=== PATIENT | male | born 1955 | race American Indian/Alaskan Native ===

== ENCOUNTER 2017-07-08 15:11 | Inpatient (IN) | payer MEDICAID, OTHER ==
--- NOTE | 2017-07-08 15:34 | ED PDOC ---
Arrival/HPI - General Chief Complaint: Psychiatric Evaluation Time Seen by Provider: 07/08/17 15:13 Historian: Patient - History of Present Illness Narrative History of Present Illness (Text): 07/08/17 15:30 A 62 year old male, whose past medical history includes liver cirrhosis and bipolar disorder, was [facility] for reported [facility] behavior. Limited history provided by penitentiary record. Patient is currently alert, awake and cooperative. He denies any physical complaints at this time. Patient denies any fever, chills, nausea, vomiting, abdominal pain, chest pain, shortness of breath or any other complaints. Time/Duration: Prior to Arrival Context: Home (penitentiary) Past Medical History - Provider Review Nursing Documentation Reviewed: Yes - Infectious Disease Hx of Infectious Diseases: None - Cardiac Hx Hypertension: Yes - Hematological/Oncological Hx Cirrhosis: Yes - Psychiatric Hx Bipolar Disorder: Yes Hx Substance Use: No Family/Social History - Physician Review Nursing Documentation Reviewed: Yes Family/Social History: No Known Family HX Smoking Status: Unknown If Ever Smoked Hx Alcohol Use: No Hx Substance Use: No Allergies/Home Meds Allergies/Adverse Reactions: Allergies clonidine Allergy (Verified 07/08/17 15:26) RASH Penicillins Allergy (Verified 07/08/17 15:26) RASH codone Allergy (Uncoded 07/08/17 15:26) RASH Home Medications: Home Meds Medication Instructions Recorded Confirmed Acetaminophen [Tylenol 325mg tab] 650 mg PO Q4 PRN 07/08/17 07/08/17 Aspirin [Ecotrin] 81 mg PO DAILY 07/08/17 07/08/17 Atorvastatin [Lipitor] 20 mg PO DAILY 07/08/17 07/08/17 Bisacodyl [Dulcolax] 0 mg RC PRN PRN 07/08/17 07/08/17 Furosemide [Lasix] 40 mg PO DAILY 07/08/17 07/08/17 Gabapentin [Neurontin] 100 mg PO BID 07/08/17 07/08/17 Levothyroxine [Levoxyl] 0.05 mg PO DAILY 07/08/17 07/08/17 Losartan [Cozaar] 50 mg PO DAILY 07/08/17 07/08/17 Magnesium Hydroxide [Milk Of 30 ml PO PRN PRN 07/08/17 07/08/17 Magnesia] Metoprolol Tartrate [Lopressor] 25 mg PO BID 07/08/17 07/08/17 Omeprazole 20 mg PO DAILY 07/08/17 07/08/17 QUEtiapine [SEROquel] 50 mg PO BID 07/08/17 07/08/17 Sod Phos,M-B/Na Phos,Di-Ba [Fleet 0 ml RC PRN PRN 07/08/17 07/08/17 Enema] Review of Systems - Physician Review All systems were reviewed & negative as marked: Yes - Review of Systems Constitutional: Normal. absent: Fevers, Night Sweats Respiratory: absent: SOB Cardiovascular: absent: Chest Pain Gastrointestinal: absent: Abdominal Pain, Nausea, Vomiting Psychiatric: Other (Nursig home reported aggressive behavior) Physical Exam Vital Signs Reviewed: Yes Vital Signs Temp Pulse Resp BP Pulse Ox 07/08/17 15:15 98.0 F 66 16 108/62 96 Temperature: Afebrile Blood Pressure: Normal Pulse: Regular Respiratory Rate: Normal Appearance: Positive for: Well-Appearing, Non-Toxic, Comfortable Pain Distress: None Mental Status: Positive for: Alert and Oriented X 3, other (Cooperative) - Systems Exam Head: Present: Atraumatic, Normocephalic Pupils: Present: PERRL Extroacular Muscles: Present: EOMI Conjunctiva: Present: Normal Mouth: Present: Moist Mucous Membranes Neck: Present: Normal Range of Motion Respiratory/Chest: Present: Clear to Auscultation, Good Air Exchange. No: Respiratory Distress, Accessory Muscle Use Cardiovascular: Present: Regular Rate and Rhythm, Normal S1, S2. No: Murmurs Abdomen: Present: Normal Bowel Sounds. No: Tenderness, Distention, Peritoneal Signs Back: Present: Normal Inspection Upper Extremity: Present: Normal Inspection. No: Cyanosis, Edema Lower Extremity: Present: Normal Inspection. No: Edema Neurological: Present: GCS=15, CN II-XII Intact, Speech Normal Skin: Present: Warm, Dry, Normal Color. No: Rashes Psychiatric: Present: Alert, Oriented x 3, Normal Insight, Normal Concentration Medical Decision Making ED Course and Treatment: 07/08/17 15:30 Impression: A 62 year old male sent from [facility]entiary for aggressive behavior. At bedside, patient is alert, awake and cooperative. He denies any complaints. Plan: -- Chest xray -- EKG -- Labs -- Urinalysis -- Reassess and disposition Progress Notes: EKG shows NSR at [address]/T wave changes. Interpreted by me. Report Date : 07/08/2017 15:48:31 Procedure: Chest xray Dictator : Parvez Bajwa MD IMPRESSION: No active disease. 07/08/17 18:[address] Oliver, covering for Dr. Back, who accepts patient admission. - Lab Interpretations Lab Results: 07/08/17 16:12 07/08/17 16:12 Lab Results 07/08/17 17:55: Ammonia 74 H 07/08/17 16:12: Alcohol, Quantitative < 10 07/08/17 16:12: Salicylates < 1 L, Acetaminophen < 10.0 L 07/08/17 16:12: Sodium 138, Potassium 4.3, Chloride 107, Carbon Dioxide 22, Anion Gap 13, BUN 19, Creatinine 1.7 H, Est GFR ( Amer) 50, Est GFR (Non- Af Amer) 41, Random Glucose 94, Calcium 8.4, Total Bilirubin 0.8, AST 70 H, ALT 66 H, Alkaline Phosphatase 110, Total Protein 6.6, Albumin 3.2, Globulin 3.5, Albumin/Globulin Ratio 0.9 L 07/08/17 16:12: WBC 3.4 L, RBC 2.60 L, Hgb 9.3 L, Hct 25.9 L, MCV 99.6, MCH 35.8 H, MCHC 35.9, RDW 14.3, Plt Count 99 L, MPV 11.4 H, Gran % 48.6 L, Lymph % (Auto) 33.2, [place] % (Auto) 14.7 H, Eos % (Auto) 3.2, Baso % (Auto) 0.3, Gran # 1.65, Lymph # 1.1 L, [place] # 0.5, Eos # 0.1, Baso # 0.01, Corrected WBC (Man) Cancelled, Neutrophils % (Manual) Cancelled, Band Neutrophils % Cancelled, Lymphocytes % (Manual) Cancelled, Atypical Lymphs % Cancelled, Monocytes % ( Manual) Cancelled, Eosinophils % (Manual) Cancelled, Basophils % (Manual) Cancelled, Metamyelocytes % Cancelled, Myelocytes % Cancelled, Promyelocytes % Cancelled, Nucleated RBC % Cancelled, Hypersegmented Polys Cancelled, Immature Lymphocytes Cancelled, Blast Cells Cancelled, Smudge Cells Cancelled, Toxic Granulation Cancelled, Dohle Bodies Cancelled, Zenia Rods Cancelled, Platelet Evaluation Cancelled, Plt Clumps, EDTA Cancelled, Large Platelets Cancelled, Giant Platelets Cancelled, Polychromasia Cancelled, Hypochromasia Cancelled, Hyperchromasia Cancelled, Poikilocytosis (manual Cancelled, Basophilic Stippling Cancelled, Anisocytosis (manual) Cancelled, Microcytosis (manual) Cancelled, Macrocytosis (manual) Cancelled, Spherocytes Cancelled, Sickle Cells Cancelled, Target Cells Cancelled, Tear Drop Cells Cancelled, Ovalocytes Cancelled, Stomatocytes Cancelled, Helmet Cells Cancelled, Dickerson Rings Cancelled , Mary Cells Cancelled, Acanthocytes (Spur) Cancelled, Rouleaux Cancelled, Schistocytes Cancelled I have reviewed the lab results: Yes - RAD Interpretation Radiology Orders: 07/08/17 15:29 CHEST PORTABLE [RAD] Stat - Medication Orders Current Medication Orders: Acetaminophen (Tylenol 325mg Tab) 650 mg PO Q4 PRN PRN Reason: Pain, moderate (4-7) Aspirin (Ecotrin) 81 mg PO DAILY AMY Atorvastatin Calcium (Lipitor) 20 mg PO DAILY AMY Furosemide (Lasix) 40 mg PO DAILY AMY Gabapentin (Neurontin) 100 mg PO BID AMY PRN Reason: Protocol Lactulose (Enulose) 20 gm PO DAILY AMY Levothyroxine Sodium (Synthroid) 50 mcg PO ACB AMY Losartan Potassium (Cozaar) 50 mg PO DAILY AMY Metoprolol Tartrate (Lopressor) 25 mg PO BID AMY Pantoprazole Sodium (Protonix Ec Tab) 20 mg PO DAILY AMY Quetiapine Fumarate (Seroquel) 50 mg PO BID AMY PRN Reason: Protocol Discontinued Medications Lactulose (Enulose) 20 gm PO STAT STA Stop: 07/08/17 18:52 Last Admin: 07/08/17 20:20 Dose: 20 gm Lorazepam (Ativan) 0.5 mg PO STAT STA PRN Reason: Protocol Stop: 07/08/17 20:19 Last Admin: 07/08/17 20:22 Dose: 0.5 mg Re-Assess: Reassess Psych Meds Document 07/08/17 21:22 NW (Rec: 07/08/17 21:24 [id number]) Reassess Psych Med Effective - Scribe Statement The provider has reviewed the documentation as recorded by the Scribe Inés Benitez Provider Scribe Attestation: All medical record entries made by the Scribe were at my direction and personally dictated by me. I have reviewed the chart and agree that the record accurately reflects my personal performance of the history, physical exam, medical decision making, and the department course for this patient. I have also personally directed, reviewed, and agree with the discharge instructions and disposition. Disposition/Present on Arrival - Present on Arrival Any Indicators Present on Arrival: No History of DVT/PE: No History of Uncontrolled Diabetes: No Urinary Catheter: No History of Decub. Ulcer: No History Surgical Site Infection Following: None - Disposition Have Diagnosis and Disposition been Completed?: Yes Diagnosis: Hyperammonemia Disposition: HOSPITALIZED Disposition Time: 07:00 Condition: STABLE
--- NOTE | 2017-07-08 15:49 | RAD ---
HISTORY: pysch COMPARISON: No prior. FINDINGS: LUNGS: No active pulmonary disease. PLEURA: No significant pleural effusion identified, no pneumothorax apparent. CARDIOVASCULAR: Normal. OSSEOUS STRUCTURES: No significant abnormalities. VISUALIZED UPPER ABDOMEN: Normal. OTHER FINDINGS: None. IMPRESSION: No active disease.
[2017-07-08 16:42] LABS: BASO # 0.01 K/mm3 (0.0-2.0); BASO % 0.3 % (0.0-3.0); EOS # 0.1 (0.0-0.7); EOS % 3.2 % (1.5-5.0); GRAN # 1.65 (1.4-6.5); GRAN % 48.6 % (50.0-68.0); HEMATOCRIT 25.9 % (42.0-52.0); LYMPH # 1.1 (1.2-3.4); LYMPH % 33.2 % (22.0-35.0); MEAN CELL VOLUME 99.6 fl (80.0-105.0); MEAN CORPUSCULAR HEMOGLOBIN 35.8 pg (25.0-35.0); MEAN CORPUSCULAR HGB CONC 35.9 g/dl (31.0-37.0); MEAN PLATELET VOLUME 11.4 fl (7.0-11.0); MONO # 0.5 (0.1-0.6); MONO % 14.7 % (1.0-6.0); RED CELL DISTRIBUTION WIDTH 14.3 % (11.5-14.5); WHITE BLOOD COUNT 3.4 10^3/ul (4.5-11.0)
[2017-07-08 16:47] LABS: ALB/GLOB RATIO 0.9 (1.1-1.8); BILIRUBIN,TOTAL 0.8 mg/dL (0.2-1.3); CALCIUM 8.4 mg/dL (8.4-10.5); POTASSIUM 4.3 mmol/L (3.6-5.0); TOTAL PROTEIN 6.6 g/dL (5.8-8.3)
[2017-07-08 21:46] VITALS: BMI 40.1
[2017-07-08] MEDS ORDERED: QUEtiapine 50 mg XR Tab PO STA (23:13)
--- NOTE | 2017-07-09 04:25 | HP ---
HISTORY OF PRESENT ILLNESS: This is a 62-year-old white male patient who was transferred from custodial because he was manifesting aggressive behavior and confusion. The patient has underlying history of cirrhosis of the liver. Patient also has history of bipolar disorder. PAST MEDICAL HISTORY: Significant that patient has had the history of bipolar disorder before going to the custodial. ALLERGIES: CLONIDINE, PENICILLIN, AND CODEINE. PHYSICAL EXAMINATION: VITAL SIGNS: Temperature 98, pulse is 66 per minute, blood pressure 108/62, patient's oxygen saturation on room air is 96%, respiratory rate is 16. HEENT: Examination of the head is normocephalic. SKIN: The skin shows evidence of leukoderma. NECK: The thyroid is not enlarged. The carotid pulses are present. LUNGS: Trachea is central. Breath sounds are vesicular. No adventitious sounds. HEART: S1 and S2 present. No murmurs, no rubs. ABDOMEN: Soft. Liver and spleen are not palpable. Clinically, patient has no ascites. CENTRAL NERVOUS SYSTEM: Patient has a state of aggressive obsessive personality at this time. Patient has no neurological deficits. He is able to sit up independently and walk. LABORATORY DATA: Blood work; the white count is 3400, patient's hemoglobin is 9.3. Chemistry; the patient's ammonia level is 74, which is elevated. The patient's creatinine is 1.7. GFR is 50, which is low. His EKG and chest x-rays did not reveal any pathology at this time. IMPRESSION AND PLAN: The patient is admitted with altered mental state, behavioral disorder. The patient has cirrhosis of the liver with elevated ammonia level. We are calling a psychiatrist to see the patient and also a consultation with cylinder inspector and tester, Dr. Chevy George for evaluation of the liver disease. The patient's condition seems to be critically stable at this time. His overall prognosis is guarded. We will continue to care for the patient until the patient is seen by his attending physician, Dr. Ezekiel Back, tomorrow morning. Fan Oliver MD ARIEL
--- NOTE | 2017-07-09 06:51 | CP.PCM.PN ---
<Clary Uribe - Last Filed: 07/09/17 11:44> Subjective - Date & Time of Evaluation Date of Evaluation: 07/09/17 Time of Evaluation: 06:50 - Subjective Subjective: Medicine Progress Note for Abdi Rodríguez PGY2 Patient seen and examined at bedside. As per nursing, there were no acute overnight events. Patient feels well today. He is A&O x 2. He denies CP, SOB, n/ v/d, numbness/tingling, fever or chills. He only had 2 BMs since yesterday while on the lactulose. Objective - Vital Signs/Intake and Output Vital Signs (last 24 hours): Temp Pulse Resp BP Pulse Ox 98.0 F 57 L 20 111/63 96 07/08/17 21:23 07/08/17 21:23 07/08/17 21:23 07/08/17 21:23 07/08/17 21:08 Intake and Output: 07/08/17 07/09/17 18:59 06:59 Intake Total 240 Balance 240 - Medications Medications: Current Medications Acetaminophen (Tylenol 325mg Tab) 650 mg PO Q4 PRN PRN Reason: Pain, moderate (4-7) Aspirin (Ecotrin) 81 mg PO DAILY AMY Atorvastatin Calcium (Lipitor) 20 mg PO DAILY AMY Furosemide (Lasix) 40 mg PO DAILY AMY Gabapentin (Neurontin) 100 mg PO BID AMY PRN Reason: Protocol Lactulose (Enulose) 20 gm PO DAILY AMY Levothyroxine Sodium (Synthroid) 50 mcg PO ACB AMY Losartan Potassium (Cozaar) 50 mg PO DAILY AMY Metoprolol Tartrate (Lopressor) 25 mg PO BID AMY Pantoprazole Sodium (Protonix Ec Tab) 20 mg PO DAILY AYM Quetiapine Fumarate (Seroquel) 50 mg PO BID AMY PRN Reason: Protocol - Constitutional Appears: No Acute Distress - Head Exam Head Exam: ATRAUMATIC, NORMAL INSPECTION, NORMOCEPHALIC - Eye Exam Eye Exam: EOMI, Normal appearance, PERRL Pupil Exam: NORMAL ACCOMODATION, PERRL - ENT Exam ENT Exam: Mucous Membranes Moist - Neck Exam Neck Exam: Full ROM - Respiratory Exam Respiratory Exam: Clear to Ausculation Bilateral, NORMAL BREATHING PATTERN. absent: Rales, Rhonchi, Wheezes - Cardiovascular Exam Cardiovascular Exam: REGULAR RHYTHM, +S1, +S2. absent: Gallop, Rubs, Murmur - GI/Abdominal Exam GI & Abdominal Exam: Soft, Normal Bowel Sounds. absent: Rigid, Tenderness, Rebound - Extremities Exam Extremities Exam: Normal Inspection. absent: Pedal Edema - Neurological Exam Neurological Exam: Alert, Awake, CN II-XII Intact, Oriented x3 Additional comments: no asterixis - Psychiatric Exam Psychiatric exam: Normal Affect, Normal Mood Additional comments: tangential speech - Skin Skin Exam: Dry, Intact, Warm Additional comments: vitiligo Assessment and Plan - Assessment and Plan (Free Text) Assessment: This is a 62Y M with PMh of bipolar disorder, HTN, HLD, hyperthroidism, liver cirrhosis secondary to untreated hep C admitted from shelter for confusion and aggressive behavior was found to have hepatic encephalopathy. Plan: 1. Hepatic encephalopathy - Secondary to liver cirrhosis - A&O x 2. No aggressive behavior noted - ammonia elevated to 107 - GI consulted - Lactulose increased - Rifaxamin added 2. HTN - Continue Lasix, Lopressor, Cozaar 3. HLD - Continue Lipitor and ASA 4. Bipolar - Continue Seroquel - Psych consulted 5. Hypothyroidism - Continue Synthroid 6. Hx of Hep C - Untreated - Will follow up with [facility] for further treatment GI ppx: Protonix DVT ppx: SCDs. Dispo: Patient awaiting physical therapy and TCU eval. Upon d/c he will go back to shelter. Case seen, discussed and reviewed with attending. Abdi Uribe PGY2 <Ezekiel Back - Last Filed: 08/07/17 21:37> Objective - Vital Signs/Intake and Output Vital Signs (last 24 hours): Temp Pulse Resp BP Pulse Ox 98.5 F 73 18 123/63 96 07/13/17 07:58 07/13/17 10:27 07/13/17 07:58 07/13/17 10:29 07/13/17 07:58 - Labs Labs: 07/12/17 06:30 07/12/17 06:30 PT 12.6 Seconds (9.9-11.8) H 07/09/17 09:00 INR 1.17 (0.93-1.08) H 07/09/17 09:00 APTT 31.4 Seconds (23.7-30.8) H 07/09/17 09:00 Attending/Attestation - Attestation I have personally seen and examined this patient.: Yes I have fully participated in the care of the patient.: Yes I have reviewed all pertinent clinical information, including history, physical exam and plan: Yes
[2017-07-09 07:10] LABS: BASO # 0.01 K/mm3 (0.0-2.0); BASO % 0.4 % (0.0-3.0); EOS # 0.1 (0.0-0.7); EOS % 3.9 % (1.5-5.0); GRAN # 1.02 (1.4-6.5); GRAN % 40.2 % (50.0-68.0); HEMATOCRIT 25.2 % (42.0-52.0); LYMPH % 40.9 % (22.0-35.0); MEAN CELL VOLUME 99.2 fl (80.0-105.0); MEAN CORPUSCULAR HGB CONC 35.3 g/dl (31.0-37.0); MEAN PLATELET VOLUME 10.8 fl (7.0-11.0); MONO # 0.4 (0.1-0.6); MONO % 14.6 % (1.0-6.0); RED CELL DISTRIBUTION WIDTH 14.2 % (11.5-14.5)
[2017-07-09 07:13] LABS: WHITE BLOOD COUNT 2.5 10^3/ul (4.5-11.0)
[2017-07-09 07:20] LABS: ALB/GLOB RATIO 0.9 (1.1-1.8); ALKALINE PHOSPHATASE 132 U/L (38-133); ALT/SGPT 59 U/L (7-56); AST/SGOT 61 U/L (15-59); BILIRUBIN,TOTAL 0.4 mg/dL (0.2-1.3); BLOOD UREA NITROGEN 16 mg/dL (7-21); CALCIUM 8.1 mg/dL (8.4-10.5); CARBON DIOXIDE 23 mmol/L (21-33); CHLORIDE 110 mmol/L (98-107); GFR AFRICAN-AMERICAN > 60; GLUCOSE,RANDOM 98 mg/dL (70-110); POTASSIUM 4.2 mmol/L (3.6-5.0); SODIUM 140 mmol/L (132-148); TOTAL PROTEIN 5.9 g/dL (5.8-8.3)
[2017-07-09] MEDS ORDERED: Levothyroxine 50 MCG TAB PO SCH (07:30)
[2017-07-09] MEDS ORDERED: Lactulose 10 gm/15 ml (Rectal Use) PR ONE (08:34)
[2017-07-09 09:31] LABS: RETIC% 3.65 % (0.5-1.5)
[2017-07-09 09:53] LABS: BILIRUBIN,DIRECT 0.2 mg/dL (0.0-0.4); BILIRUBIN,TOTAL 0.4 mg/dL (0.2-1.3); TOTAL PROTEIN 6.2 g/dL (5.8-8.3)
[2017-07-09 10:00] LABS: IRON 100 ug/dL (45-180)
[2017-07-09] MEDS ORDERED: Pantoprazole 20 mg EC Tab PO SCH (10:00)
[2017-07-09 10:08] LABS: INR 1.17 (0.93-1.08); PARTIAL THROMBOPLASTIN TIME 31.4 Seconds (23.7-30.8)
--- NOTE | 2017-07-09 14:05 | CT ---
PROCEDURE: CT HEAD WITHOUT CONTRAST. HISTORY: Altered mental status, COMPARISON: None available. TECHNIQUE: Axial computed tomography images were obtained through the head/brain without intravenous contrast. Radiation dose: Total exam DLP = 767 mGy-cm. This CT exam was performed using one or more of the following dose reduction techniques: Automated exposure control, adjustment of the mA and/or kV according to patient size, and/or use of iterative reconstruction technique. FINDINGS: HEMORRHAGE: No intracranial hemorrhage. BRAIN: No mass effect or edema. No atrophy or chronic microvascular ischemic changes. VENTRICLES: Unremarkable. No hydrocephalus. CALVARIUM: Unremarkable. PARANASAL SINUSES: Unremarkable as visualized. No significant inflammatory changes. MASTOID AIR CELLS: Unremarkable as visualized. No inflammatory changes. OTHER FINDINGS: None. IMPRESSION: No acute findings
[2017-07-09 16:16] LABS: URINE BILIRUBIN NEGATIVE (NEGATIVE); URINE BLOOD NEGATIVE (NEGATIVE); URINE GLUCOSE (UA) NEGATIVE (NEGATIVE); URINE KETONE NEGATIVE (NEGATIVE); URINE LEUKOCYTE ESTERASE NEGATIVE Leu/uL (NEGATIVE); URINE PROTEIN NEGATIVE mg/dL (<30 mg/dL); URINE UROBILINOGEN 0.2 E.U./dL (<1 E.U./dL)
[2017-07-09 16:17] LABS: URINE APPEARANCE CLEAR (CLEAR); URINE COLOR YELLOW (YELLOW)
[2017-07-09 17:18] LABS: FOLATE 13.6 ng/mL
--- NOTE | 2017-07-09 18:54 | US ---
HISTORY: cirrhosis COMPARISON: None. TECHNIQUE: Sonographic evaluation of the right upper quadrant of the abdomen. FINDINGS: LIVER: Measures 13.7 cm in length. Diffusely increased echogenicity of the liver parenchyma. Consistent with fatty infiltration. No mass. No biliary ductal dilatation. GALLBLADDER: Unremarkable. No gallstones. COMMON BILE DUCT: Measures 5 mm. No stones. No dilatation. PANCREAS: Pancreas obscured by bowel gas. RIGHT KIDNEY: Measures 10.5 cm in length. Normal echogenicity. No calculus, mass, or hydronephrosis. AORTA: No aneurysmal dilatation. IVC: Unremarkable. OTHER FINDINGS: None . IMPRESSION: Fatty infiltration of the liver. No evidence of cholelithiasis or cholecystitis. Otherwise unremarkable. Pancreas was obscured and could not be evaluated.
--- NOTE | 2017-07-09 19:34 | CARD ---
APPROVED REPORT EKG Measurement Heart [id number] <Conclusion> Normal sinus rhythm Normal ECG
--- NOTE | 2017-07-09 21:33 | PN ---
DATE: 07/09/2017 LOCATION: The patient is seen in room 372, bed 1. SUBJECTIVE: The patient is lying in the bed. The patient is alert, awake, and responsive. The patient's overnight nurses notes were reviewed. No adverse events documented. CURRENT MEDICATIONS: Ecotrin 81 mg daily, lactulose increased to 30 g 3 times a day. The patient was given lactulose retention enema 200 g. The patient is started on Geodon 10 mg IM q. 4 p.r.n., Lasix 40 mg p.o. daily. The patient's Cozaar is held at this time for hypotension, Lipitor 20 mg daily, Lopressor 25 mg twice a day, Neurontin 100 mg twice a day, Neurontin 100 mg h.s., Protonix 40 mg daily, Seroquel 50 mg twice a day, and Seroquel 100 mg h.s., Synthroid 50 mcg daily. The patient is started on 550 mg twice a day. OBJECTIVE: VITAL SIGNS: T-max 98.8, heart rate 59 to 68 to 66, blood pressure averaging around 110-115 systolic, diastolic in the 60s, respiration 18 to 20, O2 saturation 96-99%. Intake and output not documented correctly. HEENT: Head examination is normocephalic and atraumatic. HEENT examination shows pinkish pale conjunctivae. Positive vitiligo noted. No neck rigidity. CHEST: Kyphosis. LUNGS: Examination shows questionable decreased breath sound at the bases. CARDIOVASCULAR: S1, S2, regular rhythm. Questionable soft systolic murmur, left sternal border, left second intercostal space. ABDOMEN: Protuberant. Positive bowel sounds. Nontender. No guarding. No rigidity. No thrill. GENITALIA: Male. RECTAL: Deferred. EXTREMITIES: Lower extremity shows positive vitiligo and upper extremity also shows positive vitiligo, trace swelling of the lower extremity.. No asterixis noted. DIAGNOSTICS: On 07/09/2017, WBC 2.5, hemoglobin/hematocrit 8.9/25.2, platelets 62,000. Sodium 140, potassium 4.2, chloride 110, CO2 23, anion gap 11, BUN 16, creatinine 1.3, GFR 60, glucose 98, calcium 8.1, iron 100, TIBC 247, saturation 41, transferrin 180, ferritin 554, AST 61, ALT 58, alk phos 137, ammonia 107. Vitamin D 25-hydroxy 32 B12 is low. Urinalysis noted salicylate alcohol acetaminophen disease. Blood type A+. Ultrasound of the abdomen noted, which was positive for hepatic steatosis. No evidence of cholecystitis. CT of the head was noted, which was done on 07/09/2017. EKG shows sinus rhythm. IMPRESSION AND PLAN 1. Hepatic encephalopathy with hyperammonemia with behavioral disorder. 2. Hepatic cirrhosis. 3. History of hepatitis C. 4. Pancytopenia with mild lymphocytosis and granulocytopenia. 5. Mild coagulopathy. 6. Status post acute kidney injury. 7. Hyperammonemia. 8. Transaminitis. 9. Hepatic steatosis. 10. Hepatic encephalopathy. 11. History of bipolar disorder. 12. History of hypothyroidism. 13. History of hypertension. 14. Neuropathy. 15. Dyslipidemia. 16. Transient hypotension. 17. Obesity with elevated body mass index of 40. PLAN: At this time, the patient has been seen by hot wound spring production supervisor. The patient has been ordered hepatitis panel, alpha-fetoprotein, repeat ammonia level. Thyroid panel ordered. LFT, magnesium, and phosphorus ordered. HIV ordered. CBC has been ordered. Manual platelet count ordered. The patient has been ordered GI and hematology and psychiatry consultation. The patient has been typed and screened. Heart-healthy diet. Stool for occult blood. TCU evaluation has been ordered. The patient has been updated about his condition. The patient has been ordered out of bed to chair physical therapy. Ambulation therapy ordered. The patient has been explained about all the details. The patient will be followed up very closely. Dictated and electronically signed, not read. Ezekiel Back MD
--- NOTE | 2017-07-09 22:23 | CON ---
DATE: 07/09/2017 REQUESTING PHYSICIAN: Dr. Back. REASON FOR CONSULT: I have been asked to see this 62-year-old male who has a history of cirrhosis of the liver secondary to hepatitis C, bipolar disorder, who was sent to the hospital from the alf for aggressive behavior. The patient has a history of bipolar disorder. The patient was also confused at that time. In the emergency room, the patient was noted to have an elevated serum ammonia level. He is currently awake and alert. He denies any abdominal pain, rectal bleeding, melena, nausea, vomiting, fevers, or chills. PAST MEDICAL HISTORY: Notable for cirrhosis of the liver secondary to hepatitis C, bipolar disorder. He also has a history of hypothyroidism, hyperlipidemia, and hypertension. FAMILY HISTORY: Noncontributory. SOCIAL HISTORY: He denies cigarette smoking. He used to be an intermittent alcohol user in the past. The patient has a history of intravenous drug use [place]. REVIEW OF SYSTEMS: A 14-point review of systems is notable for confusion and aggressive behavior. PHYSICAL EXAMINATION GENERAL: Well developed pleasant male, awake and alert, lying in bed, in no acute distress. VITAL SIGNS: Reveal temperature of 98.8, blood pressure 115/51, heart rate 59. HEENT: Reveal sclerae to be white. Conjunctivae pale. NECK: Supple. CARDIOPULMONARY: Heart exam reveals a regular rate and rhythm. LUNGS: Chest reveal lungs to be clear. ABDOMEN: Obese, soft, nontender. EXTREMITIES: Show no edema. He does have areas of vitiligo on his arms and legs. LABORATORY DATA: Notable for white blood cell count 2.5, hemoglobin 8.9, platelet count is 62,000. Chemistries reveal AST 61, ALT 50, and alkaline phosphatase of 137. Normal iron levels. Serum ammonia level this morning is 107. IMPRESSION: A 62-year-old male with cirrhosis of the liver, most likely secondary to hepatitis C from intravenous drug use during the [place] with elevated ammonia level, aggressive behavior in the alf, history of bipolar disorder. At this point, the patient does not appear to have hepatic encephalopathy. He is awake and alert. There is no asterixis on physical exam. He has been started on lactulose and Xifaxan 550 mg twice a day. He receives his health care and is followed closely at the [facility] (formerly [facility] RECOMMENDATIONS: 1. We will request an ultrasound of the liver to rule out liver mass. 2. We will check alpha-fetoprotein tumor marker. 3. Continue lactulose and Chronulac. 4. Pancytopenia is most likely secondary to cirrhosis. 5. He can be followed up at the [facility] upon discharge from the hospital. Chevy George MD
--- NOTE | 2017-07-09 23:15 | CON ---
PSYCHIATRIC CONSULTATION DATE: HISTORY OF PRESENT ILLNESS: The patient is a 62-year-old male who was transferred from a prison in [place], [place] to our ER due to the fact that he was very agitated and threatening other patients and staff according to the medical electronic record. The patient states he has been very depressed for three years. He was drinking heavily up until a year ago when he was admitted to one of two nursing homes. The patient states that he has been very nervous, anxious and depressed. He was suicidal in the past, but not now. The patient has been found to have an elevated ammonia level. PAST HISTORY: Includes a history of cirrhosis. He has a history of hyperlipidemia, bipolar disorder, hypothyroidism, and hypertension. That is all his history in addition to the alcohol abuse in the past. PERSONAL HISTORY: As noted above, he has been a for three years. He has been in prison for the past 13 months. Claims he has 8 daughters, does not know any of their phone numbers. According to his chart, the [facility] is his legal guardian. The patient does not known any of his daughters' phone numbers. The patient claims he is a [place] and was in the [employer] for three years in [place] in the early 1970s. The patient's history appears possibly unreliable. LABORATORY DATA: The patient's current laboratory data is as follows: Hi toxicology level and alcohol level are negative. His most recent CBC reveals a white count of 2500, hemoglobin 8.9, hematocrit of 25.2 and a platelet count of 62,000. The patient's most recent chemistry: Sodium 140, potassium 4.2, chloride 110, CO2 23, and anion gap 11. The patient's BUN is 16, creatinine 1.3, estimated GFR is greater than 60, calcium 8.1, iron 247, ferritin pending. His most recent AST is 61, ALT is 58. His alkaline phosphatase is 137, his albumin is 3.0. His B12 and folate are pending. CURRENT MEDICATIONS: Include Synthroid 50 mcg daily, Cozaar 50 mg daily, Ecotrin 81 mg daily, Enulose 30 g t.i.d., Lasix 40 mg daily, Lipitor 20 mg daily, Lopressor 25 mg b.i.d., Neurontin 100 mg b.i.d. He is on Seroquel 50 mg b.i.d. He is on rifaximin 550 mg b.i.d., Protonix. REVIEW OF SYSTEM: He has some slightly abdominal pain, a slight back pain, otherwise rest of 12-point review of systems is noncontributory. PHYSICAL EXAMINATION: VITAL SIGNS: His blood pressure is 145/72, pulse 59, afebrile, respiration 20 per minute, and O2 saturation 96% on room air. PSYCHIATRIC: His mental status, he is awake, his speech is somewhat pressure, he is slightly confused, states the year is 1999, initially says the month is April, then corrects to June, not quire sure of the day of the week. Knows that he is in the hospital, does not know the name. The patient is able to have a conversation. Sporacity is somewhat questionable. The patient states he is nervous, anxious, he has been depressed for three years, has been suicidal in the past, not now. The patient claims he has extreme difficulty sleeping at night. He is inappropriately euphoric, at times patient states he is seeing bugs on the wall and on the hair at times. IMPRESSION: The patient has mild delirium secondary to cirrhosis and elevated ammonia level. The patient has a possible history according to his record of bipolar disorder. He has had recent agitation at nursing at home, history of hyperlipidemia, history of past alcohol abuse, history of hypertension in the past, history of hypothyroidism. PLAN: We will order 10 mg IM p.r.n. of Geodon for agitation. We will increase Seroquel to 50 mg b.i.d. and also 100 mg at bedtime. We will also add dose of 300 of gabapentin for sedation at night, as most of it is not metabolized in the liver. We will monitor mental status. I have spoken to social media director. Hopefully, we will get additional family information and verification of patient's history. Mikael Gautam MD MTDEduardo
[2017-07-10] MEDS: Pantoprazole 40 mg EC Tab PO SCH (06:01)
[2017-07-10 06:53] LABS: BASO # 0.01 K/mm3 (0.0-2.0); BASO % 0.4 % (0.0-3.0); EOS # 0.1 (0.0-0.7); EOS % 3.9 % (1.5-5.0); GRAN # 0.97 (1.4-6.5); GRAN % 41.8 % (50.0-68.0); HEMATOCRIT 25.2 % (42.0-52.0); LYMPH # 0.8 (1.2-3.4); LYMPH % 34.9 % (22.0-35.0); MEAN CELL VOLUME 99.6 fl (80.0-105.0); MEAN CORPUSCULAR HEMOGLOBIN 35.2 pg (25.0-35.0); MEAN CORPUSCULAR HGB CONC 35.3 g/dl (31.0-37.0); MEAN PLATELET VOLUME 11.1 fl (7.0-11.0); MONO # 0.4 (0.1-0.6); PLATELET COUNT 76 10^3/uL (120.0-450.0); RED CELL DISTRIBUTION WIDTH 14.4 % (11.5-14.5)
[2017-07-10 06:57] LABS: ALB/GLOB RATIO 0.9 (1.1-1.8); ALKALINE PHOSPHATASE 115 U/L (38-133); ALT/SGPT 51 U/L (7-56); AST/SGOT 57 U/L (15-59); BILIRUBIN,DIRECT 0.2 mg/dL (0.0-0.4); BILIRUBIN,TOTAL 0.5 mg/dL (0.2-1.3); BLOOD UREA NITROGEN 13 mg/dL (7-21); CALCIUM 8.4 mg/dL (8.4-10.5); CARBON DIOXIDE 25 mmol/L (21-33); CHLORIDE 111 mmol/L (98-107); GFR AFRICAN-AMERICAN > 60; GLUCOSE,RANDOM 92 mg/dL (70-110); MAGNESIUM 1.9 mg/dL (1.7-2.2); PHOSPHOROUS 2.7 mg/dL (2.5-4.5); POTASSIUM 4.2 mmol/L (3.6-5.0); SODIUM 140 mmol/L (132-148); TOTAL PROTEIN 5.8 g/dL (5.8-8.3)
--- NOTE | 2017-07-10 07:07 | CP.PCM.PN ---
<Clary Uribe - Last Filed: 07/10/17 10:51> Subjective - Date & Time of Evaluation Date of Evaluation: 07/10/17 Time of Evaluation: 07:03 - Subjective Subjective: Medicine Progress Note for Abdi Rodríguez PGY2 Patient seen and examined at bedside. As per nursing, there were no acute overnight events. Patient feels well today. He is A&O x 2. He denies CP, SOB, n/ v/d, numbness/tingling, fever or chills. Objective - Vital Signs/Intake and Output Vital Signs (last 24 hours): Temp Pulse Resp BP Pulse Ox 98.1 F 56 L 20 87/46 L 99 07/09/17 16:54 07/09/17 16:54 07/09/17 16:54 07/09/17 16:54 07/09/17 16:54 Intake and Output: 07/10/17 07/10/17 06:59 18:59 Intake Total 600 Balance 600 - Medications Medications: Current Medications Acetaminophen (Tylenol 325mg Tab) 650 mg PO Q4 PRN PRN Reason: Pain, moderate (4-7) Aspirin (Ecotrin) 81 mg PO DAILY [facility] Last Admin: 07/09/17 10:13 Dose: 81 mg Atorvastatin Calcium (Lipitor) 20 mg PO DAILY [facility] Last Admin: 07/09/17 10:13 Dose: 20 mg Furosemide (Lasix) 40 mg PO DAILY [facility] Last Admin: 07/09/17 10:13 Dose: 40 mg Gabapentin (Neurontin) 100 mg PO BID [facility] PRN Reason: Protocol Last Admin: 07/09/17 18:25 Dose: 100 mg Gabapentin (Neurontin) 100 mg PO HS [facility] Last Admin: 07/09/17 22:01 Dose: 100 mg Lactulose (Enulose) 30 gm PO TID [facility] Last Admin: 07/09/17 18:25 Dose: 30 gm Levothyroxine Sodium (Synthroid) 50 mcg PO ACB [facility] Last Admin: 07/09/17 07:39 Dose: 50 mcg Metoprolol Tartrate (Lopressor) 25 mg PO BID [facility] Last Admin: 07/09/17 18:02 Dose: Not Given Pantoprazole Sodium (Protonix Ec Tab) 40 mg PO 0600 [facility] Last Admin: 07/10/17 06:01 Dose: 40 mg Quetiapine Fumarate (Seroquel) 50 mg PO BID [facility] PRN Reason: Protocol Last Admin: 07/09/17 18:25 Dose: 50 mg Quetiapine Fumarate (Seroquel) 100 mg PO HS [facility] Last Admin: 07/09/17 22:01 Dose: 100 mg Rifaximin (Xifaxan) 550 mg PO BID [facility] PRN Reason: Protocol Last Admin: 07/09/17 18:25 Dose: 550 mg Ziprasidone (Geodon Inj) 10 mg IM Q4H PRN PRN Reason: Agitation - Labs Labs: 07/09/17 06:00 07/09/17 06:00 PT 12.6 Seconds (9.9-11.8) H 07/09/17 09:00 INR 1.17 (0.93-1.08) H 07/09/17 09:00 APTT 31.4 Seconds (23.7-30.8) H 07/09/17 09:00 - Constitutional Appears: No Acute Distress - Head Exam Head Exam: ATRAUMATIC, NORMAL INSPECTION, NORMOCEPHALIC - Eye Exam Eye Exam: EOMI, Normal appearance, PERRL Pupil Exam: NORMAL ACCOMODATION, PERRL - ENT Exam ENT Exam: Mucous Membranes Moist - Neck Exam Neck Exam: Full ROM, Normal Inspection - Respiratory Exam Respiratory Exam: Clear to Ausculation Bilateral, NORMAL BREATHING PATTERN. absent: Rales, Rhonchi, Wheezes - Cardiovascular Exam Cardiovascular Exam: +S1, +S2. absent: Gallop, REGULAR RHYTHM, Rubs, Murmur - GI/Abdominal Exam GI & Abdominal Exam: Soft, Normal Bowel Sounds. absent: Rigid, Tenderness, Mass , Rebound - Extremities Exam Extremities Exam: Normal Inspection. absent: Calf Tenderness, Pedal Edema - Neurological Exam Neurological Exam: Alert, Awake, CN II-XII Intact, Oriented x3 - Psychiatric Exam Psychiatric exam: Normal Affect, Normal Mood - Skin Skin Exam: Dry, Intact, Warm Additional comments: vitiligo Assessment and Plan - Assessment and Plan (Free Text) Assessment: This is a 62Y M with PMh of bipolar disorder, HTN, HLD, hyperthroidism, liver cirrhosis secondary to untreated hep C admitted from prison for confusion and aggressive behavior was found to have hepatic encephalopathy. Plan: 1. Aggressive behavior - Secondary to hepatic encephalopathy versus bipolar disorder - A&O x 2 - No aggressive behavior noted as per nursing - Ammonia level trending down - GI consulted- recs appreciated - Hepatic U/S showed fatty liver - AFP pending 2. Neutropenia - ANC: 943 - Granix given once - Heme consulted - neutropenic precaution 3. Anemia/pancytopenia - Iron studies showed anemia of chronic disease - Heme consulted - HIV negative 4. HTN - Lasix, Lopressor decreased 5. HLD - ASA, Lipitor 6. Bipolar - Continue Seroquel - Geodon prn - Continue Neurontin - Psych consulted- recs appreciated 7. Hypothyroidism - TSH high, T4 Low - Synthroid increased from 50 to 75mcg 8. Hx of Hep C-Untreated - Will follow up [facility] for further treatment GI ppx: Protonix DVT ppx: SCDs. Dispo: Patient awaiting physical therapy and TCU eval. Upon d/c he will go back to prison. Patient will follow up with [facility] clinic. Case seen, discussed and reviewed with attending. Abdi Uribe PGY2 <Ezekiel Back U - Last Filed: 08/07/17 21:37> Objective - Vital Signs/Intake and Output Vital Signs (last 24 hours): Temp Pulse Resp BP Pulse Ox 98.5 F 73 18 123/63 96 07/13/17 07:58 07/13/17 10:27 07/13/17 07:58 07/13/17 10:29 07/13/17 07:58 - Labs Labs: 07/12/17 06:30 07/12/17 06:30 PT 12.6 Seconds (9.9-11.8) H 07/09/17 09:00 INR 1.17 (0.93-1.08) H 07/09/17 09:00 APTT 31.4 Seconds (23.7-30.8) H 07/09/17 09:00 Attending/Attestation - Attestation I have personally seen and examined this patient.: Yes I have fully participated in the care of the patient.: Yes I have reviewed all pertinent clinical information, including history, physical exam and plan: Yes
[2017-07-10 07:11] LABS: FREE T4 0.67 ng/dL (0.78-2.19); T4 4.2 ug/dL (5.5-11.0)
[2017-07-10 07:15] LABS: WHITE BLOOD COUNT 2.3 10^3/ul (4.5-11.0)
[2017-07-10 07:24] LABS: THYROID STIMULATING HORMONE 5.24 mIU/mL (0.46-4.68)
[2017-07-10 09:11] LABS: NEUTROPHIL 49 % (50.0-70.0)
[2017-07-10 09:12] LABS: ANISOCYTOSIS 1+; HYPOCHROMIA 1+; LARGE PLATELETS PRESENT; PLATELET ESTIMATE LOW (NORMAL); POLYCHROMASIA SLIGHT
[2017-07-10 09:13] LABS: OVALOCYTES SLIGHT
--- NOTE | 2017-07-10 14:23 | PN ---
DATE OF VISIT: 07/10/2017 SUBJECTIVE: The patient is a sitting in chair, comfortable. He denies any abdominal pain, nausea, vomiting, or rectal bleeding. PHYSICAL EXAMINATION: VITAL SIGNS: Revealed, temperature 98.5, blood pressure 101/54, heart rate is 60. GENERAL: The patient is awake, alert, not combative. ABDOMEN: Soft. Nontender. EXTREMITIES: Show no edema. There is no asterixis. LABORATORY DATA: White blood cell count 2.3, hemoglobin 8.9, platelet count is 80,000. Serum ammonia level was down to 84. Chemistries reveal normal electrolytes. IMPRESSION: This is a 62-year-old male with bipolar disorder, cirrhosis of the liver secondary to hepatitis C admitted to the hospital with combative behavior at the alf. His serum ammonia level was elevated and he was somewhat confused. He has been treated with lactulose and Xifaxan 550 mg twice a day with improvement of his mentation and hepatic encephalopathy. RECOMMENDATION: Continue lactulose and Xifaxan 550 mg p.o. b.i.d. The patient is followed at the [facility] for his medical problems as well as his liver disease. Chevy George MD
--- NOTE | 2017-07-10 16:56 | CP.PCM.PCO ---
Physician Communication Note - Physician Communication Note Physician Communication Note: responded to code hobson, stat dose of ativan IV given, pt callmed down/sleep
--- NOTE | 2017-07-10 19:48 | PN ---
DATE: SUBJECTIVE: Patient is a 62-year-old -[place] male who is originally admitted to the emergency room due to extreme agitation and belligerency. Patient also has history of cirrhosis. He has a history of hepatic encephalopathy. Today, patient was demanding to be allowed to leave the hospital despite the fact that he has nowhere to go and he is felt to be incompetent. Patient is a guardian of the State. I made an attempt to discuss with the patient his current conditions and reason for needing to remain in the hospital; however, he is unable to calm down and accept any rational understanding of why he was admitted initially. Discussed case with medical office supervisor. I also spoke with fellow psychiatrist and clinical nurse depot manager of psychiatric unit and nursing staff here on the floor. LABORATORY DATA: Patient's current laboratory data is sodium 140, potassium 4.2, chloride 111, CO2 25, anion gap 8, BUN 13, creatinine 1.2, estimated GFR greater than 60. All other liver functions are normal except for an ammonia level which today is 84. His albumin is 2.7, his free T4 is 0.67, his T4 is 4.2, TSH is 5.24. Patient's CBC today revealed white count of 2300, hemoglobin of 8.9, hematocrit of 25.2, [place] [address], [place] [address]. His absolute neutrophil count is currently unavailable. MEDICATIONS: Patient's current medications include Ecotrin, Enulose, p.r.n. IM Geodon, Lasix 40 mg daily, Lipitor 20 mg daily, Lopressor 12.5 mg b.i.d., Gabapentin 100 mg b.i.d. and 100 mg at bedtime, Protonix 40 mg daily, Seroquel 50 mg b.i.d. and 100 mg at bedtime. His Synthroid was increased to 75 mcg every morning. He is on rifaximin 550 mg b.i.d. PHYSICAL EXAMINATION: VITAL SIGNS: Blood pressure 101/54, pulse 60, afebrile, respirations 20, O2 saturation reportedly 97% on room air. PSYCHIATRIC: Mental status: He is dressed in all his street clothes. He is very agitated. He is demanding to be discharged from the hospital. He is oriented to month and he is not quite sure what the name of the hospital is. His recent memory is mildly impaired, recalls 1 of 3 objects after 3 minutes. Patient states recently he has been seeing bugs flying in the air. Patient denies suicidal intent. He is very argumentative, highly verbally belligerent. His thinking is very irrational. Patient currently is on one-to-one observation. IMPRESSION: Patient has mild hepatic encephalopathy. He has probable history of bipolar disorder with paranoia and confusion. Patient has elevated ammonia. He has pancytopenia, thrombocytopenia. Patient has hypothyroidism. History of cirrhosis. History of alcohol abuse. PLAN: When consulted with fellow psychiatrist, he was giving him 100 mg p.o. stat of Seroquel and 1 mg IV push of Ativan and we will continue to discuss with staff and we will increase Seroquel to 100 mg b.i.d. and 200 mg at bedtime and continue if the patient is agitated, uncontrollable Geodon 20 mg IM q. 4 h. p.r.n. Patient should not be allowed to leave the hospital as he is totally incompetent at this time in my opinion. We will closely monitor his mental status. Mikael Gautam MD
[2017-07-11] MEDS: Levothyroxine 75 MCG TAB PO SCH (05:58)
[2017-07-11] MEDS: Pantoprazole 40 mg EC Tab PO SCH (05:58)
[2017-07-11 07:00] LABS: BASO # 0.01 K/mm3 (0.0-2.0); BASO % 0.1 % (0.0-3.0); EOS # 0.1 (0.0-0.7); GRAN # 8.15 (1.4-6.5); GRAN % 82.1 % (50.0-68.0); HEMATOCRIT 25.1 % (42.0-52.0); LYMPH % 10.2 % (22.0-35.0); MEAN CELL VOLUME 99.6 fl (80.0-105.0); MEAN CORPUSCULAR HEMOGLOBIN 35.3 pg (25.0-35.0); MEAN CORPUSCULAR HGB CONC 35.5 g/dl (31.0-37.0); MEAN PLATELET VOLUME 10.9 fl (7.0-11.0); MONO # 0.7 (0.1-0.6); MONO % 6.6 % (1.0-6.0); RED CELL DISTRIBUTION WIDTH 14.7 % (11.5-14.5); WHITE BLOOD COUNT 9.9 10^3/ul (4.5-11.0)
--- NOTE | 2017-07-11 07:03 | CP.PCM.PN ---
<Clary Uribe - Last Filed: 07/11/17 10:49> Subjective - Date & Time of Evaluation Date of Evaluation: 07/11/17 Time of Evaluation: 07:01 - Subjective Subjective: Medicine Progress Note for Abdi Rodríguez PGY2 Patient seen and examined at bedside. Yesterday patient was agitated and wanted to leave. Patient was given geodon and ativan. As per psych, patient is not able to make own decisions. He has a 1:1 sitter. He was given Ativan 30min prior to examination and was confused upon examination. He denies CP, SOB, n/v/d , numbness/tingling, fever or chills. Objective - Vital Signs/Intake and Output Vital Signs (last 24 hours): Temp Pulse Resp BP Pulse Ox 98.5 F 84 18 109/60 95 07/11/17 06:00 07/11/17 06:00 07/11/17 06:00 07/11/17 06:00 07/11/17 06:00 Intake and Output: 07/11/17 07/11/17 06:59 18:59 Intake Total 1020 Output Total 1000 Balance 20 - Medications Medications: Current Medications Acetaminophen (Tylenol 325mg Tab) 650 mg PO Q4 PRN PRN Reason: Pain, moderate (4-7) Aspirin (Ecotrin) 81 mg PO DAILY [facility] Last Admin: 07/10/17 10:16 Dose: 81 mg Atorvastatin Calcium (Lipitor) 20 mg PO DAILY [facility] Last Admin: 07/10/17 10:15 Dose: 20 mg Furosemide (Lasix) 40 mg PO DAILY [facility] Last Admin: 07/10/17 10:16 Dose: Not Given Gabapentin (Neurontin) 100 mg PO BID [facility] PRN Reason: Protocol Last Admin: 07/10/17 18:14 Dose: 100 mg Gabapentin (Neurontin) 100 mg PO HS [facility] Last Admin: 07/10/17 21:39 Dose: 100 mg Lactulose (Enulose) 30 gm PO TID [facility] Last Admin: 07/10/17 18:13 Dose: 30 gm Levothyroxine Sodium (Synthroid) 75 mcg PO 0600 [facility] Last Admin: 07/11/17 05:58 Dose: 75 mcg Lorazepam (Ativan) 0.5 mg IVP TID PRN; Protocol PRN Reason: agitation/anxiety Last Admin: 07/11/17 05:59 Dose: 0.5 mg Metoprolol Tartrate (Lopressor) 12.5 mg PO BID [facility] Last Admin: 07/10/17 17:45 Dose: Not Given Pantoprazole Sodium (Protonix Ec Tab) 40 mg PO 0600 [facility] Last Admin: 07/11/17 05:58 Dose: 40 mg Quetiapine Fumarate (Seroquel) 200 mg PO HS [facility] Last Admin: 07/10/17 21:40 Dose: 200 mg Quetiapine Fumarate (Seroquel) 100 mg PO BID [facility] Last Admin: 07/10/17 18:14 Dose: 100 mg Rifaximin (Xifaxan) 550 mg PO BID [facility] PRN Reason: Protocol Last Admin: 07/10/17 18:14 Dose: 550 mg Ziprasidone (Geodon Inj) 20 mg IM Q4H PRN PRN Reason: Agitation - Labs Labs: 07/10/17 05:30 07/10/17 05:30 PT 12.6 Seconds (9.9-11.8) H 07/09/17 09:00 INR 1.17 (0.93-1.08) H 07/09/17 09:00 APTT 31.4 Seconds (23.7-30.8) H 07/09/17 09:00 - Constitutional Appears: No Acute Distress - Head Exam Head Exam: ATRAUMATIC, NORMAL INSPECTION, NORMOCEPHALIC - Eye Exam Eye Exam: Normal appearance, PERRL Pupil Exam: NORMAL ACCOMODATION, PERRL - ENT Exam ENT Exam: Mucous Membranes Moist - Neck Exam Neck Exam: Full ROM - Respiratory Exam Respiratory Exam: Clear to Ausculation Bilateral. absent: Rales, Rhonchi, Wheezes - Cardiovascular Exam Cardiovascular Exam: REGULAR RHYTHM, +S1, +S2. absent: Gallop, Rubs, Murmur - GI/Abdominal Exam GI & Abdominal Exam: Soft, Normal Bowel Sounds. absent: Rigid, Tenderness, Rebound - Extremities Exam Extremities Exam: Normal Inspection. absent: Calf Tenderness, Pedal Edema - Neurological Exam Neurological Exam: Awake, CN II-XII Intact. absent: Oriented x3 Neuro motor strength exam: Left Upper Extremity: 5, Right Upper Extremity: 5, Left Lower Extremity: 5, Right Lower Extremity: 5 - Skin Skin Exam: Dry, Intact, Warm Additional comments: vitiligo Assessment and Plan - Assessment and Plan (Free Text) Assessment: This is a 62Y M with PMh of bipolar disorder, HTN, HLD, hyperthroidism, liver cirrhosis secondary to untreated hep C admitted from [facility] for confusion and aggressive behavior. Plan: 1. Aggressive behavior - Secondary to hepatic encephalopathy versus bipolar disorder - Ammonia level increased to 116 - Continue Rixamin and lactulose - Psych consulted- increased seroquel and added ativan - Ativan decreased to BID prn secondary to confusion - GI consulted- recs appreciated - Hepatic U/S showed fatty liver - AFP slightly elevated - Spoke with Dr. George (GI), psych meds OK as long as liver enzymes are monitored 2. Neutropenia - resolved - Granix given once - Heme consulted - neutropenic precaution d/c 3. Anemia/pancytopenia - Iron studies showed anemia of chronic disease - Heme consulted - HIV negative 4. HTN - Continue Lasix, Lopressor 5. HLD - ASA, Lipitor 6. Bipolar - Continue Seroquel - Geodon prn, Ativan prn - Continue Neurontin - Psych consulted- recs appreciated 7. Hypothyroidism - TSH high, T4 Low - Synthroid 75mcg 8. Hx of Hep C-Untreated - Will follow up [facility] for further treatment GI ppx: Protonix DVT ppx: SCDs. Dispo: PT reports patient can be d/c back to [facility]- no need for TCU. Upon d/c [facility] will go back to [facility]. Patient will follow up with [facility] clinic. Patient will be d/c home once cleared by Psych. Case seen, discussed and reviewed with attending. Abdi Uribe PGY2 <Ezekiel Back U - Last Filed: 08/07/17 21:37> Objective - Vital Signs/Intake and Output Vital Signs (last 24 hours): Temp Pulse Resp BP Pulse Ox 98.5 F 73 18 123/63 96 07/13/17 07:58 07/13/17 10:27 07/13/17 07:58 07/13/17 10:29 07/13/17 07:58 - Labs Labs: 07/12/17 06:30 07/12/17 06:30 PT 12.6 Seconds (9.9-11.8) H 07/09/17 09:00 INR 1.17 (0.93-1.08) H 07/09/17 09:00 APTT 31.4 Seconds (23.7-30.8) H 07/09/17 09:00 Attending/Attestation - Attestation I have personally seen and examined this patient.: Yes I have fully participated in the care of the patient.: Yes I have reviewed all pertinent clinical information, including history, physical exam and plan: Yes
[2017-07-11 07:14] LABS: ALKALINE PHOSPHATASE 170 U/L (38-133); ALT/SGPT 60 U/L (7-56); AST/SGOT 62 U/L (15-59); BILIRUBIN,DIRECT 0.2 mg/dL (0.0-0.4); BILIRUBIN,TOTAL 0.5 mg/dL (0.2-1.3); BLOOD UREA NITROGEN 11 mg/dL (7-21); CALCIUM 8.4 mg/dL (8.4-10.5); CARBON DIOXIDE 23 mmol/L (21-33); CHLORIDE 111 mmol/L (98-107); GFR AFRICAN-AMERICAN > 60; GLUCOSE,RANDOM 130 mg/dL (70-110); POTASSIUM 3.7 mmol/L (3.6-5.0); SODIUM 141 mmol/L (132-148); TOTAL PROTEIN 5.8 g/dL (5.8-8.3)
[2017-07-11] MEDS ORDERED: Lactulose 10 gm/15 ml (Rectal Use) PR ONE (11:19)
--- NOTE | 2017-07-11 14:03 | PN ---
DATE: 07/10/2017 LOCATION: The patient seen in room 372, bed 1. SUBJECTIVE: The patient is seen lying in the bed. The patient is now put on neutropenic precaution because of low absolute neutrophil count. The patient was seen and examined with a medical sales representative. The patient is alert, awake, responsive. The patient's overnight nurses' notes were reviewed. The patient is stating and expressing his wishes to be discharged today, but the patient is under a legal guardian service. PHYSICAL EXAM: VITAL SIGNS: T-max afebrile, heart rate 60s to high 50s, respirations 18 to 20, O2 saturation is mid-to-high 90s. Blood pressure 110/70, 116/82. HEENT: Head examination is normocephalic and atraumatic. HEENT examination shows pinkish pale conjunctivae, anicteric sclerae. No oropharyngeal lesion. No neck rigidity. CHEST: Symmetrical. LUNGS: Examination shows no rales, crackles, or wheezing. CARDIOVASCULAR: S1, S2, regular rhythm. ABDOMEN: Slightly protuberant, obese, distended. No . SKIN: Positive vitiligo noted of the skin. MUSCULOSKELETAL: Shows an elevated body mass index. Trace swelling of the lower extremity noted. No pitting edema. No asterixis noted. VASCULAR EXAMINATION: Palpable pulses. DIAGNOSTICS: Reviewed. The patient still has neutropenia, anemia, thrombocytopenia, and ANC is less than 1000. Electrolytes show elevated transaminase and ammonia level is now in 70s. The patient seen by psychiatry. The patient seen by gastroenterology. Their recommendations were noted. IMPRESSION: 1. Questionable possible hepatic encephalopathy with altered mental status with behavioral disorder. 2. Hyperammonemia. 3. Pancytopenia with severe neutropenia and leukopenia with ANC below 1000. 4. History of hepatitis C. 5. Bipolar disorder. 6. Bradycardia. 7. Hypotension. 8. Elevated alpha-fetoprotein. 9. Obesity. 10. Vitiligo. 11. Behavioral disorder. 1. Hepatic encephalopathy with hyperammonemia with behavioral disorder. 2. Hepatic cirrhosis. 3. History of hepatitis C. 4. Pancytopenia with mild lymphocytosis and granulocytopenia. 5. Mild coagulopathy. 6. Status post acute kidney injury. 7. Hyperammonemia. 8. Transaminitis. 9. Hepatic steatosis. 10. Hepatic encephalopathy. 11. History of bipolar disorder. 12. History of hypothyroidism. 13. History of hypertension. 14. Neuropathy. 15. Dyslipidemia. 16. Transient hypotension. 17. Obesity with elevated body mass index of 40. PLAN: At this time, the patient's antihypertensive will be adjusted. The patient's beta blockers will be reduced to optimize blood pressure control and heart rate. The patient's psychiatric medications have been titrated and adjusted by Dr. Gautam. The patient is awaiting hematology/oncology evaluation. The patient's medications are as per MAR which are reviewed as of 07/10/2017. The patient is awaiting hematology/oncology evaluation. The patient will be considered for discharge back to senior care once stable and cleared by psychiatry, hematology/oncology, and gastroenterology. The patient has been recommended by gastroenterology to continue future followup at [facility] for further treatment. Dictated and electronically signed, not read. Signing off, Ezekiel Back MD. Ezekiel Back MD MTDD
--- NOTE | 2017-07-11 16:59 | CP.PCM.CON ---
History of Present Illness - History of Present Illness History of Present Illness: 62 yo man admitted with confusion, agitation, found to have pancytopenia, asymptomatic, work up showing normal iron studies, normal B12 level. Also found to have an elevated alphafetoprotein. Patient denies bleeding, easy bruising, fever, night sweats or weight loss. PMHX as per chart showing Liver cirrhosis, bipolar disorder Past Patient History - Infectious Disease Hx of Infectious Diseases: None - Past Social History Smoking Status: Unknown If Ever Smoked - CARDIAC Hx Hypertension: Yes - PULMONARY Hx Pneumonia: Yes Hx Sleep Apnea: Yes - HEMATOLOGICAL/ONCOLOGICAL Hx Cirrhosis: Yes - MUSCULOSKELETAL/RHEUMATOLOGICAL Hx Arthritis: Yes Hx Falls: Yes - GENITOURINARY/GYNECOLOGICAL Hx Urinary Tract Infection: Yes - PSYCHIATRIC Hx Bipolar Disorder: Yes Hx Substance Use: No Meds Allergies/Adverse Reactions: Allergies Allergy/AdvReac Type Severity Reaction Status Date / Time clonidine Allergy RASH Verified 07/08/17 15:26 Penicillins Allergy RASH Verified 07/08/17 15:26 codone Allergy RASH Uncoded 07/08/17 15:26 - Medications Medications: Current Medications Acetaminophen (Tylenol 325mg Tab) 650 mg PO Q4 PRN PRN Reason: Pain, moderate (4-7) Aspirin (Ecotrin) 81 mg PO DAILY [facility] Last Admin: 07/11/17 09:48 Dose: 81 mg Atorvastatin Calcium (Lipitor) 20 mg PO DAILY [facility] Last Admin: 07/11/17 09:49 Dose: 20 mg Furosemide (Lasix) 40 mg PO DAILY [facility] Last Admin: 07/11/17 09:47 Dose: 40 mg Gabapentin (Neurontin) 100 mg PO BID [facility] PRN Reason: Protocol Last Admin: 07/11/17 09:49 Dose: 100 mg Gabapentin (Neurontin) 100 mg PO HS [facility] Last Admin: 07/10/17 21:39 Dose: 100 mg Lactulose (Enulose) 30 gm PO TID [facility] Last Admin: 07/11/17 13:14 Dose: 30 gm Levothyroxine Sodium (Synthroid) 75 mcg PO 0600 [facility] Last Admin: 07/11/17 05:58 Dose: 75 mcg Metoprolol Tartrate (Lopressor) 12.5 mg PO BID [facility] Last Admin: 07/11/17 09:46 Dose: 12.5 mg Pantoprazole Sodium (Protonix Ec Tab) 40 mg PO 0600 [facility] Last Admin: 07/11/17 05:58 Dose: 40 mg Quetiapine Fumarate (Seroquel) 200 mg PO HS [facility] Last Admin: 07/10/17 21:40 Dose: 200 mg Quetiapine Fumarate (Seroquel) 100 mg PO BID [facility] Last Admin: 07/11/17 09:48 Dose: 100 mg Rifaximin (Xifaxan) 550 mg PO BID [facility] PRN Reason: Protocol Last Admin: 07/11/17 09:48 Dose: 550 mg Ziprasidone (Geodon Inj) 20 mg IM Q4H PRN PRN Reason: Agitation Results - Vital Signs Recent Vital Signs: Last Vital Signs Temp 98.5 F 07/11/17 08:51 Pulse 84 07/11/17 08:51 Resp 18 07/11/17 08:51 BP 112/62 07/11/17 09:47 Pulse Ox 95 07/11/17 08:51 - Labs Result Diagrams: 07/11/17 06:30 07/11/17 06:30 Labs: Laboratory Results - last 24 hr 07/11/17 07/11/17 07/11/17 06:30 06:30 06:30 WBC 9.9 D RBC 2.52 L Hgb 8.9 L Hct 25.1 L MCV 99.6 MCH 35.3 H MCHC 35.5 RDW 14.7 H Plt Count 70 L Manual Plt Count 75 L* MPV 10.9 Gran % 82.1 H Lymph % (Auto) 10.2 L [place] % (Auto) 6.6 H Eos % (Auto) 1.0 L Baso % (Auto) 0.1 Gran # 8.15 H Lymph # 1.0 L [place] # 0.7 H Eos # 0.1 Baso # 0.01 Sodium 141 Potassium 3.7 Chloride 111 H Carbon Dioxide 23 Anion Gap 11 BUN 11 Creatinine 1.2 Est GFR ( Amer) > 60 Est GFR (Non-Af Amer) > 60 Random Glucose 130 H Calcium 8.4 Total Bilirubin 0.5 Direct Bilirubin 0.2 AST 62 H ALT 60 H Alkaline Phosphatase 170 H Ammonia 116 H Total Protein 5.8 Albumin 2.9 L Globulin 3.0 Albumin/Globulin Ratio 1.0 L Assessment & Plan - Assessment and Plan (Free Text) Assessment: 62 yo man with asymptomatic pancytopenia, previous records not available. 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 and the possibility of a liver 'tumor', that may be malignant and the need for a CAT scan. At this time patient is very reluctant to get further testing, and said he will follow up at the [facility] No further work up at this time, unless the patient agrees to it
--- NOTE | 2017-07-11 19:46 | PN ---
DATE: SUBJECTIVE: Patient is a 62-year-old -[place] male who is admitted to the hospital for agitation, confusion and psychosis. Patient has had a history of elevated ammonia level. Yesterday, it is quite agitated. His doses of Seroquel were increased. Patient today, I spoke with nursing staff and interviewed patient. The patient is calm today, but still experiencing auditory and visual hallucination. He has seen and heard birds and birds chirping earlier this morning. Patient is sightly confused, he is oriented to months and year and knows he is in hospital. His recent memory is mildly impaired. Patient is much more cooperative, however, much less argumentative than yesterday. LABORATORY DATA: Patient's current laboratory data; his white count has gone from 2300 to 9900, his hemoglobin is still 8.9, hematocrit of 25.1, his manual platelet count is 75,000. His metabolic profile; his sodium 141, potassium 3.7, chloride 111, CO2 of 223, anion gap 11, BUN 11, creatinine 1.2, estimated GFR 60. Patient's random glucose 130, his total bilirubin is 0.5, his AST is 62, his ALT is 60, alk phos 170, his ammonia level is gone from 84 yesterday to 116 today, albumin 2.9. CURRENT MEDICATIONS: Include; low dose aspirin 81 mg, Enulose, Lasix 40 mg daily, Lipitor 20 mg daily, Neurontin 100 mg b.i.d and 100 mg at bedtime, Protonix 40 mg q. a.m, Lopressor 12.5 mg b.i.d., he has p.r.n. order for Geodon 20 mg q.6 h. p.r.n for agitation which he has not received, he is on sequel 100 mg b.i.d and 200 mg at bedtime, Synthroid 75 mcg q. a.m. His is on lactulose one extra dose until today. Patient's case was discussed with the nursing staff, medical dermatologist. Patient also reviewed consultation from [facility]. Patient has cirrhosis most likely secondary to hepatitis C from intravenous drug use during [place]. PHYSICAL EXAMINATION: VITAL SIGNS: Blood pressure 112/62, pulse 84, afebrile, respirations 18 per minute. REVIEW OF SYSTEMS: Patient denies back pain, chest pain, abdominal pain or other complaints except for psychiatric symptoms, as noted above. IMPRESSION: Patient has hepatic encephalopathy with visual and auditory hallucination. He has history of cirrhosis from alcohol abuse and possible IV drug use. Patient has elevated ammonia level. He has thrombocytopenia and severe anemia. PLAN: Continue Seroquel 100 mg b.i.d and 200 mg at bedtime. Patient has a one to one sitter. We will continue to closely monitor mental status, we will revaluate tomorrow. Mikael Gautam MD
[2017-07-11] MEDS: QUEtiapine 200 mg XR Tab PO SCH (21:04)
--- NOTE | 2017-07-11 23:40 | PN ---
DATE: 07/11/2017 SUBJECTIVE: The patient was seen in room 372, bed 1. The patient has been on 1:1. The patient yesterday attempted to elope and leave the floor against the medical advice and Quir[facility] Travis was called and Psychiatry, Dr. Ordonez responded to and the patient was given some Ativan and the patient was put on 1:1 observation. The patient has been calm after that. The patient was seen lying in the bed. The patient is alert, awake and oriented x3. PHYSICAL EXAMINATION VITAL SIGNS: T-max afebrile, heart rate 64, 78, 92, respirations 18 to 20, blood pressure 128/70 and 134/84 and O2 saturation of mid to high 90s. HEENT: Head examination is normocephalic and atraumatic. HEENT examination shows pinkish pale conjunctivae. Anicteric sclerae. No oropharyngeal lesion. No neck rigidity. CHEST: Kyphosis. LUNGS: Shows no rales, crackles or wheezing. CARDIOVASCULAR: S1 and S2. Regular rhythm. ABDOMEN: Protuberant. Positive bowel sounds. GENITALIA: Male. RECTAL: Examination is deferred. EXTREMITIES: Shows no pitting edema. Trace swelling of the lower extremities. SKIN: Shows positive vitiligo. MUSCULOSKELETAL: Shows an elevated body mass index. NEUROLOGIC: The patient is alert, awake, and responsive. Follows command. Moves upper and lower extremity without assistance. GAIT: Could not be tested, but as per the nurses note, the patient has been ambulating independently on the floor yesterday. PSYCHIATRIC: As per the psychiatry notes. DIAGNOSTIC DATA: Reviewed. The patient's ANC count has improved after the . WBC count is greater than 9.0. The patient's . IMPRESSION AND PLAN: 1. Status post Code Travis. 2. Bipolar disorder. 3. Behavioral disorder with unsuccessful attempt to elope. 4. Possible hepatic encephalopathy. 5. Hyperammonemia. 6. Hepatitis C with hepatic cirrhosis. 7. Pancytopenia. 8. Transaminitis. 9. Morbid obesity. 10. History of hypertension. 11. Episodic transient hypotension. 12. Status post bradycardia. 13. History of hepatitis C. 1. Questionable possible hepatic encephalopathy with altered mental status with behavioral disorder. 2. Hyperammonemia. 3. Pancytopenia with severe neutropenia and leukopenia with ANC below 1000. 4. History of hepatitis C. 5. Bipolar disorder. 6. Bradycardia. 7. Hypotension. 8. Elevated alpha-fetoprotein. 9. Obesity. 10. Vitiligo. 11. Behavioral disorder. 1. Hepatic encephalopathy with hyperammonemia with behavioral disorder. 2. Hepatic cirrhosis. 3. History of hepatitis C. 4. Pancytopenia with mild lymphocytosis and granulocytopenia. 5. Mild coagulopathy. 6. Status post acute kidney injury. 7. Hyperammonemia. 8. Transaminitis. 9. Hepatic steatosis. 10. Hepatic encephalopathy. 11. History of bipolar disorder. 12. History of hypothyroidism. 13. History of hypertension. 14. Neuropathy. 15. Dyslipidemia. 16. Transient hypotension. 17. Obesity with elevated body mass index of 40. PLAN: At this time, the patient's psychiatric medications has been adjusted by the Psychiatrist. The patient has been prompt now on Geodon p.r.n. in addition to Seroquel. The patient is to be continued on lactulose three times a day 30 grams. The patient's diagnostic data will be repeated, which will be reviewed on a daily basis. The patient's management discussed with the residents and Psychiatry and Gastroenterology. We are awaiting the Hematology/Oncology evaluation for further recommendations. The patient will be considered for discharge back to [facility] once cleared by Psychiatry, Gastroenterology, Neurology and Nephrology. The patient has been updated about the diagnosis test results and awaiting further recommendations from all consultants. Today, the patient appeared to be calm after receiving pharmacological interventions as per Psychiatrist. At present, the patient will be continued on all the medications as per the MAR today, which was reviewed with the residents. Dictated and electronically signed, not read. Signing off, Ezekiel Back MD [facility]
[2017-07-12] MEDS: Pantoprazole 40 mg EC Tab PO SCH (06:33)
[2017-07-12] MEDS: Levothyroxine 75 MCG TAB PO SCH (06:34)
[2017-07-12 07:17] LABS: BASO # 0.01 K/mm3 (0.0-2.0); BASO % 0.1 % (0.0-3.0); EOS # 0.2 (0.0-0.7); EOS % 1.8 % (1.5-5.0); GRAN # 7.45 (1.4-6.5); GRAN % 79.8 % (50.0-68.0); HEMATOCRIT 26.8 % (42.0-52.0); LYMPH # 1.1 (1.2-3.4); LYMPH % 11.7 % (22.0-35.0); MEAN CORPUSCULAR HEMOGLOBIN 35.8 pg (25.0-35.0); MEAN CORPUSCULAR HGB CONC 35.8 g/dl (31.0-37.0); MONO # 0.6 (0.1-0.6); MONO % 6.6 % (1.0-6.0); RED CELL DISTRIBUTION WIDTH 14.9 % (11.5-14.5); WHITE BLOOD COUNT 9.3 10^3/ul (4.5-11.0)
--- NOTE | 2017-07-12 07:18 | CP.PCM.PN ---
<Clary Uribe - Last Filed: 07/12/17 11:49> Subjective - Date & Time of Evaluation Date of Evaluation: 07/12/17 Time of Evaluation: 07:14 - Subjective Subjective: Medicine Progress Note for Abdi Sanford PGY2 Patient seen and examined at bedside. Yesterday patient was agitated and received 1mg of Ativan. Psych evaluated patient and increased his seroquel. Since then patient has remained calm and did not require any further prn medication. He is A&O x 3 today. He denies CP, SOB, n/v/d, numbness/tingling, fever, chills, visual or auditory hallucinations. Objective - Vital Signs/Intake and Output Vital Signs (last 24 hours): Temp Pulse Resp BP Pulse Ox -98 F L 78 20 138/88 9 L 07/11/17 22:00 07/11/17 22:00 07/11/17 22:00 07/11/17 22:00 07/11/17 22:00 - Medications Medications: Current Medications Acetaminophen (Tylenol 325mg Tab) 650 mg PO Q4 PRN PRN Reason: Pain, moderate (4-7) Aspirin (Ecotrin) 81 mg PO DAILY [facility] Last Admin: 07/11/17 09:48 Dose: 81 mg Atorvastatin Calcium (Lipitor) 20 mg PO DAILY [facility] Last Admin: 07/11/17 09:49 Dose: 20 mg Furosemide (Lasix) 40 mg PO DAILY [facility] Last Admin: 07/11/17 09:47 Dose: 40 mg Gabapentin (Neurontin) 100 mg PO BID [facility] PRN Reason: Protocol Last Admin: 07/11/17 17:18 Dose: 100 mg Gabapentin (Neurontin) 100 mg PO HS [facility] Last Admin: 07/11/17 21:18 Dose: 100 mg Lactulose (Enulose) 30 gm PO TID [facility] Last Admin: 07/11/17 17:18 Dose: 30 gm Levothyroxine Sodium (Synthroid) 75 mcg PO 0600 [facility] Last Admin: 07/12/17 06:34 Dose: Not Given Metoprolol Tartrate (Lopressor) 12.5 mg PO BID [facility] Last Admin: 07/11/17 17:20 Dose: 12.5 mg Pantoprazole Sodium (Protonix Ec Tab) 40 mg PO 0600 [facility] Last Admin: 07/12/17 06:33 Dose: Not Given Quetiapine Fumarate (Seroquel Xr) 400 mg PO HS [facility] Last Admin: 07/11/17 21:04 Dose: 400 mg Quetiapine Fumarate (Seroquel) 50 mg PO 0800,1400,1800 [facility] Rifaximin (Xifaxan) 550 mg PO BID [facility] PRN Reason: Protocol Last Admin: 07/11/17 17:18 Dose: 550 mg Ziprasidone (Geodon Inj) 20 mg IM Q4H PRN PRN Reason: Agitation Last Admin: 07/11/17 18:20 Dose: 20 mg - Labs Labs: 07/11/17 06:30 07/11/17 06:30 PT 12.6 Seconds (9.9-11.8) H 07/09/17 09:00 INR 1.17 (0.93-1.08) H 07/09/17 09:00 APTT 31.4 Seconds (23.7-30.8) H 07/09/17 09:00 - Constitutional Appears: No Acute Distress - Head Exam Head Exam: ATRAUMATIC, NORMAL INSPECTION, NORMOCEPHALIC - Eye Exam Eye Exam: Normal appearance, PERRL Pupil Exam: NORMAL ACCOMODATION, PERRL - ENT Exam ENT Exam: Mucous Membranes Moist - Neck Exam Neck Exam: Full ROM, Normal Inspection - Respiratory Exam Respiratory Exam: Clear to Ausculation Bilateral, NORMAL BREATHING PATTERN. absent: Rales, Rhonchi, Wheezes - Cardiovascular Exam Cardiovascular Exam: REGULAR RHYTHM, +S1, +S2. absent: Gallop, Rubs, Murmur - GI/Abdominal Exam GI & Abdominal Exam: Soft, Normal Bowel Sounds. absent: Rigid, Tenderness, Mass , Rebound - Extremities Exam Extremities Exam: Normal Inspection. absent: Calf Tenderness, Pedal Edema - Neurological Exam Neurological Exam: Alert, Awake, CN II-XII Intact, Normal Gait, Oriented x3 Additional comments: no asterixis - Psychiatric Exam Psychiatric exam: Normal Affect, Normal Mood - Skin Skin Exam: Dry, Intact, Warm. absent: Normal Color (vitiligo ) Assessment and Plan - Assessment and Plan (Free Text) Assessment: This is a 62Y M with PMH of bipolar disorder, HTN, HLD, hyperthyroidism, liver cirrhosis secondary to untreated hep C admitted from [facility] for confusion and aggressive behavior. Plan: 1. Aggressive behavior - Secondary to hepatic encephalopathy versus bipolar disorder - Ammonia level today is 80 - Rixamin and lactulose - 1:1 sitter d/c - Psych consulted- increased seroquel again- pt not clear for d/c - GI consulted- recs appreciated - psych meds OK as long as liver enzymes are monitored periodically - Hepatic U/S showed fatty liver - AFP slightly elevated 2. Anemia/pancytopenia - Iron studies showed anemia of chronic disease - Heme consulted- reports it is secondary to hypersplenism - HIV negative 3. HTN - Lasix, Lopressor 4. HLD - Continue ASA, Lipitor 5. Bipolar disorder - Continue Seroquel, Neurontin - Geodon prn - Psych consulted- recs appreciated 6. Hypothyroidism - Synthroid 75mcg - Repeat thyroid studies as outpatient 7. Hx of Hep C-Untreated - Will follow up with [facility] for further treatment GI ppx: Protonix DVT ppx: SCDs, Pt ambulating Dispo: PT reports patient can be d/c back to [facility]- no need for TCU. Upon d/c he will go back to [facility]. Psych cleared pt to be d/c. 1:1 sitter d/c. Pt can be d/c tomorrow once he is without sitter for 24hrs. Case seen, discussed and reviewed with attending. Abdi Uribe PGY2 <Ezekiel Back U - Last Filed: 08/07/17 21:38> Objective - Vital Signs/Intake and Output Vital Signs (last 24 hours): Temp Pulse Resp BP Pulse Ox 98.5 F 73 18 123/63 96 07/13/17 07:58 07/13/17 10:27 07/13/17 07:58 07/13/17 10:29 07/13/17 07:58 - Labs Labs: 07/12/17 06:30 07/12/17 06:30 PT 12.6 Seconds (9.9-11.8) H 07/09/17 09:00 INR 1.17 (0.93-1.08) H 07/09/17 09:00 APTT 31.4 Seconds (23.7-30.8) H 07/09/17 09:00 Attending/Attestation - Attestation I have personally seen and examined this patient.: Yes I have fully participated in the care of the patient.: Yes I have reviewed all pertinent clinical information, including history, physical exam and plan: Yes
[2017-07-12 07:46] LABS: ALB/GLOB RATIO 0.8 (1.1-1.8); ALKALINE PHOSPHATASE 156 U/L (38-133); ALT/SGPT 57 U/L (7-56); AST/SGOT 67 U/L (15-59); BILIRUBIN,DIRECT 0.2 mg/dL (0.0-0.4); BILIRUBIN,TOTAL 0.6 mg/dL (0.2-1.3); BLOOD UREA NITROGEN 9 mg/dL (7-21); CALCIUM 8.5 mg/dL (8.4-10.5); CARBON DIOXIDE 25 mmol/L (21-33); CHLORIDE 112 mmol/L (98-107); GFR AFRICAN-AMERICAN > 60; GLUCOSE,RANDOM 90 mg/dL (70-110); POTASSIUM 3.8 mmol/L (3.6-5.0); SODIUM 144 mmol/L (132-148); TOTAL PROTEIN 6.1 g/dL (5.8-8.3)
[2017-07-12] MEDS ORDERED: Lactulose 10 gm/15 ml (Rectal Use) PR ONE (09:11)
--- NOTE | 2017-07-12 11:05 | CP.PCM.DIS ---
Provider - Provider Date of Admission: 07/08/17 18:54 Attending physician: Ezekiel Back MD Primary care physician: Ashwin Davey DO Consults: Psych: Dr. Gautam GI: Dr. George Time Spent in preparation of Discharge (in minutes): 35 Hospital Course - Lab Results Lab Results: Most Recent Lab Values WBC 9.3 10^3/ul (4.5-11.0) 07/12/17 06:30 RBC 2.68 10^6/uL (3.5-6.1) L 07/12/17 06:30 Hgb 9.6 g/dL (14.0-18.0) L 07/12/17 06:30 Hct 26.8 % (42.0-52.0) L 07/12/17 06:30 MCV 100.0 fl (80.0-105.0) 07/12/17 06:30 MCH 35.8 pg (25.0-35.0) H 07/12/17 06:30 MCHC 35.8 g/dl (31.0-37.0) 07/12/17 06:30 RDW 14.9 % (11.5-14.5) H 07/12/17 06:30 Plt Count 73 10^3/uL (120.0-450.0) L 07/12/17 06:30 Manual Plt Count 85 K/mm3 (120-450) L 07/12/17 06:30 MPV 11.0 fl (7.0-11.0) 07/12/17 06:30 Gran % 79.8 % (50.0-68.0) H 07/12/17 06:30 Lymph % (Auto) 11.7 % (22.0-35.0) L 07/12/17 06:30 Norton % (Auto) 6.6 % (1.0-6.0) H 07/12/17 06:30 Eos % (Auto) 1.8 % (1.5-5.0) 07/12/17 06:30 Baso % (Auto) 0.1 % (0.0-3.0) 07/12/17 06:30 Gran # 7.45 (1.4-6.5) H 07/12/17 06:30 Lymph # 1.1 (1.2-3.4) L 07/12/17 06:30 Norton # 0.6 (0.1-0.6) 07/12/17 06:30 Eos # 0.2 (0.0-0.7) 07/12/17 06:30 Baso # 0.01 K/mm3 (0.0-2.0) 07/12/17 06:30 Corrected WBC (Man) Cancelled 07/08/17 16:12 Neutrophils % (Manual) 49 % (50.0-70.0) L 07/10/17 05:30 Band Neutrophils % Cancelled 07/08/17 16:12 Lymphocytes % (Manual) 31 % (22.0-35.0) 07/10/17 05:30 Atypical Lymphs % Cancelled 07/08/17 16:12 Monocytes % (Manual) 20 % (1.0-6.0) H 07/10/17 05:30 Eosinophils % (Manual) Cancelled 07/08/17 16:12 Basophils % (Manual) Cancelled 07/08/17 16:12 Metamyelocytes % Cancelled 07/08/17 16:12 Myelocytes % Cancelled 07/08/17 16:12 Promyelocytes % Cancelled 07/08/17 16:12 Nucleated RBC % Cancelled 07/08/17 16:12 Hypersegmented Polys Cancelled 07/08/17 16:12 Immature Lymphocytes Cancelled 07/08/17 16:12 Blast Cells Cancelled 07/08/17 16:12 Smudge Cells Cancelled 07/08/17 16:12 Toxic Granulation Cancelled 07/08/17 16:12 Dohle Bodies Cancelled 07/08/17 16:12 Zenia Rods Cancelled 07/08/17 16:12 Platelet Evaluation Low (NORMAL) 07/10/17 05:30 Plt Clumps, EDTA Cancelled 07/08/17 16:12 Large Platelets Present 07/10/17 05:30 Giant Platelets Cancelled 07/08/17 16:12 Polychromasia Slight 07/10/17 05:30 Hypochromasia 1+ 07/10/17 05:30 Hyperchromasia Cancelled 07/08/17 16:12 Poikilocytosis (manual Cancelled 07/08/17 16:12 Basophilic Stippling Cancelled 07/08/17 16:12 Anisocytosis (manual) 1+ 07/10/17 05:30 Microcytosis (manual) Cancelled 07/08/17 16:12 Macrocytosis (manual) Cancelled 07/08/17 16:12 Spherocytes Cancelled 07/08/17 16:12 Sickle Cells Cancelled 07/08/17 16:12 Target Cells Cancelled 07/08/17 16:12 Tear Drop Cells Cancelled 07/08/17 16:12 Ovalocytes Slight 07/10/17 05:30 Stomatocytes Cancelled 07/08/17 16:12 Helmet Cells Cancelled 07/08/17 16:12 [place] Rings Cancelled 07/08/17 16:12 Tyrone Cells Cancelled 07/08/17 16:12 Acanthocytes (Spur) Cancelled 07/08/17 16:12 Rouleaux Cancelled 07/08/17 16:12 Schistocytes Cancelled 07/08/17 16:12 Retic Count 3.65 % (0.5-1.5) H 07/09/17 06:30 PT 12.6 Seconds (9.9-11.8) H 07/09/17 09:00 INR 1.17 (0.93-1.08) H 07/09/17 09:00 APTT 31.4 Seconds (23.7-30.8) H 07/09/17 09:00 Sodium 144 mmol/L (132-148) 07/12/17 06:30 Potassium 3.8 mmol/L (3.6-5.0) 07/12/17 06:30 Chloride 112 mmol/L (98-107) H 07/12/17 06:30 Carbon Dioxide 25 mmol/L (21-33) 07/12/17 06:30 Anion Gap 11 (10-20) 07/12/17 06:30 BUN 9 mg/dL (7-21) 07/12/17 06:30 Creatinine 1.0 mg/dL (0.5-1.4) 07/12/17 06:30 Est GFR ( Amer) > 60 07/12/17 06:30 Est GFR (Non-Af Amer) > 60 07/12/17 06:30 Random Glucose 90 mg/dL (70-110) 07/12/17 06:30 Calcium 8.5 mg/dL (8.4-10.5) 07/12/17 06:30 Phosphorus 2.7 mg/dL (2.5-4.5) 07/10/17 05:30 Magnesium 1.9 mg/dL (1.7-2.2) 07/10/17 05:30 Iron 100 ug/dL (45-180) 07/09/17 Unknown TIBC 247 ug/dL (261-462) L 07/09/17 Unknown % Saturation 41 % (20-55) 07/09/17 Unknown Transferrin 176.96 mg/dL (206-381) L 07/09/17 09:00 Erythropoietin 18.9 mIU/mL (2.6-18.5) H 07/09/17 08:38 Ferritin 554.0 ng/mL 07/09/17 09:00 Total Bilirubin 0.6 mg/dL (0.2-1.3) 07/12/17 06:30 Direct Bilirubin 0.2 mg/dL (0.0-0.4) 07/12/17 06:30 AST 67 U/L (15-59) H 07/12/17 06:30 ALT 57 U/L (7-56) H 07/12/17 06:30 Alkaline Phosphatase 156 U/L (38-133) H 07/12/17 06:30 Ammonia 80 umol/L (9-33) H 07/12/17 08:30 Total Protein 6.1 g/dL (5.8-8.3) 07/12/17 06:30 Albumin 2.8 g/dL (3.0-4.8) L 07/12/17 06:30 Globulin 3.3 gm/dL 07/12/17 06:30 Albumin/Globulin Ratio 0.8 (1.1-1.8) L 07/12/17 06:30 Alpha Fetoprotein 13.8 ng/mL (0.0-7.5) H 07/10/17 05:30 Vitamin B12 597 pg/mL (239-931) 07/09/17 09:00 25-OH Vitamin D Total 32.1 NG/ML (30.0-100.0) 07/09/17 10:30 Folate 13.6 ng/mL 07/09/17 09:00 Free T4 0.67 ng/dL (0.78-2.19) L 07/10/17 05:30 Thyroxine (T4) 4.2 ug/dL (5.5-11.0) L 07/10/17 05:30 TSH 3rd Generation 5.24 mIU/mL (0.46-4.68) H 07/10/17 05:30 Urine Color Yellow (YELLOW) 07/09/17 16:00 Urine Appearance Clear (CLEAR) 07/09/17 16:00 Urine pH 6.0 (4.7-8.0) 07/09/17 16:00 Ur Specific [place] 1.020 (1.005-1.035) 07/09/17 16:00 Urine Protein Negative mg/dL (<30 mg/dL) 07/09/17 16:00 Urine Glucose (UA) Negative mg/dL (NEGATIVE) 07/09/17 16:00 Urine Ketones Negative mg/dL (NEGATIVE) 07/09/17 16:00 Urine Blood Negative (NEGATIVE) 07/09/17 16:00 Urine Nitrate Negative (NEGATIVE) 07/09/17 16:00 Urine Bilirubin Negative (NEGATIVE) 07/09/17 16:00 Urine Urobilinogen 0.2 E.U./dL (<1 E.U./dL) 07/09/17 16:00 Ur Leukocyte Esterase Negative Angela/uL (NEGATIVE) 07/09/17 16:00 Salicylates < 1 mg/dL (2.0-20.0) L 07/08/17 16:12 Acetaminophen < 10.0 ug/ml (10.0-20.0) L 07/08/17 16:12 Alcohol, Quantitative < 10 mg/dL (0-10) 07/08/17 16:12 Hepatitis A IgM Ab Negative (NEGATIVE) 07/10/17 05:30 Hep Bs Antigen Negative (NEGATIVE) 07/10/17 05:30 Hep B Core IgM Ab Negative (NEGATIVE) 07/10/17 05:30 Hepatitis C Antibody Reactive (NEGATIVE) 07/10/17 05:30 HIV-1 Antibody TEST NOT PERFORMED 07/09/17 08:38 HIV-2 Antibody TEST NOT PERFORMED 07/09/17 08:38 HIV 1&2 Ag/Ab, 4th Gen Nonreactive (Nonreactive) 07/09/17 08:38 Blood Type O POSITIVE 07/09/17 09:00 Blood Type Confirm O POSITIVE 07/09/17 10:13 Antibody Screen Negative 08/22/17 09:00 Crossmatch See Detail 07/09/17 09:00 BBK History Checked No verified bt 07/09/17 09:00 - Hospital Course Hospital Course: This is a 62Y M with PMH of bipolar disorder, HTN, HLD, hyperthyroidism, liver cirrhosis secondary to untreated hep C admitted from retirement for confusion and aggressive behavior. Head CT was negative for acute process. Patient was noted to have an elevated ammonia. Gi was consulted. Behavior could have been secondary to hepatic encephalopathy versus bipolar disorder. Patient was given Lactulose and Rifaxamin was given. Ammonia trended down. Hepatic encephalopathy unlikely due to no asterixis seen. Psych was consutled. Patient had As per GI, the psych meds patient is on can affect the liver. Patient will need periodic monitoring of LFTs. - Date & Time of H&P Date of H&P: 07/08/17 Time of H&P: 21:00 Discharge Exam - Head Exam Head Exam: ATRAUMATIC, NORMAL INSPECTION, NORMOCEPHALIC - Eye Exam Eye Exam: Normal appearance, PERRL Pupil Exam: NORMAL ACCOMODATION, PERRL - ENT Exam ENT Exam: Mucous Membranes Moist - Respiratory Exam Respiratory Exam: Clear to PA & Lateral, NORMAL BREATHING PATTERN, UNREMARKABLE. absent: Rales, Rhonchi, Wheezes - Cardiovascular Exam Cardiovascular Exam: REGULAR RHYTHM, +S1, +S2. absent: Gallop, Rubs, Systolic Murmur - GI/Abdominal Exam GI & Abdominal Exam: Normal Bowel Sounds, Soft, Unremarkable. absent: Mass, Rebound, Rigid, Tenderness - Neurological Exam Neurological exam: Alert, CN II-XII Intact, Oriented x3 - Psychiatric Exam Psychiatric exam: Normal Affect, Normal Mood - Skin Skin Exam: Dry, Intact, Warm Additional comments: vitiligo Discharge Plan - Follow Up Plan Condition: STABLE Disposition: OTHER INSTITUTION Referrals: Ashwin Davey DO [Primary Care Provider] -
--- NOTE | 2017-07-12 14:33 | PN ---
DATE: SUBJECTIVE: The patient is a 62-year-old -[place] male. He was admitted to the hospital due to behavioral disturbances. He has history of cirrhosis. His psychotropic medicines had been adjusted in recent days. Reviewed the chart, spoke to attending physician, spoke to nursing staff, spoke to high school social studies tutor. PHYSICAL EXAMINATION: MENTAL STATUS: Today, he is awake, he is alert, he is lying on bed, he is oriented to month, year and place. He no longer has having visual or auditory hallucinations. He does not appear to be having any adverse effects to psychotropic medicine. His recent memory is mildly limitedly impaired. Denies any suicidal ideations or depression. The patient's judgment and insight is somewhat impaired due to his underlying conditions. The patient is cooperating with nursing care. CURRENT MEDICATIONS: Include Seroquel immediate release 50 mg t.i.d. and Seroquel extended release 400 mg at bedtime. He is also receiving Enulose, Ecotrin 81 mg, Lasix 40 mg, Lipitor 20 mg daily, Neurontin 100 mg b.i.d. and at bedtime, Xifaxan 550 mg b.i.d, Protonix 40 mg daily, Lopressor 12.5 mg b.i.d. He did have an order for Geodon injectable 20 mg IM, but receive none overnight. He is receiving Synthroid 75 mcg q. a.m. LABORATORY DATA: White count is 9300, hemoglobin is now 9.6, and his platelet count is 85,000. His chemistry; sodium 144, potassium 3.8, chloride 112, CO2 of 25 and anion gap of 11, BUN of 9, and creatinine 1.0. SMA; GFR greater then 60, random glucose 90, calcium 8.5, total bilirubin is 0.6, AST 67, ALT 57, and alk phos 156. His ammonia level is 80. His total protein is 6.1 and his albumin is 2.8. PHYSICAL EXAMINATION: VITAL SIGNS: Blood pressure 104/60, pulse 66, respiration 18, temperature afebrile. REVIEW OF SYSTEMS: Denies any chest pain, shortness of breath, abdominal pain, headache, or dizziness. Mikael Gautam MD
[2017-07-12 16:30] VITALS: RESP 18
--- NOTE | 2017-07-12 19:04 | PN ---
DATE: 07/12/2017 SUBJECTIVE: The patient is seen lying in the bed in room 372, bed 1. The patient is arousable, slightly lethargic, but arousable, alert, awake, and responsive, oriented to person, place, my name, and his name. The patient is able to follow simple command. The patient is able to sit up without assistance. PHYSICAL EXAMINATION: VITAL SIGNS: As per the vital signs section of the [facility], which was reviewed and as per the residence note. The patient is awake to sit up up from lying position. HEENT: Head examination: Normocephalic atraumatic. HEENT examination shows pinkish pale conjunctivae. Anicteric sclerae. No oropharyngeal lesion. No neck rigidity. CHEST: Symmetrical. LUNGS: Shows no rales, crackles or wheezing. CARDIOVASCULAR: S1 and S2. Regular rhythm. ABDOMEN: Protuberant. Obese. Positive bowel sounds. GENITALIA: Male. RECTAL: Examination is deferred. EXTREMITIES: Shows no pitting edema. No calf tenderness and no Homans sign. MUSCULOSKELETAL: Shows an elevated body mass index. SKIN: Shows positive vitiligo. LABORATORY DATA: The patient's diagnostic data reviewed from today and also reviewed with the expert medical writer. The patient's recommendation by psychiatry noted. The patient's management and discharge planning discussed with Dr. Gautam. Dr. Gautam has cleared the patient to return back to skilled nursing. The patient does not need any inpatient psychiatric treatment at evaluation and management as per the psychiatrist. IMPRESSION AND PLAN: 1. Acute exacerbation of bipolar disorder with behavioral disorder. 2. Behavioral disorders with agitation and poor compliance (resolved). 3. Status post Code Travis. 4. Pancytopenia secondary to hepatitis C and hepatic cirrhosis and hypersplenism. 5. History of hepatitis C. 6. History of vitiligo. 7. History of hypertension. 8. History of hypothyroidism. 9. History of poor compliance. 10. History of bipolar disorder. 11. History of psychiatric illnesses. 12. Pancytopenia. 13. Transamination. 14. Hyperammonemia. 15. Hyperthyroidism. 1. Status post Code Travis. 2. Bipolar disorder. 3. Behavioral disorder with unsuccessful attempt to elope. 4. Possible hepatic encephalopathy. 5. Hyperammonemia. 6. Hepatitis C with hepatic cirrhosis. 7. Pancytopenia. 8. Transaminitis. 9. Morbid obesity. 10. History of hypertension. 11. Episodic transient hypotension. 12. Status post bradycardia. 13. History of hepatitis C. 1. Questionable possible hepatic encephalopathy with altered mental status with behavioral disorder. 2. Hyperammonemia. 3. Pancytopenia with severe neutropenia and leukopenia with ANC below 1000. 4. History of hepatitis C. 5. Bipolar disorder. 6. Bradycardia. 7. Hypotension. 8. Elevated alpha-fetoprotein. 9. Obesity. 10. Vitiligo. 11. Behavioral disorder. 1. Hepatic encephalopathy with hyperammonemia with behavioral disorder. 2. Hepatic cirrhosis. 3. History of hepatitis C. 4. Pancytopenia with mild lymphocytosis and granulocytopenia. 5. Mild coagulopathy. 6. Status post acute kidney injury. 7. Hyperammonemia. 8. Transaminitis. 9. Hepatic steatosis. 10. Hepatic encephalopathy. 11. History of bipolar disorder. 12. History of hypothyroidism. 13. History of hypertension. 14. Neuropathy. 15. Dyslipidemia. 16. Transient hypotension. 17. Obesity with elevated body mass index of 40. 1. Status post Code Travis. 2. Bipolar disorder. 3. Behavioral disorder with unsuccessful attempt to elope. 4. Possible hepatic encephalopathy. 5. Hyperammonemia. 6. Hepatitis C with hepatic cirrhosis. 7. Pancytopenia. 8. Transaminitis. 9. Morbid obesity. 10. History of hypertension. 11. Episodic transient hypotension. 12. Status post bradycardia. 13. History of hepatitis C. 1. Questionable possible hepatic encephalopathy with altered mental status with behavioral disorder. 2. Hyperammonemia. 3. Pancytopenia with severe neutropenia and leukopenia with ANC below 1000. 4. History of hepatitis C. 5. Bipolar disorder. 6. Bradycardia. 7. Hypotension. 8. Elevated alpha-fetoprotein. 9. Obesity. 10. Vitiligo. 11. Behavioral disorder. 1. Hepatic encephalopathy with hyperammonemia with behavioral disorder. 2. Hepatic cirrhosis. 3. History of hepatitis C. 4. Pancytopenia with mild lymphocytosis and granulocytopenia. 5. Mild coagulopathy. 6. Status post acute kidney injury. 7. Hyperammonemia. 8. Transaminitis. 9. Hepatic steatosis. 10. Hepatic encephalopathy. 11. History of bipolar disorder. 12. History of hypothyroidism. 13. History of hypertension. 14. Neuropathy. 15. Dyslipidemia. 16. Transient hypotension. 17. Obesity with elevated body mass index of 40. At present, the patient's one-to-one will be discontinued. The patient will be kept in front of the nursing station for close observation. The patient has been cleared by psychiatry to return to skilled nursing. The patient will be observed for the next 24 hours of one-to-one. If the patient stays stable without any behavioral disturbances or behavioral changes, the patient will be discharged back to skilled nursing after official clearance by psychiatry. The patient's medications and MAR reviewed from today. Dictated and electronically signed, not read. Signing off, Ezekiel Back MD MTDD
[2017-07-12] MEDS: QUEtiapine 200 mg XR Tab PO SCH (22:04)
[2017-07-13] MEDS: Levothyroxine 75 MCG TAB PO SCH (06:29)
[2017-07-13] MEDS: Pantoprazole 40 mg EC Tab PO SCH (06:29)
[2017-07-13 07:59] VITALS: TEMP 98.5; O2SAT 96
[2017-07-13 10:31] VITALS: BP 123/63; PULSE 73
--- NOTE | 2017-07-14 17:36 | DS ---
FINAL PROGRESS NOTE AND DISCHARGE SUMMARY SUBJECTIVE: The patient is seen lying in bed. The patient has been off one-to-one observation in the last 24 hours. The patient has not been agitated. The patient has no documented behavioral disturbances as far the nurses note. The patient is seen lying in the bed. The patient was made to sit up without assistance. PHYSICAL EXAMINATION: VITAL SIGNS: T-max, afebrile; heart rate of 74, 78 and 82; respirations of 18 to 22; blood pressure of 132/74 and 128/80, and O2 saturation is mild to high 90s. HEENT: Head examination is normocephalic and atraumatic. Pinkish pale conjunctivae. Anicteric sclerae. No oropharyngeal lesion. SKIN: Examination shows positive vitiligo. NECK: No neck rigidity. CHEST: Kyphosis. LUNGS: Shows no rales, crackles or wheezing. CARDIOVASCULAR: S1 and S2. Regular rhythm. ABDOMEN: Obese and protuberant. Positive bowel sounds. GENITALIA: Male. RECTAL: Examination is deferred. EXTREMITIES: Shows no pitting edema. No calf tenderness and no Homans sign. NEUROLOGIC: The patient is alert, awake, and responsive. Follows command. Moves upper and lower extremity without assistance. MUSCULOSKELETAL: Shows an elevated body mass index. DIAGNOSTIC STUDIES: None from today. Diagnostics from yesterday is reviewed. The patient's case was discussed with Dr. Gautam, regarding discharge clearance. The patient has been cleared by psychiatrist to discharge back to [facility]. The patient was seen by hematology and oncology. The patient was also seen by gastroenterology, both have recommended, the patient needs to followup outpatient via medical center for further treatment of his anemia, hepatitis B and cirrhosis. FINAL IMPRESSION AND PLAN AND DISCHARGE DIAGNOSES: 1. Acute exacerbation of bipolar disorder with behavioral disturbances and episodes of agitation. 2. Hyperammonemia. 3. History of hepatitis C and hepatic cirrhosis. 4. Pancytopenia. 5. Morbid obesity. 6. History of hypertension. 7. Bradycardia. 8. Leukopenia, anemia, and thrombocytopenia. 9. Status post treatment. 10. Vitiligo. 11. hepatic encephalopathy (resoled versus resolving). 1. Acute exacerbation of bipolar disorder with behavioral disorder. 2. Behavioral disorders with agitation and poor compliance (resolved). 3. Status post Code Travis. 4. Pancytopenia secondary to hepatitis C and hepatic cirrhosis and hypersplenism. 5. History of hepatitis C. 6. History of vitiligo. 7. History of hypertension. 8. History of hypothyroidism. 9. History of poor compliance. 10. History of bipolar disorder. 11. History of psychiatric illnesses. 12. Pancytopenia. 13. Transamination. 14. Hyperammonemia. 15. Hyperthyroidism. 1. Status post Code Travis. 2. Bipolar disorder. 3. Behavioral disorder with unsuccessful attempt to elope. 4. Possible hepatic encephalopathy. 5. Hyperammonemia. 6. Hepatitis C with hepatic cirrhosis. 7. Pancytopenia. 8. Transaminitis. 9. Morbid obesity. 10. History of hypertension. 11. Episodic transient hypotension. 12. Status post bradycardia. 13. History of hepatitis C. 1. Questionable possible hepatic encephalopathy with altered mental status with behavioral disorder. 2. Hyperammonemia. 3. Pancytopenia with severe neutropenia and leukopenia with ANC below 1000. 4. History of hepatitis C. 5. Bipolar disorder. 6. Bradycardia. 7. Hypotension. 8. Elevated alpha-fetoprotein. 9. Obesity. 10. Vitiligo. 11. Behavioral disorder. 1. Hepatic encephalopathy with hyperammonemia with behavioral disorder. 2. Hepatic cirrhosis. 3. History of hepatitis C. 4. Pancytopenia with mild lymphocytosis and granulocytopenia. 5. Mild coagulopathy. 6. Status post acute kidney injury. 7. Hyperammonemia. 8. Transaminitis. 9. Hepatic steatosis. 10. Hepatic encephalopathy. 11. History of bipolar disorder. 12. History of hypothyroidism. 13. History of hypertension. 14. Neuropathy. 15. Dyslipidemia. 16. Transient hypotension. 17. Obesity with elevated body mass index of 40. 1. Acute exacerbation of bipolar disorder with behavioral disorder. 2. Behavioral disorders with agitation and poor compliance (resolved). 3. Status post Code Travis. 4. Pancytopenia secondary to hepatitis C and hepatic cirrhosis and hypersplenism. 5. History of hepatitis C. 6. History of vitiligo. 7. History of hypertension. 8. History of hypothyroidism. 9. History of poor compliance. 10. History of bipolar disorder. 11. History of psychiatric illnesses. 12. Pancytopenia. 13. Transamination. 14. Hyperammonemia. 15. Hyperthyroidism. 1. Status post Code Travis. 2. Bipolar disorder. 3. Behavioral disorder with unsuccessful attempt to elope. 4. Possible hepatic encephalopathy. 5. Hyperammonemia. 6. Hepatitis C with hepatic cirrhosis. 7. Pancytopenia. 8. Transaminitis. 9. Morbid obesity. 10. History of hypertension. 11. Episodic transient hypotension. 12. Status post bradycardia. 13. History of hepatitis C. 1. Questionable possible hepatic encephalopathy with altered mental status with behavioral disorder. 2. Hyperammonemia. 3. Pancytopenia with severe neutropenia and leukopenia with ANC below 1000. 4. History of hepatitis C. 5. Bipolar disorder. 6. Bradycardia. 7. Hypotension. 8. Elevated alpha-fetoprotein. 9. Obesity. 10. Vitiligo. 11. Behavioral disorder. 1. Hepatic encephalopathy with hyperammonemia with behavioral disorder. 2. Hepatic cirrhosis. 3. History of hepatitis C. 4. Pancytopenia with mild lymphocytosis and granulocytopenia. 5. Mild coagulopathy. 6. Status post acute kidney injury. 7. Hyperammonemia. 8. Transaminitis. 9. Hepatic steatosis. 10. Hepatic encephalopathy. 11. History of bipolar disorder. 12. History of hypothyroidism. 13. History of hypertension. 14. Neuropathy. 15. Dyslipidemia. 16. Transient hypotension. 17. Obesity with elevated body mass index of 40. 1. Status post Code Travis. 2. Bipolar disorder. 3. Behavioral disorder with unsuccessful attempt to elope. 4. Possible hepatic encephalopathy. 5. Hyperammonemia. 6. Hepatitis C with hepatic cirrhosis. 7. Pancytopenia. 8. Transaminitis. 9. Morbid obesity. 10. History of hypertension. 11. Episodic transient hypotension. 12. Status post bradycardia. 13. History of hepatitis C. 1. Questionable possible hepatic encephalopathy with altered mental status with behavioral disorder. 2. Hyperammonemia. 3. Pancytopenia with severe neutropenia and leukopenia with ANC below 1000. 4. History of hepatitis C. 5. Bipolar disorder. 6. Bradycardia. 7. Hypotension. 8. Elevated alpha-fetoprotein. 9. Obesity. 10. Vitiligo. 11. Behavioral disorder. 1. Hepatic encephalopathy with hyperammonemia with behavioral disorder. 2. Hepatic cirrhosis. 3. History of hepatitis C. 4. Pancytopenia with mild lymphocytosis and granulocytopenia. 5. Mild coagulopathy. 6. Status post acute kidney injury. 7. Hyperammonemia. 8. Transaminitis. 9. Hepatic steatosis. 10. Hepatic encephalopathy. 11. History of bipolar disorder. 12. History of hypothyroidism. 13. History of hypertension. 14. Neuropathy. 15. Dyslipidemia. 16. Transient hypotension. 17. Obesity with elevated body mass index of 40. PLAN: The patient has been cleared for discharge. The patient would be discharged to [facility], with outpatient followup at [facility] for Hematology, Gastroenterology and Psychiatry. MEDICATIONS: The patient's discharge medications are as per updated ambulatory orders, which has been completed and revised, which will be sent with the patient to the shelter. Time spent in the entire discharge process more than 45 minutes. Dictated and electronically signed note. Signing off Ezekiel Back MD. Ezekiel Back MD Job # [id number] MTDD
== END 2017-07-13 18:46 | DRG 442 ==
LOC: ED 15:11 → ERH 18:54 → 3RSO 21:18
PROVIDERS: ADMIT Internal Medicine; ATTEND Internal Medicine
DX: K72.90 Hepatic failure, unspecified without coma (principal); D61.818 Other pancytopenia; D68.4 Acquired coagulation factor deficiency; F05 Delirium due to known physiological condition; Z68.41 Body mass index [BMI] 40.0-44.9, adult; K74.60 Unspecified cirrhosis of liver; B19.20 Unspecified viral hepatitis C without hepatic coma; F31.9 Bipolar disorder, unspecified; I10 Essential (primary) hypertension; R00.1 Bradycardia, unspecified; L80 Vitiligo; E66.01 Morbid (severe) obesity due to excess calories; E78.5 Hyperlipidemia, unspecified; E03.9 Hypothyroidism, unspecified; K76.0 Fatty (change of) liver, not elsewhere classified; G62.9 Polyneuropathy, unspecified; F91.9 Conduct disorder, unspecified; D73.1 Hypersplenism; Z88.0 Allergy status to penicillin; Z79.82 Long term (current) use of aspirin

== ENCOUNTER 2017-12-27 12:16 | Inpatient (IN) | payer OTHER ==
[2017-12-27 12:16] VITALS: BMI 40.1
[2017-12-27 13:56] LABS: URINE BILIRUBIN NEGATIVE (NEGATIVE); URINE BLOOD NEGATIVE (NEGATIVE); URINE GLUCOSE (UA) NEGATIVE (NEGATIVE); URINE LEUKOCYTE ESTERASE SMALL Leu/uL (NEGATIVE); URINE NITRATE POSITIVE (NEGATIVE); URINE PROTEIN NEGATIVE mg/dL (<30 mg/dL); URINE UROBILINOGEN 0.2 E.U./dL (<1 E.U./dL)
[2017-12-27 14:02] LABS: URINE APPEARANCE CLEAR (CLEAR); URINE COLOR YELLOW (YELLOW)
[2017-12-27 14:09] LABS: URINE BACTERIA MOD (NEG); URINE RBC 0 - 2 /hpf (0-2); URINE WBC 20 - 25 /hpf (0-6)
[2017-12-27 14:19] LABS: BARBITURATES, UR NEGATIVE (NEGATIVE); BENZODIAZEPINES, UR NEGATIVE (NEGATIVE); OPIATES, UR NEGATIVE (NEGATIVE); PHENCYCLIDINE, UR NEGATIVE (NEGATIVE)
[2017-12-27 14:24] LABS: BASO # 0.02 K/mm3 (0.0-2.0); BASO % 0.6 % (0.0-3.0); EOS % 0.9 % (1.5-5.0); GRAN # 1.84 (1.4-6.5); GRAN % 52.5 % (50.0-68.0); HEMOGLOBIN 11.4 g/dL (14.0-18.0); LYMPH # 1.1 (1.2-3.4); LYMPH % 30.6 % (22.0-35.0); MEAN CELL VOLUME 98.4 fl (80.0-105.0); MEAN CORPUSCULAR HEMOGLOBIN 35.4 pg (25.0-35.0); MEAN PLATELET VOLUME 12.7 fl (7.0-11.0); MONO # 0.5 (0.1-0.6); MONO % 15.4 % (1.0-6.0); RBC 3.22 10^6/uL (3.5-6.1); RED CELL DISTRIBUTION WIDTH 12.4 % (11.5-14.5); WHITE BLOOD COUNT 3.5 10^3/ul (4.5-11.0)
--- NOTE | 2017-12-27 14:30 | RAD ---
HISTORY: pes eval COMPARISON: Chest radiograph dated 07/08/2017. FINDINGS: LUNGS: No active pulmonary disease. PLEURA: No significant pleural effusion identified, no pneumothorax apparent. CARDIOVASCULAR: Atherosclerotic aortic calcifications. Cardiomediastinal silhouette stably prominent. OSSEOUS STRUCTURES: Unchanged. VISUALIZED UPPER ABDOMEN: Normal. OTHER FINDINGS: None. IMPRESSION: No active disease.
[2017-12-27 14:46] LABS: ACETAMINOPHEN < 10.0 ug/ml (10.0-20.0); SALICYLATE < 1 mg/dL (2.0-20.0)
[2017-12-27 14:49] LABS: ALB/GLOB RATIO 0.8 (1.1-1.8); ALBUMIN 3.6 g/dL (3.0-4.8); CALCIUM 9.3 mg/dL (8.4-10.5)
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
[2017-12-27] MEDS: Sodium Chloride 0.45% 1,000 ML IV SCH (20:49)
[2017-12-27] MEDS: QUEtiapine 200 mg XR Tab PO SCH (21:03)
--- NOTE | 2017-12-27 23:29 | CARD ---
APPROVED REPORT EKG Measurement Heart [id number] <Conclusion> Normal sinus rhythm Prolonged QT Abnormal ECG
[2017-12-28] MEDS ORDERED: Influenza Vaccine 60 mcg/0.5 mL SYR (4YR UP) IM ONE (00:18)
[2017-12-28] MEDS ORDERED: Pneumococcal 23-Valent Vaccine IM ONE (00:18)
[2017-12-28] MEDS: Levothyroxine 75 MCG TAB PO SCH (05:36)
[2017-12-28] MEDS: Pantoprazole 40 mg EC Tab PO SCH (05:36)
[2017-12-28 07:14] LABS: HEMOGLOBIN 10.9 g/dL (14.0-18.0); MEAN CELL VOLUME 98.4 fl (80.0-105.0); MEAN CORPUSCULAR HEMOGLOBIN 34.9 pg (25.0-35.0); MEAN CORPUSCULAR HGB CONC 35.5 g/dl (31.0-37.0); MEAN PLATELET VOLUME 12.3 fl (7.0-11.0); PLATELET COUNT 51 10^3/uL (120.0-450.0); RBC 3.12 10^6/uL (3.5-6.1); RED CELL DISTRIBUTION WIDTH 12.6 % (11.5-14.5)
[2017-12-28 07:17] LABS: WHITE BLOOD COUNT 2.5 10^3/ul (4.5-11.0)
[2017-12-28 07:23] LABS: ALB/GLOB RATIO 0.8 (1.1-1.8); ALBUMIN 3.2 g/dL (3.0-4.8); CALCIUM 9.1 mg/dL (8.4-10.5)
[2017-12-28 07:27] LABS: BASO % 0.4 % (0.0-3.0); GRAN # 1.04 (1.4-6.5); GRAN % 41.4 % (50.0-68.0); LYMPH # 0.9 (1.2-3.4); LYMPH % 34.7 % (22.0-35.0); MONO # 0.5 (0.1-0.6); MONO % 21.5 % (1.0-6.0)
[2017-12-28 07:28] LABS: BASO # 0.01 K/mm3 (0.0-2.0); EOS # 0.1 (0.0-0.7)
[2017-12-28 08:07] LABS: ATYPICAL LYMPHOCYTE 2 % (0.0-0.0); LYMPHOCYTE 35 % (22.0-35.0); NEUTROPHIL 50 % (50.0-70.0)
[2017-12-28 08:08] LABS: ANISOCYTOSIS 1+; EOSINOPHIL 2 % (0.0-3.0); HYPOCHROMIA 1+; MONOCYTE 11 % (1.0-6.0); PLATELET ESTIMATE LOW (NORMAL); POLYCHROMASIA SLIGHT
--- NOTE | 2017-12-28 14:16 | CP.PCM.CON ---
<Erin Fish - Last Filed: 12/28/17 14:17> History of Present Illness - History of Present Illness History of Present Illness: GI Fellow PGY4 Consult Note This is a 62yM with pmhx of HTN, HLD, Hypothyroidismm Hep C presenting from [place] for agitation and combative behavior. Pt is a poor historian and some hx was gathered from EMR. Pt reports he was diagnosed with Hep C many years ago in service and was never treated, pt denies any episodes of confusion even though he was admitted 07/04 for HE. Pt denies ascites, EGD or colonoscopy. Pt did have an Abd US 07/04 neg for HCC and AFP was 13. At that time pt was discharged on po lactulose and rifaxamin. Pt reports he has 1 BM daily and confirms taking lactulose daily. At time of evaluation pt was not confused but a poor historian. ROS: A 12pt ROS was negative except as above. Pmhx: As stated in HPI PsHX: denies SHx: denies tobacco, etoh or drugs FHx: denies colon ca Past Patient History - Infectious Disease Hx of Infectious Diseases: None - Past Social History Smoking Status: Light Smoker < 10 Cigarettes Daily - CARDIAC Hx Cardiac Disorders: Yes Hx Hypertension: Yes - PULMONARY Hx Pneumonia: Yes Hx Sleep Apnea: Yes - NEUROLOGICAL HX Cerebrovascular Accident: No Hx Seizures: No - HEMATOLOGICAL/ONCOLOGICAL Hx Cancer: No - MUSCULOSKELETAL/RHEUMATOLOGICAL Hx Arthritis: Yes Hx Falls: Yes - GENITOURINARY/GYNECOLOGICAL Hx Sexually Transmitted Disorders: No - PSYCHIATRIC Hx Bipolar Disorder: Yes Hx Substance Use: Yes (former IVDU (heroine)) Meds Allergies/Adverse Reactions: Allergies Allergy/AdvReac Type Severity Reaction Status Date / Time clonidine Allergy RASH Verified 12/27/17 12:32 Penicillins Allergy RASH Verified 12/27/17 12:32 codone Allergy RASH Uncoded 12/27/17 12:32 - Medications Medications: Current Medications Aspirin (Ecotrin) 81 mg PO DAILY [facility] Last Admin: 12/28/17 10:57 Dose: 81 mg Atorvastatin Calcium (Lipitor) 20 mg PO DAILY [facility] Last Admin: 12/28/17 10:57 Dose: 20 mg Ciprofloxacin (Cipro) 500 mg PO BID [facility] PRN Reason: Protocol Last Admin: 12/28/17 10:56 Dose: 500 mg Furosemide (Lasix) 40 mg PO DAILY [facility] Last Admin: 12/28/17 10:57 Dose: 40 mg Gabapentin (Neurontin) 100 mg PO BID [facility] PRN Reason: Protocol Last Admin: 12/28/17 11:00 Dose: 100 mg Gabapentin (Neurontin) 100 mg PO HS [facility] PRN Reason: Protocol Last Admin: 12/27/17 21:03 Dose: 100 mg Sodium Chloride (Sodium Chloride 0.45%) 1,000 mls @ 40 mls/hr IV .Q24H [facility] Last Admin: 12/27/17 20:49 Dose: 40 mls/hr Lactulose (Enulose) 20 gm PO QID [facility] Levothyroxine Sodium (Synthroid) 75 mcg PO 0600 [facility] Last Admin: 12/28/17 05:36 Dose: 75 mcg Losartan Potassium (Cozaar) 50 mg PO DAILY [facility] Last Admin: 12/28/17 10:56 Dose: 50 mg Metoprolol Tartrate (Lopressor) 12.5 mg PO BID [facility] Last Admin: 12/28/17 10:57 Dose: 12.5 mg Pantoprazole Sodium (Protonix Ec Tab) 40 mg PO 0600 [facility] Last Admin: 12/28/17 05:36 Dose: 40 mg Quetiapine Fumarate (Seroquel) 50 mg PO 0800,1400,1800 [facility] PRN Reason: Protocol Last Admin: 12/28/17 13:13 Dose: 50 mg Quetiapine Fumarate (Seroquel Xr) 400 mg PO HS [facility] PRN Reason: Protocol Last Admin: 12/27/17 21:03 Dose: 400 mg Rifaximin (Xifaxan) 550 mg PO BID [facility] PRN Reason: Protocol Last Admin: 12/28/17 11:00 Dose: 550 mg Physical Exam - Constitutional Appears: Non-toxic, No Acute Distress - Head Exam Head Exam: ATRAUMATIC, NORMAL INSPECTION, NORMOCEPHALIC - Eye Exam Eye Exam: EOMI, Normal appearance, PERRL Pupil Exam: PERRL - ENT Exam ENT Exam: Mucous Membranes Moist - Respiratory Exam Respiratory Exam: Clear to Auscultation Bilateral, NORMAL BREATHING PATTERN - Cardiovascular Exam Cardiovascular Exam: REGULAR RHYTHM, RRR - GI/Abdominal Exam GI & Abdominal Exam: Normal Bowel Sounds, Soft. absent: Distended, Guarding, Organomegaly, Tenderness - Extremities Exam Extremities exam: Positive for: normal inspection, pedal edema - Neurological Exam Neurological exam: Alert, Oriented x3 - Psychiatric Exam Psychiatric exam: Normal Affect, Normal Mood - Skin Skin Exam: Dry, Intact, Normal Color, Warm Results - Vital Signs Recent Vital Signs: Last Vital Signs Temp 97.8 F 12/28/17 08:14 Pulse 72 12/28/17 10:57 Resp 20 12/28/17 08:14 BP 111/64 12/28/17 10:57 Pulse Ox 98 12/28/17 08:14 - Labs Result Diagrams: 12/28/17 07:00 12/28/17 07:00 Labs: Laboratory Results - last 24 hr 12/28/17 12/28/17 12/28/17 07:00 07:00 07:00 WBC 2.5 L* D RBC 3.12 L Hgb 10.9 L Hct 30.7 L MCV 98.4 MCH 34.9 MCHC 35.5 RDW 12.6 Plt Count 51 L MPV 12.3 H Gran % 41.4 L Lymph % (Auto) 34.7 [place] % (Auto) 21.5 H Eos % (Auto) 2.0 Baso % (Auto) 0.4 Gran # 1.04 L Lymph # (Auto) 0.9 L [place] # (Auto) 0.5 Eos # (Auto) 0.1 Baso # (Auto) 0.01 Neutrophils % (Manual) 50 Lymphocytes % (Manual) 35 Atypical Lymphs % 2 H Monocytes % (Manual) 11 H Eosinophils % (Manual) 2 Platelet Evaluation Low Polychromasia Slight Hypochromasia 1+ Anisocytosis (manual) 1+ Sodium 140 Potassium 4.0 Chloride 108 H Carbon Dioxide 23 Anion Gap 14 BUN 18 Creatinine 1.6 H Est GFR ( Amer) 53 Est GFR (Non-Af Amer) 44 Random Glucose 102 Calcium 9.1 Total Bilirubin 0.9 AST 148 H ALT 103 H Alkaline Phosphatase 105 Ammonia 72 H Total Protein 7.2 Albumin 3.2 Globulin 4.0 Albumin/Globulin Ratio 0.8 L Assessment & Plan - Assessment and Plan (Free Text) Assessment: This is a 62yM presenting from [place] for agitation and being combative. 1. Hepatic encephalopathy 2. Hep C 3. Pancytopenia 4. Elevated LFTs 5. UTI Plan: -Continue supportive care for AMS which is improving -Continue lactulose daily for 2-3 BM daily -Continue Rifaxamin -Pt will need CT liver to evaluate for cirrhosis after renal function improves, monitor Cr, will order Abd US -Pt will need EGD for variceal screening, possible Saturday -Hep C abx positive 07/04 -LFTs likely elevated from Hep C infection, will check autoimmune serologies for completion, no hx of etoh -Continue IV abx for UTI -Will continue to follow closely <London Vaughn MD - Last Filed: 12/28/17 17:49> Meds - Medications Medications: Current Medications Aspirin (Ecotrin) 81 mg PO DAILY [facility] Last Admin: 12/28/17 10:57 Dose: 81 mg Atorvastatin Calcium (Lipitor) 20 mg PO DAILY [facility] Last Admin: 12/28/17 10:57 Dose: 20 mg Ciprofloxacin (Cipro) 500 mg PO BID [facility] PRN Reason: Protocol Last Admin: 12/28/17 17:09 Dose: 500 mg Furosemide (Lasix) 40 mg PO DAILY [facility] Last Admin: 12/28/17 10:57 Dose: 40 mg Gabapentin (Neurontin) 100 mg PO BID [facility] PRN Reason: Protocol Last Admin: 12/28/17 17:11 Dose: 100 mg Gabapentin (Neurontin) 100 mg PO HS [facility] PRN Reason: Protocol Last Admin: 12/27/17 21:03 Dose: 100 mg Sodium Chloride (Sodium Chloride 0.45%) 1,000 mls @ 40 mls/hr IV .Q24H [facility] Last Admin: 12/27/17 20:49 Dose: 40 mls/hr Lactulose (Enulose) 20 gm PO QID [facility] Last Admin: 12/28/17 17:10 Dose: 20 gm Levothyroxine Sodium (Synthroid) 75 mcg PO 0600 [facility] Last Admin: 12/28/17 05:36 Dose: 75 mcg Losartan Potassium (Cozaar) 50 mg PO DAILY [facility] Last Admin: 12/28/17 10:56 Dose: 50 mg Metoprolol Tartrate (Lopressor) 12.5 mg PO BID [facility] Last Admin: 12/28/17 17:10 Dose: 12.5 mg Pantoprazole Sodium (Protonix Ec Tab) 40 mg PO 0600 [facility] Last Admin: 12/28/17 05:36 Dose: 40 mg Quetiapine Fumarate (Seroquel) 50 mg PO 0800,1400,1800 [facility] PRN Reason: Protocol Last Admin: 12/28/17 17:11 Dose: 50 mg Quetiapine Fumarate (Seroquel Xr) 400 mg PO HS [facility] PRN Reason: Protocol Last Admin: 12/27/17 21:03 Dose: 400 mg Rifaximin (Xifaxan) 550 mg PO BID [facility] PRN Reason: Protocol Last Admin: 12/28/17 17:12 Dose: 550 mg Results - Vital Signs Recent Vital Signs: Last Vital Signs Temp 98.7 F 12/28/17 16:00 Pulse 76 12/28/17 17:10 Resp 16 12/28/17 16:00 BP 112/64 12/28/17 17:10 Pulse Ox 98 12/28/17 16:00 - Labs Result Diagrams: 12/28/17 07:00 12/28/17 07:00 Labs: Laboratory Results - last 24 hr 12/28/17 12/28/17 12/28/17 07:00 07:00 07:00 WBC 2.5 L* D RBC 3.12 L Hgb 10.9 L Hct 30.7 L MCV 98.4 MCH 34.9 MCHC 35.5 RDW 12.6 Plt Count 51 L MPV 12.3 H Gran % 41.4 L Lymph % (Auto) 34.7 [place] % (Auto) 21.5 H Eos % (Auto) 2.0 Baso % (Auto) 0.4 Gran # 1.04 L Lymph # (Auto) 0.9 L [place] # (Auto) 0.5 Eos # (Auto) 0.1 Baso # (Auto) 0.01 Neutrophils % (Manual) 50 Lymphocytes % (Manual) 35 Atypical Lymphs % 2 H Monocytes % (Manual) 11 H Eosinophils % (Manual) 2 Platelet Evaluation Low Polychromasia Slight Hypochromasia 1+ Anisocytosis (manual) 1+ Sodium 140 Potassium 4.0 Chloride 108 H Carbon Dioxide 23 Anion Gap 14 BUN 18 Creatinine 1.6 H Est GFR ( Amer) 53 Est GFR (Non-Af Amer) 44 Random Glucose 102 Calcium 9.1 Iron TIBC % Saturation Total Bilirubin 0.9 AST 148 H ALT 103 H Alkaline Phosphatase 105 Ammonia 72 H Total Protein 7.2 Albumin 3.2 Globulin 4.0 Albumin/Globulin Ratio 0.8 L IgG 12/28/17 12/28/17 07:00 07:00 WBC RBC Hgb Hct MCV MCH MCHC RDW Plt Count MPV Gran % Lymph % (Auto) [place] % (Auto) Eos % (Auto) Baso % (Auto) Gran # Lymph # (Auto) [place] # (Auto) Eos # (Auto) Baso # (Auto) Neutrophils % (Manual) Lymphocytes % (Manual) Atypical Lymphs % Monocytes % (Manual) Eosinophils % (Manual) Platelet Evaluation Polychromasia Hypochromasia Anisocytosis (manual) Sodium Potassium Chloride Carbon Dioxide Anion Gap BUN Creatinine Est GFR ( Amer) Est GFR (Non-Af Amer) Random Glucose Calcium Iron 168 TIBC 214 L % Saturation 78 H Total Bilirubin AST ALT Alkaline Phosphatase Ammonia Total Protein Albumin Globulin Albumin/Globulin Ratio IgG 2054.9 H Attending/Attestation - Attestation I have personally seen and examined this patient.: Yes I have fully participated in the care of the patient.: Yes I have reviewed all pertinent clinical information: Yes Notes (Text): 12/28/17 17:46 Patient seen with fellow on rounds this morning. This is a 62 yr old M with HCv cirrhosis presenting from [place] for agitation and being combative in setting of hepatic encephalopathy which is resolving. He is oriented to self, place and time. Will continue lactulose and rifaximin - titrate to 2 BM/day. Will need triple phase CT scan to rule out HCC. Schedule EGD for variceal screening, possible Saturday. Will send autoiimune serologies. Low salt diet. Continue IV abx for UTI. Will continue to follow closely
[2017-12-28 14:56] LABS: IRON 168 ug/dL (45-180)
[2017-12-28 15:06] LABS: % IRON SATURATION 78 % (20-55); TOTAL IRON BINDING CAPACITY 214 ug/dL (261-462)
--- NOTE | 2017-12-28 15:12 | CP.PCM.CON ---
History of Present Illness - History of Present Illness History of Present Illness: RENAL CONSULT Reason for consult: ARF HPI: 62yM with pmhx of HTN, HLD, cirrhosis from hep c that presented w/ agitation and confusion yesterday. He was admitted for hepatic encephalopathy and has been treated w/ lactulose and rifaxamin w/ improvements. He denies any hx of kidney disease. He mentions problems w/ his spine. He otherwise denies any NSAID use. He denies any fever or chills. He denies any abdominal pain. he is being followed by GI as well. ROS: a full detailed ROS is negative except as in my hpi pmh: htn, hyperlipidemia, cirrhosis, hepc SHx: denies active tobacco, etoh or drugs FHx: no esrd meds: as below labs and imaging reviewed. vs as below gen: nad sclera: anicteric op: clear neck: supple cv: +s1+s2 lungs: cta b/l abd: soft ext: no edema neuro: a+ox3 psych: nml affect skin: no rash imp: arf / hepatic encephalopathy/ cirrhosis / anemia / hypertension plan: JUANY is improving - will hold lasix and cozaar for now. getting gentle hydration and po intake is good f/u GI hgb relatively stable, continue to monitor bp well controlled Past Patient History - Infectious Disease Hx of Infectious Diseases: None - Past Social History Smoking Status: Light Smoker < 10 Cigarettes Daily - CARDIAC Hx Cardiac Disorders: Yes Hx Hypertension: Yes - PULMONARY Hx Pneumonia: Yes Hx Sleep Apnea: Yes - NEUROLOGICAL HX Cerebrovascular Accident: No Hx Seizures: No - HEMATOLOGICAL/ONCOLOGICAL Hx Cancer: No - MUSCULOSKELETAL/RHEUMATOLOGICAL Hx Arthritis: Yes Hx Falls: Yes - GENITOURINARY/GYNECOLOGICAL Hx Sexually Transmitted Disorders: No - PSYCHIATRIC Hx Bipolar Disorder: Yes Hx Substance Use: Yes (former IVDU (heroine)) Meds Allergies/Adverse Reactions: Allergies Allergy/AdvReac Type Severity Reaction Status Date / Time clonidine Allergy RASH Verified 12/27/17 12:32 Penicillins Allergy RASH Verified 12/27/17 12:32 codone Allergy RASH Uncoded 12/27/17 12:32 - Medications Medications: Current Medications Aspirin (Ecotrin) 81 mg PO DAILY [facility] Last Admin: 12/28/17 10:57 Dose: 81 mg Atorvastatin Calcium (Lipitor) 20 mg PO DAILY [facility] Last Admin: 12/28/17 10:57 Dose: 20 mg Ciprofloxacin (Cipro) 500 mg PO BID [facility] PRN Reason: Protocol Last Admin: 12/28/17 10:56 Dose: 500 mg Furosemide (Lasix) 40 mg PO DAILY [facility] Last Admin: 12/28/17 10:57 Dose: 40 mg Gabapentin (Neurontin) 100 mg PO BID [facility] PRN Reason: Protocol Last Admin: 12/28/17 11:00 Dose: 100 mg Gabapentin (Neurontin) 100 mg PO HS [facility] PRN Reason: Protocol Last Admin: 12/27/17 21:03 Dose: 100 mg Sodium Chloride (Sodium Chloride 0.45%) 1,000 mls @ 40 mls/hr IV .Q24H [facility] Last Admin: 12/27/17 20:49 Dose: 40 mls/hr Lactulose (Enulose) 20 gm PO QID [facility] Levothyroxine Sodium (Synthroid) 75 mcg PO 0600 [facility] Last Admin: 12/28/17 05:36 Dose: 75 mcg Losartan Potassium (Cozaar) 50 mg PO DAILY [facility] Last Admin: 12/28/17 10:56 Dose: 50 mg Metoprolol Tartrate (Lopressor) 12.5 mg PO BID [facility] Last Admin: 12/28/17 10:57 Dose: 12.5 mg Pantoprazole Sodium (Protonix Ec Tab) 40 mg PO 0600 [facility] Last Admin: 12/28/17 05:36 Dose: 40 mg Quetiapine Fumarate (Seroquel) 50 mg PO 0800,1400,1800 [facility] PRN Reason: Protocol Last Admin: 12/28/17 13:13 Dose: 50 mg Quetiapine Fumarate (Seroquel Xr) 400 mg PO HS [facility] PRN Reason: Protocol Last Admin: 12/27/17 21:03 Dose: 400 mg Rifaximin (Xifaxan) 550 mg PO BID [facility] PRN Reason: Protocol Last Admin: 12/28/17 11:00 Dose: 550 mg Results - Vital Signs Recent Vital Signs: Last Vital Signs Temp 97.8 F 12/28/17 08:14 Pulse 72 12/28/17 10:57 Resp 20 12/28/17 08:14 BP 111/64 12/28/17 10:57 Pulse Ox 98 12/28/17 08:14 - Labs Result Diagrams: 12/28/17 07:00 12/28/17 07:00 Labs: Laboratory Results - last 24 hr 12/28/17 12/28/17 12/28/17 07:00 07:00 07:00 WBC 2.5 L* D RBC 3.12 L Hgb 10.9 L Hct 30.7 L MCV 98.4 MCH 34.9 MCHC 35.5 RDW 12.6 Plt Count 51 L MPV 12.3 H Gran % 41.4 L Lymph % (Auto) 34.7 [place] % (Auto) 21.5 H Eos % (Auto) 2.0 Baso % (Auto) 0.4 Gran # 1.04 L Lymph # (Auto) 0.9 L [place] # (Auto) 0.5 Eos # (Auto) 0.1 Baso # (Auto) 0.01 Neutrophils % (Manual) 50 Lymphocytes % (Manual) 35 Atypical Lymphs % 2 H Monocytes % (Manual) 11 H Eosinophils % (Manual) 2 Platelet Evaluation Low Polychromasia Slight Hypochromasia 1+ Anisocytosis (manual) 1+ Sodium 140 Potassium 4.0 Chloride 108 H Carbon Dioxide 23 Anion Gap 14 BUN 18 Creatinine 1.6 H Est GFR ( Amer) 53 Est GFR (Non-Af Amer) 44 Random Glucose 102 Calcium 9.1 Iron TIBC % Saturation Total Bilirubin 0.9 AST 148 H ALT 103 H Alkaline Phosphatase 105 Ammonia 72 H Total Protein 7.2 Albumin 3.2 Globulin 4.0 Albumin/Globulin Ratio 0.8 L 12/28/17 07:00 WBC RBC Hgb Hct MCV MCH MCHC RDW Plt Count MPV Gran % Lymph % (Auto) [place] % (Auto) Eos % (Auto) Baso % (Auto) Gran # Lymph # (Auto) [place] # (Auto) Eos # (Auto) Baso # (Auto) Neutrophils % (Manual) Lymphocytes % (Manual) Atypical Lymphs % Monocytes % (Manual) Eosinophils % (Manual) Platelet Evaluation Polychromasia Hypochromasia Anisocytosis (manual) Sodium Potassium Chloride Carbon Dioxide Anion Gap BUN Creatinine Est GFR ( Amer) Est GFR (Non-Af Amer) Random Glucose Calcium Iron 168 TIBC 214 L % Saturation 78 H Total Bilirubin AST ALT Alkaline Phosphatase Ammonia Total Protein Albumin Globulin Albumin/Globulin Ratio
--- NOTE | 2017-12-28 19:03 | PN ---
DATE: SUBJECTIVE: I saw him resting comfortably in bed. He is very alert. He is calm. He is talking very well. He is in good spirits. He ate his breakfast. I think the lactulose is starting to work. He is on Cipro for urinary tract infection. He has Cozaar, Ecotrin, and Enulose for his high ammonia level. He has got Lasix, Lipitor, Lopressor, Neurontin, Protonix, Seroquel, IV fluid, Synthroid and Xifaxan. He is comfortable at this time. PHYSICAL EXAMINATION VITAL SIGNS: Temperature 97.8, pulse 72, blood pressure 111/64, respiratory rate 20, O2 sat 90% on room air. HEENT: Head is atraumatic, normocephalic. HEART: Regular rate. LUNGS: Clear to auscultation. ABDOMEN: Soft, nontender. Positive bowel sounds. Obese. EXTREMITIES: No edema. LABORATORY DATA: He has a 2.5 white count, a little bit low, 10.9 hemoglobin, 30.7 hematocrit with a 51 platelets that dropped. He has a 140 sodium, potassium is 4, BUN 18, creatinine 1.6, GFR is 44. Sugar is 102, calcium is 9.1, total bilirubin is 0.9. AST is 148, ALT is 103, alkaline phosphatase 105. His ammonia level dropped to 72, on its way down. Total protein 7.2. Urine has moderate bacteria for UTI. He is being seen by multiple physicians. There are consults for Psychiatry, Renal, and GI I will continue with the treatment I have him on, check his labs tomorrow, encouraged him to get out of bed to chair and eventually go to Psychiatry for Edgar Cruz DO [email or web address]
[2017-12-28] MEDS: QUEtiapine 200 mg XR Tab PO SCH (21:49)
[2017-12-29] MEDS: Pantoprazole 40 mg EC Tab PO SCH (06:20)
[2017-12-29] MEDS: Levothyroxine 75 MCG TAB PO SCH (06:20)
--- NOTE | 2017-12-29 06:29 | CP.PCM.PN ---
<Erin Fish - Last Filed: 12/29/17 12:29> Subjective - Date & Time of Evaluation Date of Evaluation: 12/29/17 Time of Evaluation: 08:30 - Subjective Subjective: GI Fellow PGY 4 Progress Note Pt seen and evaluated at bedside, pt doing well with no GI complaints. Pt had 2 BM yesterday on lactulose, per pt had 4-5BM. Pt not combative or agitated. ROS: A 12pt ROS was negative except a above. Objective - Vital Signs/Intake and Output Vital Signs (last 24 hours): Temp Pulse Resp BP Pulse Ox 98.7 F 76 16 112/64 98 12/28/17 16:00 12/28/17 17:10 12/28/17 16:00 12/28/17 17:10 12/28/17 16:00 Intake and Output: 12/28/17 12/29/17 18:59 06:59 Intake Total 240 Balance 240 - Medications Medications: Current Medications Aspirin (Ecotrin) 81 mg PO DAILY [facility] Last Admin: 12/28/17 10:57 Dose: 81 mg Atorvastatin Calcium (Lipitor) 20 mg PO DAILY [facility] Last Admin: 12/28/17 10:57 Dose: 20 mg Ciprofloxacin (Cipro) 500 mg PO BID [facility] PRN Reason: Protocol Last Admin: 12/28/17 17:09 Dose: 500 mg Furosemide (Lasix) 40 mg PO DAILY [facility] Last Admin: 12/28/17 10:57 Dose: 40 mg Gabapentin (Neurontin) 100 mg PO BID [facility] PRN Reason: Protocol Last Admin: 12/28/17 17:11 Dose: 100 mg Gabapentin (Neurontin) 100 mg PO HS [facility] PRN Reason: Protocol Last Admin: 12/28/17 21:49 Dose: 100 mg Sodium Chloride (Sodium Chloride 0.45%) 1,000 mls @ 40 mls/hr IV .Q24H [facility] Last Admin: 12/27/17 20:49 Dose: 40 mls/hr Lactulose (Enulose) 20 gm PO QID [facility] Last Admin: 12/28/17 21:49 Dose: 20 gm Levothyroxine Sodium (Synthroid) 75 mcg PO 0600 [facility] Last Admin: 12/29/17 06:20 Dose: 75 mcg Losartan Potassium (Cozaar) 50 mg PO DAILY [facility] Last Admin: 12/28/17 10:56 Dose: 50 mg Metoprolol Tartrate (Lopressor) 12.5 mg PO BID [facility] Last Admin: 12/28/17 17:10 Dose: 12.5 mg Pantoprazole Sodium (Protonix Ec Tab) 40 mg PO 0600 [facility] Last Admin: 12/29/17 06:20 Dose: 40 mg Quetiapine Fumarate (Seroquel) 50 mg PO 0800,1400,1800 [facility] PRN Reason: Protocol Last Admin: 12/28/17 17:11 Dose: 50 mg Quetiapine Fumarate (Seroquel Xr) 400 mg PO HS [facility] PRN Reason: Protocol Last Admin: 12/28/17 21:49 Dose: 400 mg Rifaximin (Xifaxan) 550 mg PO BID [facility] PRN Reason: Protocol Last Admin: 12/28/17 17:12 Dose: 550 mg - Labs Labs: 12/28/17 07:00 12/28/17 07:00 - Constitutional Appears: Non-toxic, No Acute Distress - Head Exam Head Exam: ATRAUMATIC, NORMAL INSPECTION, NORMOCEPHALIC - Eye Exam Eye Exam: EOMI, Normal appearance, PERRL Pupil Exam: PERRL - ENT Exam ENT Exam: Mucous Membranes Moist - Neck Exam Neck Exam: Full ROM - Respiratory Exam Respiratory Exam: Clear to Ausculation Bilateral, NORMAL BREATHING PATTERN - Cardiovascular Exam Cardiovascular Exam: REGULAR RHYTHM - GI/Abdominal Exam GI & Abdominal Exam: Distended, Soft, Normal Bowel Sounds - Extremities Exam Extremities Exam: Full ROM, Pedal Edema - Neurological Exam Neurological Exam: Alert, Awake - Psychiatric Exam Psychiatric exam: Normal Affect, Normal Mood - Skin Skin Exam: Dry, Intact, Normal Color, Warm Assessment and Plan - Assessment and Plan (Free Text) Assessment: This is a 62yM presenting [place] for agitation and being combative. 1. Hepatic encephalopathy 2. Hep C 3. Pancytopenia 4. Elevated LFTs 5. UTI 6. JUANY Plan: -Continue supportive care for AMS which is improving -Continue lactulose daily for 2-3 BM daily -Continue Rifaxamin -Pt will need CT liver to evaluate for cirrhosis after renal function improves, monitor Cr, Abd US pending -Pt will need EGD for variceal screening tomorrow -NPO after midnight -Hep C ab positive 07/04 -LFTs likely elevated from Hep C infection, autoimmune serologies pending -Continue IV abx for UTI -IVF hydration, renal follow -Consent signed and in chart for EGD -Will continue to follow closely <London Vaughn MD - Last Filed: 12/29/17 16:47> Objective - Vital Signs/Intake and Output Vital Signs (last 24 hours): Temp Pulse Resp BP Pulse Ox 98.3 F 66 16 113/61 98 12/29/17 07:53 12/29/17 10:42 12/29/17 07:53 12/29/17 10:42 12/29/17 07:53 Intake and Output: 12/29/17 12/29/17 06:59 18:59 Intake Total 240 Balance 240 - Medications Medications: Current Medications Aspirin (Ecotrin) 81 mg PO DAILY [facility] Last Admin: 12/29/17 10:42 Dose: 81 mg Atorvastatin Calcium (Lipitor) 20 mg PO DAILY [facility] Last Admin: 12/29/17 10:42 Dose: 20 mg Ciprofloxacin (Cipro) 500 mg PO BID [facility] PRN Reason: Protocol Last Admin: 12/29/17 10:42 Dose: 500 mg Furosemide (Lasix) 40 mg PO DAILY [facility] Last Admin: 12/28/17 10:57 Dose: 40 mg Gabapentin (Neurontin) 100 mg PO BID [facility] PRN Reason: Protocol Last Admin: 12/29/17 10:44 Dose: 100 mg Gabapentin (Neurontin) 100 mg PO HS [facility] PRN Reason: Protocol Last Admin: 12/28/17 21:49 Dose: 100 mg Sodium Chloride (Sodium Chloride 0.9%) 1,000 mls @ 75 mls/hr IV .[id number] [facility] Last Admin: 12/29/17 13:35 Dose: 75 mls/hr Lactulose (Enulose) 20 gm PO QID [facility] Last Admin: 12/29/17 13:34 Dose: 20 gm Levothyroxine Sodium (Synthroid) 75 mcg PO 0600 [facility] Last Admin: 12/29/17 06:20 Dose: 75 mcg Losartan Potassium (Cozaar) 50 mg PO DAILY [facility] Last Admin: 12/28/17 10:56 Dose: 50 mg Metoprolol Tartrate (Lopressor) 12.5 mg PO BID [facility] Last Admin: 12/29/17 10:42 Dose: 12.5 mg Pantoprazole Sodium (Protonix Ec Tab) 40 mg PO 0600 [facility] Last Admin: 12/29/17 06:20 Dose: 40 mg Quetiapine Fumarate (Seroquel) 50 mg PO 0800,1400,1800 [facility] PRN Reason: Protocol Last Admin: 12/29/17 13:34 Dose: 50 mg Quetiapine Fumarate (Seroquel Xr) 400 mg PO HS [facility] PRN Reason: Protocol Last Admin: 12/28/17 21:49 Dose: 400 mg Rifaximin (Xifaxan) 550 mg PO BID [facility] PRN Reason: Protocol Last Admin: 12/29/17 10:45 Dose: 550 mg - Labs Labs: 12/29/17 07:00 12/29/17 07:00 PT 14.9 SECONDS (9.4-12.5) H 12/29/17 07:00 INR 1.29 (0.93-1.08) H 12/29/17 07:00 Attending/Attestation - Attestation I have personally seen and examined this patient.: Yes I have fully participated in the care of the patient.: Yes I have reviewed all pertinent clinical information, including history, physical exam and plan: Yes Notes (Text): 12/29/17 16:43 Patient seen with fellow on rounds this morning. This is a 62 yr old M with HCv cirrhosis presenting from [place] for agitation and being combative in setting of hepatic encephalopathy which is resolving. He is oriented to self, place and time. Will continue lactulose and rifaximin - titrate to 2 BM/day. Will need triple phase CT scan to rule out HCC once renal function improves. Schedule EGD for variceal screening tomorrow am. Will send autoiimune serologies. Low salt diet. Continue IV abx for UTI. Will continue to follow closely. NPO past midnight. Consent in chart
[2017-12-29 07:50] LABS: HEMOGLOBIN 9.9 g/dL (14.0-18.0); MEAN CELL VOLUME 99.6 fl (80.0-105.0); MEAN CORPUSCULAR HEMOGLOBIN 34.9 pg (25.0-35.0); MEAN PLATELET VOLUME 12.6 fl (7.0-11.0); RBC 2.84 10^6/uL (3.5-6.1); RED CELL DISTRIBUTION WIDTH 12.6 % (11.5-14.5)
[2017-12-29 08:00] LABS: WHITE BLOOD COUNT 2.7 10^3/ul (4.5-11.0)
[2017-12-29 08:07] LABS: INR 1.29 (0.93-1.08); PROTHROMBIN TIME 14.9 SECONDS (9.4-12.5)
[2017-12-29] MEDS: Sodium Chloride 0.45% 1,000 ML IV SCH (10:31)
[2017-12-29 11:39] LABS: ALB/GLOB RATIO 0.8 (1.1-1.8); CALCIUM 8.6 mg/dL (8.4-10.5)
--- NOTE | 2017-12-29 12:46 | CP.PCM.PN ---
Subjective - Date & Time of Evaluation Date of Evaluation: 12/29/17 Time of Evaluation: 12:44 - Subjective Subjective: RENAL FOLLOW UP NOTE S: seen and examined vs as below gen: nad sclera: anicteric op: clear neck: supple cv: +s1+s2 lungs: cta b/l abd: soft ext: no edema neuro: a+ox3 psych: nml affect skin: no rash imp: arf / hepatic encephalopathy/ cirrhosis / anemia / hypertension plan: JUANY is improving - will hold lasix and cozaar (received last dose yesterday), will swithc fluids today to isotonic saline will check urine lytes and cr f/u GI hgb relatively stable, continue to monitor bp well controlled Objective - Vital Signs/Intake and Output Vital Signs (last 24 hours): Temp Pulse Resp BP Pulse Ox 98.3 F 66 16 113/61 98 12/29/17 07:53 12/29/17 10:42 12/29/17 07:53 12/29/17 10:42 12/29/17 07:53 Intake and Output: 12/29/17 12/29/17 06:59 18:59 Intake Total 240 Balance 240 - Medications Medications: Current Medications Aspirin (Ecotrin) 81 mg PO DAILY [facility] Last Admin: 12/29/17 10:42 Dose: 81 mg Atorvastatin Calcium (Lipitor) 20 mg PO DAILY [facility] Last Admin: 12/29/17 10:42 Dose: 20 mg Ciprofloxacin (Cipro) 500 mg PO BID [facility] PRN Reason: Protocol Last Admin: 12/29/17 10:42 Dose: 500 mg Furosemide (Lasix) 40 mg PO DAILY [facility] Last Admin: 12/28/17 10:57 Dose: 40 mg Gabapentin (Neurontin) 100 mg PO BID [facility] PRN Reason: Protocol Last Admin: 12/29/17 10:44 Dose: 100 mg Gabapentin (Neurontin) 100 mg PO HS [facility] PRN Reason: Protocol Last Admin: 12/28/17 21:49 Dose: 100 mg Sodium Chloride (Sodium Chloride 0.45%) 1,000 mls @ 40 mls/hr IV .Q24H [facility] Last Admin: 12/29/17 10:31 Dose: 40 mls/hr Lactulose (Enulose) 20 gm PO QID [facility] Last Admin: 12/29/17 10:42 Dose: 20 gm Levothyroxine Sodium (Synthroid) 75 mcg PO 0600 [facility] Last Admin: 12/29/17 06:20 Dose: 75 mcg Losartan Potassium (Cozaar) 50 mg PO DAILY [facility] Last Admin: 12/28/17 10:56 Dose: 50 mg Metoprolol Tartrate (Lopressor) 12.5 mg PO BID [facility] Last Admin: 12/29/17 10:42 Dose: 12.5 mg Pantoprazole Sodium (Protonix Ec Tab) 40 mg PO 0600 [facility] Last Admin: 12/29/17 06:20 Dose: 40 mg Quetiapine Fumarate (Seroquel) 50 mg PO 0800,1400,1800 [facility] PRN Reason: Protocol Last Admin: 12/29/17 08:01 Dose: 50 mg Quetiapine Fumarate (Seroquel Xr) 400 mg PO HS [facility] PRN Reason: Protocol Last Admin: 12/28/17 21:49 Dose: 400 mg Rifaximin (Xifaxan) 550 mg PO BID [facility] PRN Reason: Protocol Last Admin: 12/29/17 10:45 Dose: 550 mg - Labs Labs: 12/29/17 07:00 12/29/17 07:00 PT 14.9 SECONDS (9.4-12.5) H 12/29/17 07:00 INR 1.29 (0.93-1.08) H 12/29/17 07:00
[2017-12-29] MEDS: Sodium Chloride 0.9% 1,000 ML IV SCH (13:35)
[2017-12-29 14:25] LABS: CREATININE,RANDOM URINE 57 mg/dL
--- NOTE | 2017-12-29 15:34 | US ---
HISTORY: History of hepatitis-C Presenting with elevated ammonia levels and hepatic encephalopathy COMPARISON: None. TECHNIQUE: Sonographic evaluation of the abdomen. FINDINGS: LIVER: Measures 12.5 x 14.7 cm. Nonvisualization of flow within the portal vein. Fatty infiltration manifest ultrasonographically as increased echogenicity of the liver parenchyma. No mass. No intrahepatic bile duct dilatation. GALLBLADDER: Unremarkable. No gallstones. COMMON BILE DUCT: Measures 6.0 mm. No stones. No dilatation. PANCREAS: Obscured by overlying bowel gas. Non diagnostic assessment of the pancreas RIGHT KIDNEY: Measures 4.6 x 10.2cm. Normal echogenicity. No calculus, mass, or hydronephrosis. LEFT KIDNEY: Measures 5.9 x 10.1cm. Normal echogenicity. No calculus, mass, or hydronephrosis. SPLEEN: Splenomegaly. Orthogonal measurements 7.5 x 14.6 cm AORTA: No aneurysmal dilatation. IVC: Unremarkable. OTHER FINDINGS: None. IMPRESSION: Findings consistent with hepatocellular disease without focal mass, discrete abnormality. Nonvisualization of flow within portal veins. Limitations of the current examination: Nonvisualization of the pancreas
[2017-12-29] MEDS: QUEtiapine 200 mg XR Tab PO SCH (21:19)
--- NOTE | 2017-12-29 22:08 | PN ---
DATE: SUBJECTIVE: I saw him resting comfortably in his room. He is eating well, slept well, better spirits. Overall, he is doing well. I understand that GI is going to do an endoscopy on Saturday. He will be n.p.o. tonight. He has definitely improved from when he came in with his mentation. PHYSICAL EXAMINATION: VITAL SIGNS: He has a 98.3 temperature, 62 pulse, 105/56 blood pressure, 16 respiratory rate, 98% O2 sat on room air. HEENT: Head is atraumatic, normocephalic. HEART: Regular rate. LUNGS: Clear to auscultation. ABDOMEN: Soft. EXTREMITIES: No edema. GENERAL: He is fairly comfortable. LABORATORY DATA: He has a white count of 2.7, which is low; 9.9 hemoglobin; 28.3 hematocrit with a 56 platelets. I will call in Hematology. His INR is 1.29. He has 140 sodium, potassium is 4, BUN 18, creatinine 1.6, sugars 102, calcium is 9.1. Iron is 168, total binding capacity 218, saturation is 78%, ferritin is 1200. Ammonia level went from 72 back up to 99. GI increased his lactulose to 4 times a day. He is being seen by GI, Psych, Renal. Hematology was called in already. There are no notes from Psych or Hematology/oncology. Continue aggressive treatment and care. Endoscopy tomorrow. Increase his lactulose, check his ammonia level tomorrow. Edgar Cruz DO
[2017-12-30] MEDS: Pantoprazole 40 mg EC Tab PO SCH (06:15)
[2017-12-30] MEDS: Sodium Chloride 0.9% 1,000 ML IV SCH (06:15)
[2017-12-30] MEDS: Levothyroxine 75 MCG TAB PO SCH (06:15)
--- NOTE | 2017-12-30 08:12 | HP ---
HISTORY OF PRESENT ILLNESS: I was called down to the emergency room to evaluate Jose E. They originally referred him straight to the Psychiatric floor, but he had some changes in some of his labs. So I will go through the medical side first and then go to the Psychiatric floor. He was brought in by [facility] because he has been showing aggressive behavior, confusion, being combative, throwing things and he has done this before in the past when his ammonia level was high and apparently his ammonia level is high again here. He has a history of cirrhosis of the liver, bipolar disorder, hypertension, CHF, reflux, hypothyroidism. He is comfortable at this time, lying in bed, in a gurney in the isolation room. He is not as combative. He is peaceful to talk with at this time. He tells me he is comfortable and is doing better. He said he has had the ammonia level elevated in the past, which he takes lactulose for. He has had hepatic encephalopathy before with bipolar disorder. ALLERGIES: HE HAS ALLERGIES TO CLONIDINE, PENICILLIN, AND CODEINE. MEDICATIONS: He takes Synthroid, Seroquel, Protonix, Neurontin, Lopressor, Lipitor for high cholesterol, Lasix, Enulose, Ecotrin, and Cozaar. PHYSICAL EXAMINATION: VITAL SIGNS: He has 98 temperature, 80 pulse, 120/76 blood pressure, 17 respiratory rate, 99% O2 sat on room air. HEENT: His head is atraumatic and normocephalic. He has leukoderma of the skin. His extraocular muscles are intact. Pupils are equal and reactive to light and accommodation. Throat is moist. NECK: Supple. Thyroid midline. HEART: Regular rate. Normal S1 and S2. LUNGS: Decreased breath sounds, but clear to auscultation bilaterally. ABDOMEN: Soft, nontender. Positive bowel sounds. No palpable masses. No guarding. No rebound or CVA tenderness. He had aggressive behavior when he first came in. Right now, he is calm. EXTREMITIES: Have no edema. NEUROLOGIC: He is alert and oriented x3 at this time. No anxiety, no depression, no sweating. No numbness or tingling. LABORATORY DATA: He had multiple tests. He had 138 sodium, potassium 4.8, BUN is 20, creatinine 2.0. I am going to put him on IV fluids. GFR is 34, sugar is 101, calcium is 9.3, total bili is 1, AST is 164, ALT is 114. Alkaline phosphatase is 119, ammonia level is baudilio-high at 130. I will call in GI. Total protein is 8.1. Urine is positive for urinary tract infection with moderate bacteria. I will put him on Cipro. He had a chest x-ray, which showed no active disease. ASSESSMENT AND PLAN: He is in the hospital for combative behavior, hepatic encephalopathy, renal insufficiency, high liver enzymes, urinary tract infection. He has got a bipolar history. He had consults with GI, Renal, and Psychiatry. We will give him lactulose q. 8 hours around the clock and IV fluids. We will put him back on his medications. Hopefully, he will improve. We will see how the labs are tomorrow, and then we will get him better medically or go to Psych floor. Edgar Cruz DO
[2017-12-30] MEDS ORDERED: Propofol 10 mg/ml Inj (20 ML) ONE (08:37)
--- NOTE | 2017-12-30 09:07 | PN ---
DATE: SUBJECTIVE: I see him resting comfortably in bed. He is feeling well. No complaints. Slept well. He is being seen by GI, Renal. He is supposed to be seen by Psychiatry and Hematology/Oncology. He is on Cipro; Cozaar, which is on hold; Ecotrin; Enulose; Lasix, which is on hold; Lipitor; Lopressor; Neurontin; Protonix; Seroquel; IV fluids; levothyroxine and Rifampin. PHYSICAL EXAMINATION: VITAL SIGNS: He has a 97.8 temp, 71 pulse, 111/67 blood pressure, 22 respiratory rate, 90% O2 sat on room air. GENERAL: He is comfortable in bed without any complaints. He is going to go for EGD this morning. HEENT: His head is atraumatic, normocephalic. HEART: Regular rate. LUNGS: Clear to auscultation. ABDOMEN: Soft, obese, nontender. EXTREMITIES: No edema. LABORATORY DATA: He has a 2.7 white count that was yesterday, 9.9 hemoglobin, 56 platelets. I called Hematology. 140 sodium, potassium 4.1, BUN 70, creatinine 1.8, GFR is 38. Renal is on the case. Total bili is 0.7, AST is 148, ALT is 96, alk phos is 98, ammonia is 99 yesterday. Waiting for labs from this morning to come back. ASSESSMENT AND PLAN: He is on lactulose 20 g 4 times a day. I am not sure what to make of Psychiatry, if they will take him up to Psychiatry or not and wait and see what Hematology/Oncology thinks about his low platelets and low white count. Continue to watch him closely. GI evaluation this morning. Edgar Cruz DO
--- NOTE | 2017-12-30 09:43 | CP.PCM.PCO ---
Physician Communication Note - Physician Communication Note Physician Communication Note: pt was at endoscopy today, d/w , will f/ u tomorrow.
--- NOTE | 2017-12-30 17:45 | CP.PCM.CON ---
History of Present Illness - History of Present Illness History of Present Illness: 62 year old male with PMH of HTN, dyslipidemia, Hypothyroidism, hepatitis C was [facility] to [facility] because of combative behavior. Septic work up was done which is now showing bacteria in the urine. The patient is currently not combative but not very cooperative and therefore full ROS is unobtainable. There is no note of fever, no convulsions, no loss of consciousness, no diarrhea, no vomiting. The patient has an apparent allergy to penicillin (rash). Infectious diseases consult is requested to further evaluate and manage. Review of Systems - Review of Systems All systems: reviewed and no additional remarkable complaints except (as per HPI ) Past Patient History - Infectious Disease Hx of Infectious Diseases: None - Past Social History Smoking Status: Light Smoker < 10 Cigarettes Daily - CARDIAC Hx Cardiac Disorders: Yes Hx Hypertension: Yes - PULMONARY Hx Pneumonia: Yes Hx Sleep Apnea: Yes - NEUROLOGICAL HX Cerebrovascular Accident: No Hx Seizures: No - HEMATOLOGICAL/ONCOLOGICAL Hx Cancer: No - MUSCULOSKELETAL/RHEUMATOLOGICAL Hx Arthritis: Yes Hx Falls: Yes - GENITOURINARY/GYNECOLOGICAL Hx Sexually Transmitted Disorders: No - PSYCHIATRIC Hx Bipolar Disorder: Yes Hx Substance Use: Yes (former IVDU (heroine)) - SURGICAL HISTORY Hx Surgeries: No Meds Allergies/Adverse Reactions: Allergies Allergy/AdvReac Type Severity Reaction Status Date / Time clonidine Allergy RASH Verified 12/27/17 12:32 Penicillins Allergy RASH Verified 12/27/17 12:32 codone Allergy RASH Uncoded 12/27/17 12:32 - Medications Medications: Current Medications Aspirin (Ecotrin) 81 mg PO DAILY [facility] Last Admin: 12/30/17 10:48 Dose: 81 mg Atorvastatin Calcium (Lipitor) 20 mg PO DAILY [facility] Last Admin: 12/30/17 10:48 Dose: 20 mg Ciprofloxacin (Cipro) 500 mg PO BID [facility] PRN Reason: Protocol Last Admin: 12/30/17 10:48 Dose: 500 mg Furosemide (Lasix) 40 mg PO DAILY [facility] Last Admin: 12/28/17 10:57 Dose: 40 mg Gabapentin (Neurontin) 100 mg PO BID [facility] PRN Reason: Protocol Last Admin: 12/30/17 10:49 Dose: 100 mg Gabapentin (Neurontin) 100 mg PO HS [facility] PRN Reason: Protocol Last Admin: 12/29/17 21:19 Dose: 100 mg Sodium Chloride (Sodium Chloride 0.9%) 1,000 mls @ 75 mls/hr IV .[id number] [facility] Last Admin: 12/30/17 06:15 Dose: 75 mls/hr Meropenem 250 mg/ Sodium (Chloride) 100 mls @ 100 mls/hr IVPB Q24H [facility] PRN Reason: Protocol Stop: 01/06/18 12:01 Lactulose (Enulose) 20 gm PO QID [facility] Last Admin: 12/30/17 10:48 Dose: 20 gm Levothyroxine Sodium (Synthroid) 75 mcg PO 0600 [facility] Last Admin: 12/30/17 06:15 Dose: 75 mcg Losartan Potassium (Cozaar) 50 mg PO DAILY [facility] Last Admin: 12/28/17 10:56 Dose: 50 mg Metoprolol Tartrate (Lopressor) 12.5 mg PO BID [facility] Last Admin: 12/30/17 10:48 Dose: 12.5 mg Pantoprazole Sodium (Protonix Ec Tab) 40 mg PO 0600 [facility] Last Admin: 12/30/17 06:15 Dose: 40 mg Quetiapine Fumarate (Seroquel) 50 mg PO 0800,1400,1800 [facility] PRN Reason: Protocol Last Admin: 12/30/17 10:48 Dose: 50 mg Quetiapine Fumarate (Seroquel Xr) 400 mg PO HS [facility] PRN Reason: Protocol Last Admin: 12/29/17 21:19 Dose: 400 mg Rifaximin (Xifaxan) 550 mg PO BID [facility] PRN Reason: Protocol Last Admin: 12/30/17 10:49 Dose: 550 mg Physical Exam - Constitutional Appears: Non-toxic, Chronically Ill - Head Exam Head Exam: NORMAL INSPECTION - Neck Exam Neck exam: Negative for: Meningismus - Respiratory Exam Respiratory Exam: Decreased Breath Sounds - Cardiovascular Exam Cardiovascular Exam: +S1, +S2 - GI/Abdominal Exam GI & Abdominal Exam: Soft. absent: Tenderness Results - Vital Signs Recent Vital Signs: Last Vital Signs Temp 97.8 F 12/30/17 09:41 Pulse 70 12/30/17 09:41 Resp 22 12/30/17 09:41 BP 146/69 12/30/17 09:41 Pulse Ox 99 12/30/17 09:41 - Labs Result Diagrams: 12/29/17 07:00 12/29/17 07:00 Labs: Laboratory Results - last 24 hr 12/29/17 12/29/17 07:00 13:40 Potassium 4.1 Ur Random Creatinine 57 Ur Random Sodium 39 Assessment & Plan - Assessment and Plan (Free Text) Plan: Assessment Consider UTI with E. coli HTN dyslipidemia Hypothyroidism hepatitis C Plan Started patient on Merrem and will observe to see if he develops rash with it will monitor clinically
--- NOTE | 2017-12-30 19:14 | CP.PCM.PN ---
Subjective - Date & Time of Evaluation Date of Evaluation: 12/30/17 Time of Evaluation: 11:00 - Subjective Subjective: Follow up Nephrology Consultation Note Assessment: Stable Acute Kidney Injury (N17.9) improving Pancytopenia Possible UTI Hep C with cirrhosis and hepatic encephalopathy Plan No acute need for renal replacement therapy at this time. Hypertension control with meds as ordered. Patient not on ACEI/ARB due to recent JUANY Monitor Input/Output, daily weights and renal function with basic metabolic panel UA against GN as the cause of JUANY continue with IVF ID consult for UTI requested Dose meds/antibiotics for reduced GFR. Avoid fleets enema/magnesium based laxatives. Avoid nephrotoxins/NSAIDs/ iodinated contrast (unless needed emergently) Glycemic control Further work up for as per primary team Thanks for allowing me to participate in care of your patient. Will follow patient with you. Please call if any Qs Dr Conrado Emmanuel Office: [phone] Subjective: Noted events overnight. Patients feels okay. Denies chest pain, palpitation, shortness of breath, leg swelling. All other negative Physical Examination: General Appearance: Comfortable, in no acute respiratory distress, co-operative . Vitals reviewed and noted as below Head; Atraumatic, normocephalic ENT: no ulcers no thrush. Tongue is midline. Oropharynx: no rash or ulcers. EYES: Pupils are equal, round and reactive to light accommodation. Eye muscles and extraocular movement intact. Sclera is anicteric. Neck; supple no lymphadenopathy, no thyromegaly or bruit Lungs: Normal respiratory rate/effort. Breath sounds bilateral equal and clear Heart: Normal rate. s1s2 normal. No rub or gallop. Extremities: no edema. No varicose veins Neurological: Patient is alert, awake and oriented to person, place and time. No focal deficit. Strength bilateral appropriate and equal Skin: Warm and dry. Normal turgor. No rash. Palpitation: Normal elasticity for age. has vitiligo Abdomen: Abdomen is soft. Bowel sounds +. There is no abdominal tenderness, no guarding/rigidity no organomegaly Psych: normal insight and normal affect/mood MSK: no joint tenderness or swelling. Digits and nails normal, no deformity : kidney or bladder not palpable Labs/imaging reviewed. Past medical history, past surgical history, family history, social history, allergy reviewed and noted as below Family hx: no hx of CKD. Rest non-contributory Renal sono WNL Objective - Vital Signs/Intake and Output Vital Signs (last 24 hours): Temp Pulse Resp BP Pulse Ox 97.8 F 70 22 146/69 99 12/30/17 09:41 12/30/17 09:41 12/30/17 09:41 12/30/17 09:41 12/30/17 09:41 Intake and Output: 12/30/17 12/31/17 18:59 06:59 Intake Total 240 Balance 240 - Medications Medications: Current Medications Aspirin (Ecotrin) 81 mg PO DAILY [facility] Last Admin: 12/30/17 10:48 Dose: 81 mg Atorvastatin Calcium (Lipitor) 20 mg PO DAILY [facility] Last Admin: 12/30/17 10:48 Dose: 20 mg Ciprofloxacin (Cipro) 500 mg PO BID [facility] PRN Reason: Protocol Last Admin: 12/30/17 17:43 Dose: 500 mg Furosemide (Lasix) 40 mg PO DAILY [facility] Last Admin: 12/28/17 10:57 Dose: 40 mg Gabapentin (Neurontin) 100 mg PO BID [facility] PRN Reason: Protocol Last Admin: 12/30/17 17:42 Dose: 100 mg Gabapentin (Neurontin) 100 mg PO HS [facility] PRN Reason: Protocol Last Admin: 12/29/17 21:19 Dose: 100 mg Sodium Chloride (Sodium Chloride 0.9%) 1,000 mls @ 75 mls/hr IV .[id number] [facility] Last Admin: 12/30/17 06:15 Dose: 75 mls/hr Meropenem 250 mg/ Sodium (Chloride) 100 mls @ 100 mls/hr IVPB Q24H [facility] PRN Reason: Protocol Stop: 01/06/18 12:01 Last Admin: 12/30/17 17:50 Dose: 100 mls/hr Lactulose (Enulose) 20 gm PO QID [facility] Last Admin: 12/30/17 17:42 Dose: 20 gm Levothyroxine Sodium (Synthroid) 75 mcg PO 0600 [facility] Last Admin: 12/30/17 06:15 Dose: 75 mcg Losartan Potassium (Cozaar) 50 mg PO DAILY [facility] Last Admin: 12/28/17 10:56 Dose: 50 mg Metoprolol Tartrate (Lopressor) 12.5 mg PO BID [facility] Last Admin: 12/30/17 17:42 Dose: 12.5 mg Pantoprazole Sodium (Protonix Ec Tab) 40 mg PO 0600 [facility] Last Admin: 12/30/17 06:15 Dose: 40 mg Quetiapine Fumarate (Seroquel) 50 mg PO 0800,1400,1800 [facility] PRN Reason: Protocol Last Admin: 12/30/17 17:42 Dose: 50 mg Quetiapine Fumarate (Seroquel Xr) 400 mg PO HS [facility] PRN Reason: Protocol Last Admin: 12/29/17 21:19 Dose: 400 mg Rifaximin (Xifaxan) 550 mg PO BID [facility] PRN Reason: Protocol Last Admin: 12/30/17 17:42 Dose: 550 mg - Labs Labs: 12/29/17 07:00 12/29/17 07:00 PT 14.9 SECONDS (9.4-12.5) H 12/29/17 07:00 INR 1.29 (0.93-1.08) H 12/29/17 07:00
[2017-12-30] MEDS: QUEtiapine 200 mg XR Tab PO SCH (22:24)
[2017-12-31] MEDS: Levothyroxine 75 MCG TAB PO SCH (06:11)
[2017-12-31] MEDS: Pantoprazole 40 mg EC Tab PO SCH (06:11)
[2017-12-31 10:26] LABS: CERULOPLASMIN 26 mg/dL (18-36)
[2017-12-31 11:10] LABS: ALB/GLOB RATIO 0.8 (1.1-1.8); ALBUMIN 2.9 g/dL (3.0-4.8); CALCIUM 8.3 mg/dL (8.4-10.5)
[2017-12-31 11:12] LABS: HEMOGLOBIN 9.8 g/dL (14.0-18.0); MEAN CELL VOLUME 101.4 fl (80.0-105.0); MEAN CORPUSCULAR HEMOGLOBIN 34.8 pg (25.0-35.0); MEAN CORPUSCULAR HGB CONC 34.3 g/dl (31.0-37.0); MEAN PLATELET VOLUME 12.5 fl (7.0-11.0); RBC 2.82 10^6/uL (3.5-6.1); RED CELL DISTRIBUTION WIDTH 12.8 % (11.5-14.5)
[2017-12-31 11:30] LABS: EOS # 0.1 (0.0-0.7); GRAN # 0.93 (1.4-6.5); LYMPH # 0.7 (1.2-3.4); LYMPH % 33.8 % (22.0-35.0); MONO # 0.3 (0.1-0.6); MONO % 15.2 % (1.0-6.0)
--- NOTE | 2017-12-31 12:50 | CP.PCM.PN ---
Subjective - Date & Time of Evaluation Date of Evaluation: 12/31/17 Time of Evaluation: 12:49 - Subjective Subjective: Follow up Nephrology Consultation Note Assessment: Stable Acute Kidney Injury (N17.9) improving Pancytopenia Possible UTI Hep C with cirrhosis and hepatic encephalopathy Plan No acute need for renal replacement therapy at this time. No ACEI/ARB due to recent JUANY. hold losartan. Monitor Input/Output, daily weights and renal function with basic metabolic panel UA against GN as the cause of JUANY d/c IVF ID input for UTI appreciated Dose meds/antibiotics for reduced GFR. Avoid fleets enema/magnesium based laxatives. Avoid nephrotoxins/NSAIDs/ iodinated contrast (unless needed emergently) Glycemic control Further work up for as per primary team Thanks for allowing me to participate in care of your patient. Will follow patient with you. Please call if any Qs Dr Conrado Emmanuel Office: [phone] Subjective: Noted events overnight. Patients feels okay. Denies chest pain, palpitation, shortness of breath, leg swelling. All other negative Physical Examination: General Appearance: Comfortable, in no acute respiratory distress, co-operative . Vitals reviewed and noted as below Head; Atraumatic, normocephalic ENT: no ulcers no thrush. Tongue is midline. Oropharynx: no rash or ulcers. EYES: Pupils are equal, round and reactive to light accommodation. Eye muscles and extraocular movement intact. Sclera is anicteric. Neck; supple no lymphadenopathy, no thyromegaly or bruit Lungs: Normal respiratory rate/effort. Breath sounds bilateral equal and clear Heart: Normal rate. s1s2 normal. No rub or gallop. Extremities: no edema. No varicose veins Neurological: Patient is alert, awake and oriented to person, place and time. No focal deficit. Strength bilateral appropriate and equal Skin: Warm and dry. Normal turgor. No rash. Palpitation: Normal elasticity for age. has vitiligo Abdomen: Abdomen is soft. Bowel sounds +. There is no abdominal tenderness, no guarding/rigidity no organomegaly Psych: normal insight and normal affect/mood MSK: no joint tenderness or swelling. Digits and nails normal, no deformity : kidney or bladder not palpable Labs/imaging reviewed. Past medical history, past surgical history, family history, social history, allergy reviewed and noted as below Family hx: no hx of CKD. Rest non-contributory Renal sono WNL Objective - Vital Signs/Intake and Output Vital Signs (last 24 hours): Temp Pulse Resp BP Pulse Ox 97.7 F 68 18 106/59 L 100 12/31/17 07:30 12/31/17 07:30 12/31/17 07:30 12/31/17 09:32 12/31/17 07:30 Intake and Output: 12/31/17 12/31/17 06:59 18:59 Intake Total 120 Balance 120 - Medications Medications: Current Medications Aspirin (Ecotrin) 81 mg PO DAILY [facility] Last Admin: 12/31/17 09:31 Dose: 81 mg Atorvastatin Calcium (Lipitor) 20 mg PO DAILY [facility] Last Admin: 12/31/17 09:32 Dose: 20 mg Furosemide (Lasix) 40 mg PO DAILY [facility] Last Admin: 12/31/17 09:31 Dose: 40 mg Gabapentin (Neurontin) 100 mg PO BID [facility] PRN Reason: Protocol Last Admin: 12/31/17 09:32 Dose: 100 mg Gabapentin (Neurontin) 100 mg PO HS [facility] PRN Reason: Protocol Last Admin: 12/30/17 22:25 Dose: 100 mg Meropenem 250 mg/ Sodium (Chloride) 100 mls @ 100 mls/hr IVPB Q24H [facility] PRN Reason: Protocol Stop: 01/06/18 12:01 Last Admin: 12/30/17 17:50 Dose: 100 mls/hr Lactulose (Enulose) 20 gm PO QID [facility] Last Admin: 12/31/17 09:30 Dose: 20 gm Levothyroxine Sodium (Synthroid) 75 mcg PO 0600 [facility] Last Admin: 12/31/17 06:11 Dose: 75 mcg Metoprolol Tartrate (Lopressor) 12.5 mg PO BID [facility] Last Admin: 12/31/17 09:32 Dose: 12.5 mg Pantoprazole Sodium (Protonix Ec Tab) 40 mg PO 0600 [facility] Last Admin: 12/31/17 06:11 Dose: 40 mg Quetiapine Fumarate (Seroquel) 50 mg PO 0800,1400,1800 [facility] PRN Reason: Protocol Last Admin: 12/31/17 09:30 Dose: 50 mg Quetiapine Fumarate (Seroquel Xr) 400 mg PO HS [facility] PRN Reason: Protocol Last Admin: 12/30/17 22:24 Dose: 400 mg Rifaximin (Xifaxan) 550 mg PO BID [facility] PRN Reason: Protocol Last Admin: 12/31/17 09:31 Dose: 550 mg - Labs Labs: 12/31/17 10:34 12/31/17 10:34 PT 14.9 SECONDS (9.4-12.5) H 12/29/17 07:00 INR 1.29 (0.93-1.08) H 12/29/17 07:00
--- NOTE | 2017-12-31 14:43 | PN ---
DATE: SUBJECTIVE: I saw him resting comfortably in bed this morning. He slept well. He is eating well. He had an endoscope yesterday, waiting for the results from GI. PHYSICAL EXAMINATION: GENERAL: He is in no acute distress. VITAL SIGNS: He has a 97.7 temperature, 68 pulse, 106/59 blood pressure, 18 respiratory rate, 100% O2 sat on room air. HEENT: Head is atraumatic, normocephalic. Throat is moist. NECK: Supple. HEART: Regular rate. LUNGS: Clear to auscultation. ABDOMEN: Soft, obese, nontender. EXTREMITIES: No edema. MEDICATIONS: He is currently on Cipro for UTI. Cozaar, Ecotrin, and Enulose for hepatic encephalopathy. Lasix, Lipitor, Lopressor, Merrem IV, Neurontin, Protonix, Seroquel, IV fluid, Synthroid, and Xifaxan. He has a white count of 2.7 labs, I do not know why, may he has been refusing them. I have been ordering them every day, he could be refusing them. I discussed about him being seen by Renal, Infectious Disease. I had Psychiatry seen him, but she did not see him yet because he was on endoscopy, GI seeing him. He has a couple of issues going on, hopefully to send him to the psychiatric floor if they will accept him. He has got multiple problems. He has UTI, hypertension, high cholesterol, hypothyroid, hepatitis C, hepatic encephalopathy with elevated ammonia level. The ammonia level on the 12/29/2017 was 99, still waiting for labs to come back. I will order them again tomorrow, hopefully . Wait and see what Psychiatry has to say. Edgar Cruz DO MTDD
--- NOTE | 2017-12-31 15:24 | CP.PCM.PN ---
Subjective - Date & Time of Evaluation Date of Evaluation: 12/31/17 Time of Evaluation: 15:20 - Subjective Subjective: RFV: Cirrhosis S: No acute events. No bleeding, abdominal pain, n/v. Tolerating diet. No fever. Feels better. Objective - Vital Signs/Intake and Output Vital Signs (last 24 hours): Temp Pulse Resp BP Pulse Ox 97.7 F 68 18 106/59 L 100 12/31/17 07:30 12/31/17 07:30 12/31/17 07:30 12/31/17 09:32 12/31/17 07:30 Intake and Output: 12/31/17 12/31/17 06:59 18:59 Intake Total 120 720 Output Total 3 Balance 120 717 - Medications Medications: Current Medications Aspirin (Ecotrin) 81 mg PO DAILY [facility] Last Admin: 12/31/17 09:31 Dose: 81 mg Atorvastatin Calcium (Lipitor) 20 mg PO DAILY [facility] Last Admin: 12/31/17 09:32 Dose: 20 mg Furosemide (Lasix) 40 mg PO DAILY [facility] Last Admin: 12/31/17 09:31 Dose: 40 mg Gabapentin (Neurontin) 100 mg PO BID [facility] PRN Reason: Protocol Last Admin: 12/31/17 09:32 Dose: 100 mg Gabapentin (Neurontin) 100 mg PO HS [facility] PRN Reason: Protocol Last Admin: 12/30/17 22:25 Dose: 100 mg Meropenem 250 mg/ Sodium (Chloride) 100 mls @ 100 mls/hr IVPB Q24H [facility] PRN Reason: Protocol Stop: 01/06/18 12:01 Last Admin: 12/31/17 12:52 Dose: 100 mls/hr Lactulose (Enulose) 20 gm PO QID [facility] Last Admin: 12/31/17 13:02 Dose: 20 gm Levothyroxine Sodium (Synthroid) 75 mcg PO 0600 [facility] Last Admin: 12/31/17 06:11 Dose: 75 mcg Metoprolol Tartrate (Lopressor) 12.5 mg PO BID [facility] Last Admin: 12/31/17 09:32 Dose: 12.5 mg Pantoprazole Sodium (Protonix Ec Tab) 40 mg PO 0600 [facility] Last Admin: 12/31/17 06:11 Dose: 40 mg Quetiapine Fumarate (Seroquel) 50 mg PO 0800,1400,1800 [facility] PRN Reason: Protocol Last Admin: 12/31/17 13:01 Dose: 50 mg Quetiapine Fumarate (Seroquel Xr) 400 mg PO HS [facility] PRN Reason: Protocol Last Admin: 12/30/17 22:24 Dose: 400 mg Rifaximin (Xifaxan) 550 mg PO BID [facility] PRN Reason: Protocol Last Admin: 12/31/17 09:31 Dose: 550 mg - Labs Labs: 12/31/17 10:34 12/31/17 10:34 PT 14.9 SECONDS (9.4-12.5) H 12/29/17 07:00 INR 1.29 (0.93-1.08) H 12/29/17 07:00 - Constitutional Appears: No Acute Distress, Chronically Ill - Head Exam Head Exam: ATRAUMATIC, NORMOCEPHALIC - Eye Exam Eye Exam: PERRL. absent: Scleral icterus - Neck Exam Neck Exam: absent: Lymphadenopathy, Thyromegaly - Respiratory Exam Respiratory Exam: Clear to Ausculation Bilateral, NORMAL BREATHING PATTERN - Cardiovascular Exam Cardiovascular Exam: REGULAR RHYTHM, +S1, +S2 - GI/Abdominal Exam GI & Abdominal Exam: Soft. absent: Tenderness - Neurological Exam Neurological Exam: Alert, Oriented x3 - Psychiatric Exam Psychiatric exam: Normal Affect, Normal Mood - Skin Skin Exam: Dry, Warm Assessment and Plan - Assessment and Plan (Free Text) Assessment: 62 year old male with hep c Cirrhosis a/w HE. 1. Hepatic encephalopathy 2. Hepatitis C cirrhosis 3. Pancytopenia Plan: -mental status is improved, no asterixis -Continue lactulose, titrate to 2-3 BM daily -Continue Rifaxamin -s/p unremarkable egd, await path -mildly positive sm musc ab, consider outpatient repeat -await viral load -elective triple phase CT but currently renal insuff precludes this -kidney function stable/mildly improved, nephrology following
[2017-12-31] MEDS: QUEtiapine 200 mg XR Tab PO SCH (21:48)
--- NOTE | 2018-01-01 00:31 | CON ---
DATE: HISTORY OF PRESENT ILLNESS: The patient is a 62-year-old male with reported history of bipolar disorder, hepatitis C, and hepatic encephalopathy. The patient is currently living in long-term, [facility]. The patient was referred by long-term staff for evaluation of agitated and combative behavior. Psych consult was called for evaluation of the patient's mental status as well as the patient has history of bipolar disorder and medication management. This blog writer attempted to speak to the patient yesterday, but unfortunately, the patient went for the procedure endoscopy. The patient is seen by this blog writer today. Before talking to the patient, collateral information was obtained from the nursing staff. The patient is calm and cooperative. There is no behavioral issues. The patient is compliant with the medication and socially appropriate. The patient was seen and examined. The patient presented to be alert. The patient was pleasant and cooperative. The patient is aware of the circumstances of his referral to the hospital. The patient said that he had verbal altercation with another consumer statement. The long-term send both for evaluation. The patient said that at present moment, he does not feel depressed. He denied thoughts of harming himself or others. The patient denied hearing voices or seeing things. The patient denied feeling anxious. The patient reported to have a good appetite and sleep. This blog writer is very familiar with this patient from the previous admission to the medical side when this blog writer was responding to code hobson. The patient was admitted to the medical side in 06/2017 for hepatic encephalopathy and Dr. Gautam was taking care of him last admission. Notes from the previous admission reviewed. Medications reviewed. The patient history of being admitted to the psychiatric inpatient unit here at [facility]. Going back to the patient's presentation, the patient was seen by Infectious Disease Team for possible urinary tract infection with E. coli. The patient is on Merrem. The patient also was seen by Dr. Emmanuel, engineering associate. Acute kidney injury, which is improving and and possible urinary tract infection and hepatitis, and cirrhosis with hepatic encephalopathy. This blog writer had prolonged conversation with Dr. Cruz yesterday. MEDICATIONS: Reviewed. The patient is on aspirin, Lipitor, Lasix, Neurontin 100 mg twice a day and 100 mg at the nighttime, lactulose, Synthroid, and Cozaar. The patient is on meropenem, Lopressor, Protonix, Seroquel extended release at the nighttime and Seroquel 50 mg three times a day scheduled, rifaximin 550 twice a day, and sodium chloride. LABORATORY DATA: Reviewed. WBC cells 2.7 and granulocytes 1.04 yesterday. We will repeat CBC with differentiation. Chemistry also reviewed. Creatinine was elevated. AST and ALT 145 and 96 respectively and ammonia level was 99. Urinalysis showed leukocyte esterase. Toxicology negative for any substances and immunology; immunoglobulin G is 2054. Microbiology showed E. coli in urine. PHYSICAL EXAMINATION: VITAL SIGNS: Going back to the patient's presentation, vital signs are stable. Temperature is 97.7, pulse is 68, blood pressure is 106/59, respirations are 18, and oxygen saturation is 100. MENTAL STATUS EXAM: The patient is pleasant, cooperative, socially appropriate, and fair eye contact. Speech was underproductive. There is some poverty of speech. Mood described as alright. Affect was constricted, but reactive. Mood congruent. Thought process seems to be coherent, but concrete. The patient denied visual, auditory, or tactile hallucinations. Denied paranoid ideations. In the past, the patient had history of visual hallucinations, but it was related to metabolic encephalopathy and delirium stage. Insight and judgment seems to be improving. Impulses are well controlled. As per the patient, the patient has legal guardian who was making decisions for him. IMPRESSION: History of bipolar disorder. The patient has multiple medical issues. The patient prone to have delirium due to his medical condition. The patient seems to be improving. PLAN: Continue Seroquel as of now. This blog writer will monitor granulocytes level as well as WBC cells. The patient has history of granulocytes as low as 0.97, which was in 06/2017. If the patient's WBC cells and granulocytes will be not improving, consider Hematology/Oncology on board. This blog writer will continue current management. There is no agitation, no aggression, and the patient is participating in treatment plan. Discussed with the nursing staff. Should you have any questions, give me a call back. Thank you very much for letting me to participate in the care of your patient. Susie Ordonez MD
--- NOTE | 2018-01-01 04:26 | PN ---
DATE: SUBJECTIVE: The patient is in bed, in no acute distress, nontoxic, was seen early this morning in room 567, bed 1. PHYSICAL EXAMINATION: VITAL SIGNS: On exam, temperature is 97, blood pressure is 106/50, respiratory rate of 18, heart rate of 68. HEENT: Unremarkable. NECK: Supple. LUNGS: Have decreased breath sounds. HEART: Normal S1 and S2. ABDOMEN: Soft. LABORATORY DATA: Laboratory examination reveals the patient to have white count of 2, hemoglobin of 9 and platelets of 53. Chemistries are noted, and the creatinine is 1.7. Urinalysis is noted, and toxicology is reviewed. Immunology is reviewed. Anti-smooth muscle antibody is positive, and the patient has had a HIV in 06/2017, which was negative. Microbiology growing E. coli in the urine culture, but the blood cultures have no growth. E. coli is pansensitive, though it is resistant to Cipro, it is sensitive to ampicillin; however, the patient is ALLERGIC TO PENICILLIN. Review of orders reveals the patient to be on meropenem. ASSESSMENT AND PLAN: This is a 62-year-old male seen earlier this morning with Escherichia coli urinary tract infection, and hypertension, dyslipidemia, hypothyroidism, hepatitis C. Currently on meropenem. There is significant urinalysis, and the patient is ALLERGIC TO PENICILLIN, with renal insufficiency, unable to use Bactrim, unable to use quinolones because of resistance, and PENICILLIN ALLERGY, limited options; should have a PSA to rule out underlying prostatitis. Dave Cifuentes MD
[2018-01-01] MEDS: Pantoprazole 40 mg EC Tab PO SCH (06:18)
[2018-01-01] MEDS: Levothyroxine 75 MCG TAB PO SCH (06:18)
[2018-01-01 07:13] LABS: HEMOGLOBIN 9.5 g/dL (14.0-18.0); MEAN CELL VOLUME 100.4 fl (80.0-105.0); MEAN CORPUSCULAR HEMOGLOBIN 34.9 pg (25.0-35.0); MEAN CORPUSCULAR HGB CONC 34.8 g/dl (31.0-37.0); RBC 2.72 10^6/uL (3.5-6.1)
[2018-01-01 07:23] LABS: WHITE BLOOD COUNT 2.5 10^3/ul (4.5-11.0)
[2018-01-01 07:48] LABS: ALB/GLOB RATIO 0.8 (1.1-1.8); ALBUMIN 2.8 g/dL (3.0-4.8); CALCIUM 8.5 mg/dL (8.4-10.5)
--- NOTE | 2018-01-01 09:24 | CON ---
DATE: 12/31/2017 HEMATOLOGY CONSULTATION HISTORY OF PRESENT ILLNESS: This is a 62-year-old man with pancytopenia. The patient gives a poor history, but on past experience, he is known to have cirrhosis and psychiatric history with psychiatric medications. PHYSICAL EXAMINATION: SKIN: No petechiae. No bruises. HEENT: Anicteric. No mucosal bleeding noted. NODES: Not palpable in the axillary, cervical, supraclavicular, inguinal regions. LUNGS: Clear at present. No vertebral tenderness. HEART: S1 and S2. ABDOMEN: Shows no palpable liver. No palpable spleen. No tenderness. No rebound. EXTREMITIES: Trace edema. LOG BUNCHER: No focal findings. ASSESSMENT AND PLAN: There are several issues. He has a white count of 2.0 with a hemoglobin of 9 and MCV of 101 and platelet count of 57,000. The sonogram shows a large spleen, splenomegaly about 14.7 cm with somewhat enlarged liver. 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 He does have an increased number of monocytes, about 15%, so I am going to do a flow cytometry to rule out any underlying lymphoproliferative disorder. For the elevated MCV of 101, I just want to rule out a B12 deficiency and a retic count that is elevated that might be causing this. So for now I am not going to give him any treatment. We are going to do these diagnostics. Gabo Martínez MD
[2018-01-01] MEDS ORDERED: Albumin Human 25% (12.5 gm/50 ml) IV SCH (10:00)
[2018-01-01] MEDS: Albumin Human 25% (12.5 gm/50 ml) IV SCH ×2 (11:58→17:28)
--- NOTE | 2018-01-01 12:16 | PN ---
DATE: SUBJECTIVE: I see him resting comfortably in bed. He slept fairly well. No bleeding. No abdominal pain. He is alert and comfortable. He is being seen by Infectious Disease, GI, Renal, and Psychiatry. He is on lactulose. We are checking his ammonia level. He had E. coli urinary tract infection, hypertension, high cholesterol, hypothyroidism, and hepatitis C. He is on Merrem. PHYSICAL EXAMINATION: VITAL SIGNS: Temperature 98.5, pulse 75, blood pressure 86/55, respiratory rate 18, and O2 sat 90% on room air. HEENT: His head is atraumatic, normocephalic. HEART: Regular rate. LUNGS: Clear to auscultation. ABDOMEN: Soft, obese. EXTREMITIES: No edema. MEDICATIONS: He is currently on aspirin, Enulose 4 times a day, Lasix, Lipitor, Lopressor, Merrem IV, Neurontin, Protonix, Seroquel, Synthroid, and Xifaxan. LABORATORY DATA: He has a sodium 142, potassium 4.5, BUN is 18, creatinine 1.8, GFR is 38, sugar is 101. Calcium is 8.5, total bilirubin is 0.7, AST is 154, ALT is 96, alkaline phosphatase 92, total protein 6.4, and his ammonia level is 109, it keeps on going up. He has a 2.5 white count, 9.5 hemoglobin, 27.3 hematocrit with a 58 platelets. Waiting for Hematology/Oncology to see him. We will continue aggressive treatment and care, IV antibiotics and lactulose. Checking his labs. Waiting for Hematology/Oncology for the low white count, low platelets. IV antibiotics as per Infectious Disease. plan for his ammonia level. Edgar Cruz DO MTDD
--- NOTE | 2018-01-01 13:28 | CP.PCM.PN ---
<Buddy Mane - Last Filed: 01/01/18 13:33> Subjective - Date & Time of Evaluation Date of Evaluation: 01/01/18 Time of Evaluation: 13:21 - Subjective Subjective: GI Progress note for Dr. Vaughn - Buddy Mane PGY2 Patient seen and examined this morning at bedside. No acute overnight events or new complaints reported. No reported bowel movements as of yet today. Per nursing, more confused today relative to baseline. Discussed need to maintain at least 2 bowel movements per day. Tolerating diet. Denies abdominal pain, nausea, vomiting 12point ROS as per above otherwise negative Objective - Vital Signs/Intake and Output Vital Signs (last 24 hours): Temp Pulse Resp BP Pulse Ox 98.5 F 75 18 86/55 L 98 01/01/18 07:30 01/01/18 09:15 01/01/18 07:30 01/01/18 09:15 01/01/18 07:30 Intake and Output: 01/01/18 01/01/18 06:59 18:59 Intake Total 1080 Balance 1080 - Medications Medications: Current Medications Albumin Human (Albumin Human 25% (12.5 Gm/50 Ml)) 25 gm IV Q6 [facility] Stop: 01/02/18 06:01 Last Admin: 01/01/18 11:58 Dose: 25 gm Aspirin (Ecotrin) 81 mg PO DAILY [facility] Last Admin: 01/01/18 09:14 Dose: 81 mg Atorvastatin Calcium (Lipitor) 20 mg PO DAILY [facility] Last Admin: 01/01/18 09:15 Dose: 20 mg Furosemide (Lasix) 40 mg PO DAILY [facility] Last Admin: 01/01/18 09:14 Dose: Not Given Gabapentin (Neurontin) 100 mg PO BID [facility] PRN Reason: Protocol Last Admin: 01/01/18 09:16 Dose: 100 mg Gabapentin (Neurontin) 100 mg PO HS [facility] PRN Reason: Protocol Last Admin: 12/31/17 21:48 Dose: 100 mg Meropenem 250 mg/ Sodium (Chloride) 100 mls @ 100 mls/hr IVPB Q24H [facility] PRN Reason: Protocol Stop: 01/06/18 12:01 Last Admin: 01/01/18 12:12 Dose: 100 mls/hr Lactulose (Enulose) 20 gm PO QID [facility] Last Admin: 01/01/18 13:13 Dose: 20 gm Levothyroxine Sodium (Synthroid) 75 mcg PO 0600 [facility] Last Admin: 01/01/18 06:18 Dose: 75 mcg Metoprolol Tartrate (Lopressor) 12.5 mg PO BID [facility] Last Admin: 01/01/18 09:15 Dose: Not Given Pantoprazole Sodium (Protonix Ec Tab) 40 mg PO 0600 [facility] Last Admin: 01/01/18 06:18 Dose: 40 mg Quetiapine Fumarate (Seroquel) 50 mg PO 0800,1400,1800 [facility] PRN Reason: Protocol Last Admin: 01/01/18 13:12 Dose: 50 mg Quetiapine Fumarate (Seroquel Xr) 400 mg PO HS [facility] PRN Reason: Protocol Last Admin: 12/31/17 21:48 Dose: 400 mg Rifaximin (Xifaxan) 550 mg PO BID [facility] PRN Reason: Protocol Last Admin: 01/01/18 09:16 Dose: 550 mg - Labs Labs: 01/01/18 06:45 01/01/18 06:45 PT 14.9 SECONDS (9.4-12.5) H 12/29/17 07:00 INR 1.29 (0.93-1.08) H 12/29/17 07:00 - Constitutional Appears: No Acute Distress, Chronically Ill - Head Exam Head Exam: ATRAUMATIC, NORMOCEPHALIC - Eye Exam Eye Exam: EOMI Pupil Exam: PERRL - ENT Exam ENT Exam: Mucous Membranes Moist - Neck Exam Neck Exam: Normal Inspection - Respiratory Exam Respiratory Exam: absent: Rales, Rhonchi, Wheezes - Cardiovascular Exam Cardiovascular Exam: +S1, +S2. absent: Gallop, Rubs - GI/Abdominal Exam GI & Abdominal Exam: Soft. absent: Firm, Guarding, Rigid, Tenderness, Rebound - Extremities Exam Extremities Exam: Normal Inspection. absent: Pedal Edema - Neurological Exam Neurological Exam: Alert, Awake - Psychiatric Exam Psychiatric exam: Normal Affect, Normal Mood - Skin Skin Exam: Dry, Intact, Normal Color, Warm Assessment and Plan - Assessment and Plan (Free Text) Plan: 62yo male with history of cirrhosis secondary to hepatitis C admitted with hepatic encephalopathy 1. Hepatic encephalopathy 2. Hepatitis C cirrhosis 3. Pancytopenia -Titrate lactulose to 2-3 bowel movements/day -Continue rifaxamin -Hepatitis C RNA viral load pending -Patient is s/p unremarkable EGD with biopsies; pending pathology -Mildly positive sm musc ab, consider outpatient repeat -Patient requires triple phase CT for evaluation of HCC but presently with renal insufficency; recommend follow up as an outpatient -No further GI intervention planned at this time. Recommend follow up as an outpatient. We will sign off this case, please reconsult as deemed necessary. Thank you for this consult. Patient seen and case discussed/reviewed with attending, Dr. Vaughn <London Vaughn MD - Last Filed: 01/01/18 14:36> Objective - Vital Signs/Intake and Output Vital Signs (last 24 hours): Temp Pulse Resp BP Pulse Ox 98.5 F 75 18 86/55 L 98 01/01/18 07:30 01/01/18 09:15 01/01/18 07:30 01/01/18 09:15 01/01/18 07:30 Intake and Output: 01/01/18 01/01/18 06:59 18:59 Intake Total 1080 Balance 1080 - Medications Medications: Current Medications Albumin Human (Albumin Human 25% (12.5 Gm/50 Ml)) 25 gm IV Q6 [facility] Stop: 01/02/18 06:01 Last Admin: 01/01/18 11:58 Dose: 25 gm Aspirin (Ecotrin) 81 mg PO DAILY [facility] Last Admin: 01/01/18 09:14 Dose: 81 mg Atorvastatin Calcium (Lipitor) 20 mg PO DAILY [facility] Last Admin: 01/01/18 09:15 Dose: 20 mg Furosemide (Lasix) 40 mg PO DAILY [facility] Last Admin: 01/01/18 09:14 Dose: Not Given Gabapentin (Neurontin) 100 mg PO BID [facility] PRN Reason: Protocol Last Admin: 01/01/18 09:16 Dose: 100 mg Gabapentin (Neurontin) 100 mg PO HS [facility] PRN Reason: Protocol Last Admin: 12/31/17 21:48 Dose: 100 mg Meropenem 250 mg/ Sodium (Chloride) 100 mls @ 100 mls/hr IVPB Q24H [facility] PRN Reason: Protocol Stop: 01/06/18 12:01 Last Admin: 01/01/18 12:12 Dose: 100 mls/hr Lactulose (Enulose) 20 gm PO QID [facility] Last Admin: 01/01/18 13:13 Dose: 20 gm Levothyroxine Sodium (Synthroid) 75 mcg PO 0600 [facility] Last Admin: 01/01/18 06:18 Dose: 75 mcg Metoprolol Tartrate (Lopressor) 12.5 mg PO BID [facility] Last Admin: 01/01/18 09:15 Dose: Not Given Pantoprazole Sodium (Protonix Ec Tab) 40 mg PO 0600 [facility] Last Admin: 01/01/18 06:18 Dose: 40 mg Quetiapine Fumarate (Seroquel) 50 mg PO 0800,1400,1800 [facility] PRN Reason: Protocol Last Admin: 01/01/18 13:12 Dose: 50 mg Quetiapine Fumarate (Seroquel Xr) 400 mg PO HS [facility] PRN Reason: Protocol Last Admin: 12/31/17 21:48 Dose: 400 mg Rifaximin (Xifaxan) 550 mg PO BID [facility] PRN Reason: Protocol Last Admin: 01/01/18 09:16 Dose: 550 mg - Labs Labs: 01/01/18 06:45 01/01/18 06:45 PT 14.9 SECONDS (9.4-12.5) H 12/29/17 07:00 INR 1.29 (0.93-1.08) H 12/29/17 07:00 Attending/Attestation - Attestation I have personally seen and examined this patient.: Yes I have fully participated in the care of the patient.: Yes I have reviewed all pertinent clinical information, including history, physical exam and plan: Yes Notes (Text): 01/01/18 14:35 Patient seen with biomedical instrument technician on rounds this morning. This is a 62 yr old M with HCv cirrhosis [place] for agitation and being combative in setting of hepatic encephalopathy which is resolved. He is oriented to self, place and time. Will continue lactulose and rifaximin - titrate to 2 BM/day. Will need triple phase CT scan to rule out HCC once renal function improves. s/ p EGD for variceal screening showed no varices. Biopsies pending. for H pylori. Low salt diet. Continue IV abx for UTI. Will sign off now. Thank you for letting us participate in the care of your patient
--- NOTE | 2018-01-01 14:01 | CP.PCM.PN ---
Subjective - Date & Time of Evaluation Date of Evaluation: 01/01/18 Time of Evaluation: 14:00 - Subjective Subjective: Follow up Nephrology Consultation Note Assessment: Stable Acute Kidney Injury (N17.9) stable Pancytopenia Possible UTI Hep C with cirrhosis and hepatic encephalopathy Plan No acute need for renal replacement therapy at this time. No ACEI/ARB due to recent JUANY. hold losartan. Monitor Input/Output, daily weights and renal function with basic metabolic panel UA against GN as the cause of JUANY d/c IVF but dose of IV albumin today due to low BP ID input for UTI appreciated Dose meds/antibiotics for reduced GFR. Avoid fleets enema/magnesium based laxatives. Avoid nephrotoxins/NSAIDs/ iodinated contrast (unless needed emergently) Glycemic control Further work up for as per primary team Thanks for allowing me to participate in care of your patient. Will follow patient with you. Please call if any Qs Dr Conrado Emmanuel Office: [phone] Subjective: Noted events overnight. Patients feels okay. Denies chest pain, palpitation, shortness of breath, leg swelling. All other negative Physical Examination: General Appearance: Comfortable, in no acute respiratory distress, co-operative . Vitals reviewed and noted as below Head; Atraumatic, normocephalic ENT: no ulcers no thrush. Tongue is midline. Oropharynx: no rash or ulcers. EYES: Pupils are equal, round and reactive to light accommodation. Eye muscles and extraocular movement intact. Sclera is anicteric. Neck; supple no lymphadenopathy, no thyromegaly or bruit Lungs: Normal respiratory rate/effort. Breath sounds bilateral equal and clear Heart: Normal rate. s1s2 normal. No rub or gallop. Extremities: no edema. No varicose veins Neurological: Patient is sleepy but and oriented to person, place and time. No focal deficit. Strength bilateral appropriate and equal Skin: Warm and dry. Normal turgor. No rash. Palpitation: Normal elasticity for age. has vitiligo Abdomen: Abdomen is soft. Bowel sounds +. There is no abdominal tenderness, no guarding/rigidity no organomegaly Psych: normal insight and normal affect/mood MSK: no joint tenderness or swelling. Digits and nails normal, no deformity : kidney or bladder not palpable Labs/imaging reviewed. Past medical history, past surgical history, family history, social history, allergy reviewed and noted as below Family hx: no hx of CKD. Rest non-contributory Renal sono WNL Objective - Vital Signs/Intake and Output Vital Signs (last 24 hours): Temp Pulse Resp BP Pulse Ox 98.5 F 75 18 86/55 L 98 01/01/18 07:30 01/01/18 09:15 01/01/18 07:30 01/01/18 09:15 01/01/18 07:30 Intake and Output: 01/01/18 01/01/18 06:59 18:59 Intake Total 1080 Balance 1080 - Medications Medications: Current Medications Albumin Human (Albumin Human 25% (12.5 Gm/50 Ml)) 25 gm IV Q6 [facility] Stop: 01/02/18 06:01 Last Admin: 01/01/18 11:58 Dose: 25 gm Aspirin (Ecotrin) 81 mg PO DAILY [facility] Last Admin: 01/01/18 09:14 Dose: 81 mg Atorvastatin Calcium (Lipitor) 20 mg PO DAILY [facility] Last Admin: 01/01/18 09:15 Dose: 20 mg Furosemide (Lasix) 40 mg PO DAILY [facility] Last Admin: 01/01/18 09:14 Dose: Not Given Gabapentin (Neurontin) 100 mg PO BID [facility] PRN Reason: Protocol Last Admin: 01/01/18 09:16 Dose: 100 mg Gabapentin (Neurontin) 100 mg PO HS [facility] PRN Reason: Protocol Last Admin: 12/31/17 21:48 Dose: 100 mg Meropenem 250 mg/ Sodium (Chloride) 100 mls @ 100 mls/hr IVPB Q24H [facility] PRN Reason: Protocol Stop: 01/06/18 12:01 Last Admin: 01/01/18 12:12 Dose: 100 mls/hr Lactulose (Enulose) 20 gm PO QID [facility] Last Admin: 01/01/18 13:13 Dose: 20 gm Levothyroxine Sodium (Synthroid) 75 mcg PO 0600 [facility] Last Admin: 01/01/18 06:18 Dose: 75 mcg Metoprolol Tartrate (Lopressor) 12.5 mg PO BID [facility] Last Admin: 01/01/18 09:15 Dose: Not Given Pantoprazole Sodium (Protonix Ec Tab) 40 mg PO 0600 [facility] Last Admin: 01/01/18 06:18 Dose: 40 mg Quetiapine Fumarate (Seroquel) 50 mg PO 0800,1400,1800 [facility] PRN Reason: Protocol Last Admin: 01/01/18 13:12 Dose: 50 mg Quetiapine Fumarate (Seroquel Xr) 400 mg PO HS [facility] PRN Reason: Protocol Last Admin: 12/31/17 21:48 Dose: 400 mg Rifaximin (Xifaxan) 550 mg PO BID [facility] PRN Reason: Protocol Last Admin: 01/01/18 09:16 Dose: 550 mg - Labs Labs: 01/01/18 06:45 01/01/18 06:45 PT 14.9 SECONDS (9.4-12.5) H 12/29/17 07:00 INR 1.29 (0.93-1.08) H 12/29/17 07:00
--- NOTE | 2018-01-01 17:51 | CON ---
DATE: HEMATOLOGY CONSULTATION This is a re-dictation. HISTORY OF PRESENT ILLNESS: This is a 62-year-old man with pancytopenia, a history of psychiatric issues and also cirrhosis. His blood counts include a white count of about 2.5 and hemoglobin 9.5 with an MCV of 101 and platelet count of 58,000. PHYSICAL EXAMINATION SKIN: No petechiae. No bruises. HEENT: Anicteric. NODES: Nonpalpable in the axillary, cervical, supraclavicular, or inguinal regions. LUNGS: Clear. The patient was able to lie flat. HEART: S1 and S2. ABDOMEN: Showed no liver, no spleen, no rebound, and no ascites. EXTREMITIES: No edema. CENTRAL NERVOUS SYSTEM: No focal findings. ASSESSMENT: I had ordered a B12 level to rule out B12 deficiency causing pancytopenia. His B12 level is 608. His reticulocyte count is 1.4, which is normal. This is not hemolytic process or myelodysplastic. His ultrasound shows a splenomegaly about 14.7 cm and this is consistent with hypersplenism. He also had an increased number of monocytes of about 15% and I ordered a flow cytometry to rule out any lymphoproliferative disorder, this is not back as yet. So at this point, his blood count seems to be relatively stable since admission over the last 5 days and we will look to GI to evaluate for the so hemoglobin drop and I am waiting for the flow cytometry. No treatment from me at this point. Gabo Martínez MD
--- NOTE | 2018-01-01 19:31 | PN ---
DATE: SUBJECTIVE: Patient was followed up today. As per reports from the nursing staff, patient is calm, cooperative, takes in medication, no behavioral issues. Patient was initially evaluated yesterday. Patient is very familiar to this check writer salesperson from the previous admission on the medical site when patient was agitated, needed to have code abarca. This admission, patient deemed to be back in better shape. Patient is much calmer. Patient reported that he tolerates medications well. No side effects observed or reported. Patient reported to have good appetite and sleep. Mood is improving. VITAL SIGNS: Reviewed, stable. Temperature 98.5, pulse 75, blood pressure is 86/55, respiration 18, oxygen saturation is 98. MEDICATIONS: Reviewed. Patient is on Neurontin, Lasix, Lipitor, aspirin. Patient also is on Synthroid, Protonix, Seroquel extended release 400 mg at the nighttime and Seroquel 50 mg three times a day. LABORATORY DATA: In regards of the labs, WBC cells are low at 2.5, but granulocytes were not done today. Yesterday, it was 0.93. Would repeat these labs tomorrow. Ammonia level is 154 today. Microbiology reviewed, E-coli in urine. MENTAL STATUS EXAMINATION: Patient presented well, alert and oriented, pleasant, cooperative, socially appropriate. Mood described, I feel okay. Affect was reactive, mood congruent. Thought process seems to be concrete. Thought content, patient denied visual, auditory, or tactile hallucinations. Denied paranoid ideation. Patient denied thoughts of harming himself or others. Denied intents or plan. Insight and judgment seems to be improving. Impulses are well controlled. IMPRESSION: History of schizoaffective disorder, bipolar disorder, rule out delirium. PLAN: Continue current management. Patient has a legal guardian. Patient should be continued on the medication. Seems to be doing well in regards of the presentation. Patient's platelets are low and granulocytes were low yesterday. We will check on repeated blood work. We will consider Hematology/Oncology to be involved. Should you have any questions, give me a call back. In regards to have Psych admission, patient does not meet the criteria for Psych admission as of now. We will keep monitoring closely. Should you have any questions, give me a call back Susie Ordonez MD [facility] # [id number]
[2018-01-01] MEDS: QUEtiapine 200 mg XR Tab PO SCH (21:19)
--- NOTE | 2018-01-01 23:49 | PN ---
DATE: 01/01/2018 SUBJECTIVE: Patient is seen earlier this morning in 567, bed 1. Patient has no fevers, no chills. PHYSICAL EXAMINATION: VITAL SIGNS: Overall on exam, temperature is 98, blood pressure is 86/50, respiratory rate of 18, heart rate of 75. HEENT: Unremarkable. NECK: Supple. LUNGS: Have decreased breath sounds. HEART: Normal S1, S2. ABDOMEN: Soft. LABORATORY DATA: Reveals a white count of 2.5, hemoglobin of 9.5, platelets of 58. BUN of 18, creatinine of 1.8. Urinalysis is noted. Microbiology reveals the blood cultures are negative. Urine cultures, E. coli, that is pansensitive E. coli; however, it is resistant to Cipro, it is sensitive to ampicillin. Patient is allergic to penicillin. REVIEW OF ORDERS: Reveals the patient to be on meropenem. ASSESSMENT AND PLAN: This is a 62-year-old male seen earlier this morning with Escherichia coli urinary tract infection and hypertension, dyslipidemia, hypothyroidism, hepatitis C. Currently on meropenem. PATIENT IS ALLERGIC TO PENICILLIN and resistant to quinolone, limited options. Awaiting for PSA. On meropenem. Duration of therapy, should have a Urology evaluation. We will order PSA to rule out prostatitis and we will repeat urinalysis and urine culture. Dave Cifuentes MD
[2018-01-02] MEDS ORDERED: Albumin Human 25% (25 gm/100 ml) IV SCH (00:02)
[2018-01-02] MEDS: Albumin Human 25% (25 gm/100 ml) IV SCH ×2 (00:12→06:33)
[2018-01-02 03:43] LABS: URINE BILIRUBIN NEGATIVE (NEGATIVE); URINE BLOOD NEGATIVE (NEGATIVE); URINE GLUCOSE (UA) NEGATIVE (NEGATIVE); URINE LEUKOCYTE ESTERASE TRACE Leu/uL (NEGATIVE); URINE NITRATE NEGATIVE (NEGATIVE); URINE PROTEIN NEGATIVE mg/dL (<30 mg/dL); URINE UROBILINOGEN 0.2 E.U./dL (<1 E.U./dL)
[2018-01-02 03:55] LABS: URINE APPEARANCE CLEAR (CLEAR); URINE COLOR YELLOW (YELLOW)
[2018-01-02 04:11] LABS: URINE RBC 0 - 2 /hpf (0-2)
[2018-01-02 04:12] LABS: URINE BACTERIA OCC (NEG)
[2018-01-02] MEDS: Pantoprazole 40 mg EC Tab PO SCH (06:33)
[2018-01-02] MEDS: Levothyroxine 75 MCG TAB PO SCH (06:33)
[2018-01-02 07:30] LABS: EOS # 0.1 (0.0-0.7); EOS % 2.9 % (1.5-5.0); GRAN # 1.16 (1.4-6.5); GRAN % 48.5 % (50.0-68.0); LYMPH # 0.8 (1.2-3.4); LYMPH % 33.1 % (22.0-35.0); MEAN CORPUSCULAR HEMOGLOBIN 35.3 pg (25.0-35.0); MEAN CORPUSCULAR HGB CONC 35.3 g/dl (31.0-37.0); MEAN PLATELET VOLUME 11.7 fl (7.0-11.0); MONO # 0.4 (0.1-0.6); MONO % 15.5 % (1.0-6.0); RBC 2.55 10^6/uL (3.5-6.1)
[2018-01-02 08:02] LABS: WHITE BLOOD COUNT 2.4 10^3/ul (4.5-11.0)
[2018-01-02 08:03] LABS: ALBUMIN 3.4 g/dL (3.0-4.8)
[2018-01-02 08:26] VITALS: PULSE 86; RESP 16; TEMP 98.8; O2SAT 97
--- NOTE | 2018-01-02 12:43 | CP.PCM.PN ---
Subjective - Date & Time of Evaluation Date of Evaluation: 01/02/18 Time of Evaluation: 12:41 - Subjective Subjective: Follow up Nephrology Consultation Note Assessment: Stable Acute Kidney Injury (N17.9) stable Pancytopenia Possible UTI Hep C with cirrhosis and hepatic encephalopathy Plan No acute need for renal replacement therapy at this time. hold losartan as BP on low side and has JUANY. Monitor Input/Output, daily weights and renal function with basic metabolic panel UA against GN as the cause of JUANY ID input for UTI appreciated continue with lasix as tolerated by BP. may consider oral midodrine if needed for low BP Dose meds/antibiotics for reduced GFR. Avoid fleets enema/magnesium based laxatives. Avoid nephrotoxins/NSAIDs/ iodinated contrast (unless needed emergently) Glycemic control Further work up for as per primary team pt stable for d/c from renal perspective when planned Thanks for allowing me to participate in care of your patient. Will follow patient with you. Please call if any Qs Dr Conrado Emmanuel Office: [phone] Subjective: Noted events overnight. Patients feels okay. Denies chest pain, palpitation, shortness of breath, leg swelling. All other negative Physical Examination: General Appearance: Comfortable, in no acute respiratory distress, co-operative . Vitals reviewed and noted as below Head; Atraumatic, normocephalic ENT: no ulcers no thrush. Tongue is midline. Oropharynx: no rash or ulcers. EYES: Pupils are equal, round and reactive to light accommodation. Eye muscles and extraocular movement intact. Sclera is anicteric. Neck; supple no lymphadenopathy, no thyromegaly or bruit Lungs: Normal respiratory rate/effort. Breath sounds bilateral equal and clear Heart: Normal rate. s1s2 normal. No rub or gallop. Extremities: no edema. No varicose veins Neurological: Patient is awake and oriented to person, place and time. No focal deficit. Strength bilateral appropriate and equal Skin: Warm and dry. Normal turgor. No rash. Palpitation: Normal elasticity for age. has vitiligo Abdomen: Abdomen is soft. Bowel sounds +. There is no abdominal tenderness, no guarding/rigidity no organomegaly Psych: normal insight and normal affect/mood MSK: no joint tenderness or swelling. Digits and nails normal, no deformity : kidney or bladder not palpable Labs/imaging reviewed. Past medical history, past surgical history, family history, social history, allergy reviewed and noted as below Family hx: no hx of CKD. Rest non-contributory Renal sono WNL Objective - Vital Signs/Intake and Output Vital Signs (last 24 hours): Temp Pulse Resp BP Pulse Ox 98.8 F 86 16 134/67 97 01/02/18 06:00 01/02/18 09:22 01/02/18 06:00 01/02/18 09:22 01/02/18 06:00 Intake and Output: 01/02/18 01/02/18 06:59 18:59 Intake Total 1140 Output Total 350 Balance 790 - Medications Medications: Current Medications Aspirin (Ecotrin) 81 mg PO DAILY [facility] Last Admin: 01/02/18 09:21 Dose: 81 mg Atorvastatin Calcium (Lipitor) 20 mg PO DAILY [facility] Last Admin: 01/02/18 09:22 Dose: 20 mg Furosemide (Lasix) 40 mg PO DAILY [facility] Last Admin: 01/02/18 09:21 Dose: 40 mg Gabapentin (Neurontin) 100 mg PO BID [facility] PRN Reason: Protocol Last Admin: 01/02/18 09:23 Dose: 100 mg Gabapentin (Neurontin) 100 mg PO HS [facility] PRN Reason: Protocol Last Admin: 01/01/18 21:19 Dose: 100 mg Meropenem 250 mg/ Sodium (Chloride) 100 mls @ 100 mls/hr IVPB Q24H [facility] PRN Reason: Protocol Stop: 01/06/18 12:01 Last Admin: 01/01/18 12:12 Dose: 100 mls/hr Lactulose (Enulose) 20 gm PO QID [facility] Last Admin: 01/02/18 09:21 Dose: 20 gm Levothyroxine Sodium (Synthroid) 75 mcg PO 0600 [facility] Last Admin: 01/02/18 06:33 Dose: 75 mcg Metoprolol Tartrate (Lopressor) 12.5 mg PO BID [facility] Last Admin: 01/02/18 09:22 Dose: 12.5 mg Pantoprazole Sodium (Protonix Ec Tab) 40 mg PO 0600 [facility] Last Admin: 01/02/18 06:33 Dose: 40 mg Quetiapine Fumarate (Seroquel) 50 mg PO 0800,1400,1800 [facility] PRN Reason: Protocol Last Admin: 01/02/18 08:14 Dose: 50 mg Quetiapine Fumarate (Seroquel Xr) 400 mg PO HS [facility] PRN Reason: Protocol Last Admin: 01/01/18 21:19 Dose: 400 mg Rifaximin (Xifaxan) 550 mg PO BID [facility] PRN Reason: Protocol Last Admin: 01/02/18 10:43 Dose: 550 mg - Labs Labs: 01/02/18 06:20 01/02/18 06:20 PT 14.9 SECONDS (9.4-12.5) H 12/29/17 07:00 INR 1.29 (0.93-1.08) H 12/29/17 07:00
[2018-01-02] MEDS ORDERED: Tmp-Smz 400 mg-80 mg SS Tab PO SCH (15:45)
[2018-01-02 17:33] VITALS: BP 106/60
--- NOTE | 2018-01-02 17:34 | PN ---
DATE: SUBJECTIVE: Shortly, the patient is a 62-year-old male with long history of bipolar disorder versus schizoaffective disorder. The patient currently is on the medical side for change in mental status, elevated ammonia level. The patient was followed up by this science writer for evaluation of change in mental status as well as the patient has history of mental illness and the patient required med management. This science writer is very familiar with this patient from the previous admission on the medical side where the patient was agitated, confused. In this admission, patient is pleasant, cooperative, socially appropriate and compliant with the medication and treatment plan. There is no aggression, no agitation. The patient was followed up today, discussed with attending Dr. Cruz. The patient's WBC cells 2.4 and granulocytes 1.16 today, yesterday it was 0.93. Plan was discussed to call Hematology and Oncology. OBJECTIVE: VITAL SIGNS: Stable. Temperature 98.8, pulse is 86, blood pressure 134/67, respirations 16, oxygen saturation is 97. MEDICATIONS: Reviewed. Aspirin, Lipitor, Lasix, Neurontin 100 mg at the nighttime and 100 mg twice a day, lactulose, Synthroid, meropenem, Lopressor, Protonix, Seroquel 400 mg at the nighttime and 50 mg three times a day as well as . Labs reviewed today; 2.4 of WBC cells and granulocytes are 1.6. This science writer reviewed the previous lab work. The patient had the similar presentation and granulocytes were low 0.97 in 06/2017. The patient has history of low WBC cells. Patient needs to continue to current psychotropic medication because if he is off psychotropic medication, patient is aggressive, agitated as well as very confused. MENTAL STATUS EXAMINATION: Patient is pleasant, cooperative, socially appropriate, compliant with medications. Fair eye contact. Speech, underproductive and poverty of speech. Mood described I feel better. Affect was reactive, mood congruent. Thought process seems to be concrete. Thought content, the patient has some thoughts. Denied visual, auditory, tactile hallucinations. Denied paranoid ideation. The patient does not present to be psychotic. Insight and judgment seems to be limited but improving. Impulses are well controlled. IMPRESSION: As per history, schizoaffective disorder versus bipolar disorder. PLAN: Continue current management. The patient's ammonia level was elevated right now. At present moment, the patient is on lactulose. The patient has low WBC cells as well as granulocytes. This science writer recommended Hematology/Oncology to be on board. In regards of the mental status, the patient is doing much better to compare with the previous admission. The patient has legal guardian and treatment plan need to be discussed with the legal guardian. Should you have any questions give me a call back. We will follow up and advise accordingly. Thank you very much for letting me to participate in care of your patient. At present moment, the patient needs to continue psychotropic medication because based on the previous admission, patient was severely agitated and juan antonio abarca was called several times. Thank you very much. Susie Ordonez MD
--- NOTE | 2018-01-02 22:47 | PN ---
DATE: SUBJECTIVE: I saw him resting comfortably in bed. He slept well. He is eating well. He is in good spirits. He has no complaints. No more combative behaviors. PHYSICAL EXAMINATION: VITAL SIGNS: 98.8 temp, 86 pulse, 134/67 blood pressure, 16 respiratory rate, 97% O2 sat on room air. HEENT: His head is atraumatic, normocephalic. HEART: Regular rate. LUNGS: Clear to auscultation. ABDOMEN: Soft, obese. EXTREMITIES: No edema. MEDICATIONS: He is currently on Ecotrin, Enulose, Lasix, Lipitor, Lopressor, Merrem IV, Neurontin, Protonix, Seroquel, Synthroid, Xifaxan. LABORATORY DATA: He has a 2.4 white count, 9 hemoglobin, 25.5 hematocrit, with a 58 platelets. Sodium 142, potassium 4.2, BUN is 18, creatinine is 1.6, GFR is 44, sugar is 99, calcium is 9, total bili is 0.8, AST is 153, 81, ammonia level is up to 154, albumin is 6.8. PSA is 0.3, low. Vitamin B12 is 608. Urine is trace, it was moderate in the beginning, he is doing well. ASSESSMENT AND PLAN: Overall, I think he is doing quite well. He is being seen by Infectious Disease, Psychiatry, Renal, Gastroenterology, Hematology. Hematology said it is okay to go. Gastroenterology said it is okay to go. Psychiatry is happy with him. It is just that Infectious disease asked me to get Urology in to see him. He is still on IV antibiotics. If Urology says okay, then we could discharge him back to his facility. When he gets the okay from Urology and Infectious Disease, we will discharge him. Labs tomorrow. Continue IV antibiotics. Edgar Cruz DO MTDD
--- NOTE | 2018-01-03 03:08 | PN ---
DATE: 01/02/2018 SUBJECTIVE: Patient is in bed, in no acute distress, nontoxic, was seen early this morning. PHYSICAL EXAMINATION: VITAL SIGNS: Temperature is 98, blood pressure is 120/70, respiratory rate of 16. HEENT: Unremarkable. NECK: Supple. LUNGS: Have decreased breath sounds. HEART: Normal S1 and S2. ABDOMEN: Soft, nontender. LABORATORY EXAMINATION: Reviewed. Cultures are reviewed. ASSESSMENT AND PLAN: This is a 62-year-old male with Escherichia coli urinary tract infection, dyslipidemia, hypothyroidism, hepatitis C, on meropenem. Because of the allergy, unable to use quinolones, limited options. Patient's prostate-specific antigen is 0.3. Short course of antibiotics would be adequate. Dave Cifuentes MD
--- NOTE | 2018-01-03 10:30 | CP.PCM.PCO ---
Physician Communication Note - Physician Communication Note Physician Communication Note: pt was discharged
== END 2018-01-02 20:50 | DRG 442 ==
LOC: ED 12:16 → ERH 18:23 → 5RNO 20:21 → UNDODISIN 01-02 14:32
PROVIDERS: ADMIT Family Medicine; ATTEND Family Medicine
DX: K72.90 Hepatic failure, unspecified without coma (principal); N39.0 Urinary tract infection, site not specified; D61.818 Other pancytopenia; N17.9 Acute kidney failure, unspecified; B19.20 Unspecified viral hepatitis C without hepatic coma; K74.60 Unspecified cirrhosis of liver; E78.00 Pure hypercholesterolemia, unspecified; E03.9 Hypothyroidism, unspecified; F31.9 Bipolar disorder, unspecified; D73.1 Hypersplenism; I11.0 Hypertensive heart disease with heart failure; I50.9 Heart failure, unspecified; B96.20 Unspecified Escherichia coli [E. coli] as the cause of diseases classified elsewhere; F25.9 Schizoaffective disorder, unspecified; Z88.0 Allergy status to penicillin